=== PATIENT | female | born 1945 | race Caucasian/White ===

== ENCOUNTER 2017-08-20 10:10 | Inpatient (IN) | payer MEDICARE ==
[~2017-08-20] VITALS: Ht 162.6 cm; Wt 79.4 kg
[~2017-08-20 10:10] MED LIST: ADVAIR 500/501 EA INH; ASPIRIN CHEW81 MG PO; ATROVENT HFA12.9 GM INH; CLONAZEPAM1 M1 PO; FOSINOPRIL SODI10 MG PO; GEMFIBROZIL600 MG PO; HYDRALAZINE HCL25 MG PO; INDOMETHACIN1 MG PO; LASIX20 MG PO; METOPROLOL SUCC50 MG PO; NEURONTIN100 MG PO; NOVOLOG MI100 UNITS/ SC; OMEPRAZOLE40 MG PO; PROMETHAZINE HC25 M1 PO; SERTRALINE HCL50 MG PO; TIZANIDINE HCL4 MG PO; TRAZODONE HCL50 MG PO; TYLENOL # 31 EA PO
--- OUTSIDE RECORDS SUMMARY | 2017-08-20 10:13 | XMS REPORT | Clinical Summary ---
Author Author [facility] Address Unknown Phone Unavailable Care Team Providers Care Light Adjuster Name Role Phone Anuja Palacios MD PCP Allergies No Known Allergies Current Medications Prescription Sig. Disp. Refills Start End Date Status Date acetaminophen-codeine Take 1 tablet by mouth 4 Active (TYLENOL WITH CODEINE #3) (four) times a day. 300-30 mg per tablet atorvastatin (LIPITOR) 10 Take 10 mg by mouth every Active MG tablet morning. cyanocobalamin 1,000 Inject 1,000 mcg into the Active mcg/mL injection shoulder, thigh, or buttocks every 30 (thirty) days. donepezil (ARICEPT) 10 MG Take 10 mg by mouth Active tablet nightly. ferrous sulfate 325 (65 Take 325 mg by mouth Active FE) MG tablet daily with breakfast. folic acid (FOLVITE) 1 MG Take 1 mg by mouth every Active tablet morning. gabapentin (NEURONTIN) Take 300 mg by mouth 3 Active 300 mg capsule (three) times a day. levETIRAcetam (KEPPRA) Take 750 mg by mouth Active 750 MG tablet nightly. levothyroxine (SYNTHROID, Take 50 mcg by mouth Active LEVOXYL) 50 mcg tablet every morning. insulin asp prt-insulin Inject 25 Units under the Active ASPART (NovoLOG 70/30) skin every morning. 100 unit/mL (70-30) injection insulin asp prt-insulin Inject 20 Units under the Active ASPART (NovoLOG 70/30) skin nightly. 100 unit/mL (70-30) injection nystatin (MYCOSTATIN) Apply 1 application Active 100,000 unit/gram cream topically 2 (two) times a day. omeprazole (PriLOSEC) 40 Take 40 mg by mouth every Active MG capsule morning. ondansetron (ZOFRAN) 4 MG Take 4 mg by mouth every Active tablet 6 (six) hours as needed for nausea or vomiting. promethazine (PHENERGAN) Take 25 mg by mouth daily Active 25 MG tablet as needed for nausea or vomiting. sertraline (ZOLOFT) 50 MG Take 50 mg by mouth every Active tablet morning. tiZANidine (ZANAFLEX) 4 Take 4 mg by mouth 2 Active MG tablet (two) times a day. traMADol (ULTRAM) 50 mg Take 50 mg by mouth every Active tablet 6 (six) hours as needed for moderate pain. traZODone (DESYREL) 150 Take 150 mg by mouth Active MG tablet nightly. amLODIPine (NORVASC) 10 Take 10 mg by mouth Active mg tablet nightly. aspirin (ECOTRIN) 81 MG Take 81 mg by mouth Active enteric coated tablet daily. fluticasone (FLONASE) 50 1 spray by Each Nare Active mcg/actuation nasal spray route 2 (two) times a day. metoprolol tartrate Take 25 mg by mouth 2 Active (LOPRESSOR) 25 mg tablet (two) times a day. mirtazapine (REMERON) 45 Take 45 mg by mouth Active MG tablet nightly. docusate sodium (COLACE) Take 100 mg by mouth Active 100 MG capsule every morning. insulin ASPART (NovoLOG Inject 0-8 Units under Active Flexpen U-100 Insulin) the skin 3 (three) times 100 unit/mL insulin pen a day with meals. furosemide (LASIX) 20 mg Take 20 mg by mouth Active tablet daily. hydrALAZINE (APRESOLINE) Take 1 tablet (50 mg 90 tablet 2 08/14/19 09/13/19 Active 50 MG tablet total) by mouth 3 (three) 18 18 times a day for 30 days. amoxicillin-pot Take 1 tablet by mouth 2 14 tablet 0 08/14/19 Active clavulanate (AUGMENTIN) (two) times a day for 7 18 18 875-125 mg per tablet days. FLUTICASONE/SALMETEROL Inhale 3 puffs daily. 08/07/19 Discontin (ADVAIR HFA INHL) 18 ued AMLODIPINE BESYLATE, 10 mg daily. 08/07/19 Discontin BULK, MISC 18 ued clonIDINE (CATAPRES) 0.1 Take 0.1 mg by mouth 06/02/19 Discontin MG tablet nightly. 18 ued FLUTICASONE PROPIONATE, 2 sprays daily. 50 mcg/ 08/07/19 Discontin BULK, MISC spray 18 ued mirtazapine (REMERON) 15 Take 45 mg by mouth 08/07/19 Discontin MG tablet nightly. 18 ued insulin ASPART (NovoLOG) Inject under the skin 3 08/07/19 Discontin 100 unit/mL injection (three) times a day 18 ued before meals. Sliding scale nitrofurantoin Take 100 mg by mouth 2 05/26/20 06/02/19 Discontin (MACRODANTIN) 100 MG (two) times a day. 17 18 ued capsule metoprolol tartrate Take 1 tablet (25 mg 60 tablet 0 06/02/19 Discontin (LOPRESSOR) 25 mg tablet total) by mouth 2 (two) 18 18 ued times a day for 30 days. sulfamethoxazole-trimetho Take 1 tablet by mouth 2 14 tablet 0 06/02/19 Discontin prim (BACTRIM DS) 800-160 (two) times a day for 7 18 18 ued mg per tablet days. aspirin (ECOTRIN) 81 MG Take 1 tablet (81 mg 30 tablet 0 06/02/19 Discontin enteric coated tablet total) by mouth daily for 18 18 ued 30 days. sulfamethoxazole-trimetho Take 1 tablet by mouth 2 14 tablet 0 06/09/19 prim (BACTRIM DS) 800-160 (two) times a day for 7 18 18 mg per tablet days. metoprolol tartrate Take 1 tablet (25 mg 60 tablet 0 06/02/19 (LOPRESSOR) 25 mg tablet total) by mouth 2 (two) 18 18 times a day for 30 days. aspirin (ECOTRIN) 81 MG Take 1 tablet (81 mg 30 tablet 0 06/02/19 enteric coated tablet total) by mouth daily for 18 18 30 days. hydrALAZINE (APRESOLINE) Take 1 tablet (25 mg 90 tablet 0 06/02/19 07/02/19 25 MG tablet total) by mouth every 8 18 18 (eight) hours for 30 days. clonIDINE (CATAPRES) 0.1 Take 0.1 mg by mouth 08/14/19 Discontin MG tablet nightly. 18 ued hydrALAZINE (APRESOLINE) Take 25 mg by mouth 3 08/14/19 Discontin 25 MG tablet (three) times a day. 18 ued Active Problems Problem Noted Date Pneumonia due to infectious organism 08/06/2017 Encephalopathies 06/01/2017 Dementia without behavioral disturbance 06/01/2017 Acute cystitis without hematuria 05/31/2017 Stroke 06/01/2007 Hepatitis C 06/01/2006 Overview: Treated Cirrhosis 06/01/2006 Diabetes mellitus 06/01/1994 Hypertension Renal disorder Encounters Date Type Specialty Care Team Description 08/13/2017 Patient Quality Angelica Ibrahim, PEGGY Outreach 08/13/2017 Documentation Trust Mail Clerk Tom Saldivar RN 08/06/2017 [facility] General Internal Medicine Wyatt Barriga MD Pneumonia due to - Encounter Avinash Zaragoza MD infectious organism, 08/13/2017 unspecified laterality, unspecified part of lung (Primary Dx); COPD exacerbation; Shortness of breath; Weakness; Chronic kidney disease, unspecified CKD stage 05/31/2017 [facility] General Internal Medicine Dana Causey MD Acute cystitis without - Encounter Anjum Jones, hematuria (Primary Dx) 06/02/2017 DO Halley Landry MD after 08/19/2016 Immunizations Name Dates Previously Given Next Due Pneumococcal Conjugate 08/08/2017 [facility] Social History Tobacco Use Types Packs/Day Years Used Date Never Smoker Smokeless Tobacco: Never Used Alcohol Use Drinks/Week oz/Week Comments No Sex Assigned at Date Recorded Not on file Last Filed Vital Signs Vital Sign Reading Time Taken Blood Pressure 158/65 08/13/2017 11:45 AM CDT Pulse 68 08/13/2017 11:45 AM CDT Temperature 36.5 C (97.7 F) 08/13/2017 11:45 AM CDT Respiratory Rate 20 08/13/2017 11:45 AM CDT Oxygen Saturation 98% 08/13/2017 11:45 AM CDT Inhaled Oxygen - - Concentration Weight 103 kg (226 lb) 08/06/2017 8:02 PM HEARINGS REPORTER Height 162.6 cm (5' 4") 08/06/2017 8:02 PM HEARINGS REPORTER Body Mass Index 38.79 08/06/2017 8:02 PM HEARINGS REPORTER Plan of Treatment Health Maintenance Due Date Last Done Comments FOOT EXAM 08/29/1955 OPHTHALMOLOGY EXAM 08/29/1955 COLONOSCOPY 08/29/1995 MAMMOGRAM 08/29/1995 ZOSTER VACCINE 2005 PNEUMOCOCCAL 2010 POLYSACCHARIDE VACCINE AGE 65 AND OVER INFLUENZA VACCINE 12/30/2016 PNEUMOCOCCAL-13 Completed 08/08/2017 Procedures Procedure Name Priority Date/Time Associated Diagnosis Comments ECHOCARDIOGRAM 2D Routine 08/07/2017 Results for this COMPLETE W MMODE SPECTRAL 10:52 AM HEARINGS REPORTER procedure are in the COLOR DOPPLER (97357) results section. after 08/19/2016 Results * POC glucose (08/13/2017 11:46 AM) Only the most recent of 33 results within the time period is included. Component Value Ref Range POC glucose 261 (H) 65 - 100 mg/dL Comment: Meter ID: [id number] Railroad Surveyor: Christiane Fischer Specimen Performing Laboratory [facility] DEPARTMENT OF PATHOLOGY AND GENOMIC MEDICINE [address] [place] [address] * Surgical pathology request (08/12/2017 12:03 PM) Component Value Ref Range Surgical pathology report See link below for PDF Lab Report Result status This is Final Report to [id number] Specimen Performing Laboratory [facility] DEPARTMENT OF PATHOLOGY AND GENOMIC MEDICINE [address] [place] [address] * CT Bone Marrow Bx W Asp Same Site (08/12/2017 9:38 AM) Specimen Performing Laboratory [facility] [address] [place] [phone] BONE MARROW BX W ASP SAME SITE Unexplained anemia and renal insufficiency Total DLP 273.5 mGy/cm FINDINGS: CT images of the pelvis were obtained without contrast. The skin overlying the leftiliac crest was prepped and draped in a sterile manner. The skin was anesthetized with 1% lidocaine. UsingCT guidance, a 11-gauge vertebroplasty core biopsy needle system was introduced percutaneously into the iliac crests and a bone marrow biopsy samples were obtained . The samples were submitted to the department of pathology for initial review. Following completion of the procedure, the needles were removed and hemostasis was obtained. The patient tolerated the procedure well. CONSCIOUS SEDATION: The patient was given conscious sedation with fentanyl and Versed intravenously. Constant nurse observation was performed.Throughout the conscious sedation duration, the patient was continuously monitored by a registered nurse.The physician intraservice [id number] time with the patient was 28 minutes. COMPLICATIONS: NONE IMPRESSION: 1. Status post CT-guided bone marrow biopsy 2. Conscious sedation was given as described above. Procedure Note [facility], Radiology Results Incoming - 08/12/2017 3:[address] BONE MARROW BX W ASP SAME SITE Unexplained anemia and renal insufficiency Total DLP 273.5 mGy/cm FINDINGS: CT images of the pelvis were obtained without contrast. The skin overlying the left iliac crest was prepped and draped in a sterile manner. The skin was anesthetized with 1% lidocaine. Using CT guidance, a 11-gauge vertebroplasty core biopsy needle system was introduced percutaneously into the iliac crests and a bone marrow biopsy samples were obtained . The samples were submitted to the department of pathology for initial review. Following completion of the procedure, the needles were removed and hemostasis was obtained. The patient tolerated the procedure well. CONSCIOUS SEDATION: The patient was given conscious sedation with fentanyl and Versed intravenously. Constant nurse observation was performed. Throughout the conscious sedation duration, the patient was continuously monitored by a registered nurse. The physician intraservice [id number]-[id number] time with the patient was 28 minutes. COMPLICATIONS: NONE IMPRESSION: 1. Status post CT-guided bone marrow biopsy 2. Conscious sedation was given as described above. * Flow cytometry evaluation (08/12/2017 9:15 AM) Component Value Ref Range Flow cytometry evaluation See link below for PDF Lab Report Specimen Performing Laboratory [facility] DEPARTMENT OF PATHOLOGY AND GENOMIC MEDICINE [address] [place] [address] * Estimated GFR (08/12/2017 5:48 AM) Only the most recent of 8 results within the time period is included. Component Value Ref Range GFR Non Af Amer 20 (A) mL/min/1.73 m2 GFR Af Amer 24 (A) mL/min/1.73 m2 Comment: Chronic kidney disease: <60 mL/min/1.73m2 Kidney failure: <15 mL/min/1.73m2 The estimated GFR is calculated from the IDMS-traceable Modification of Diet in Renal Disease Equation. The accuracy of the calculation is poor when the creatinine is normal. Calculated values >90 mL/min/1.73m2 are not reported. This equation has not been validated in children (<18 years), women, the elderly (>70 years), or ethnic groups other than Caucasians and Americans. Specimen Performing Laboratory Plasma specimen [facility] DEPARTMENT OF PATHOLOGY AND GENOMIC MEDICINE [address] [place] [address] * Manual differential (08/12/2017 5:48 AM) Only the most recent of 3 results within the time period is included. Component Value Ref Range Manual differential PERFORMED Neutrophils 66.0Comment: Corrected result; previously reported 36.0 - 66.0 % as 62.3 on 08/12/2017 at 06:08 by I/AUT Lymphocytes 30.0Comment: Corrected result; previously reported 24.0 - 44.0 % as 23.8 on 08/12/2017 at 06:08 by I/AUT Monocytes 3.0Comment: Corrected result; previously reported 0.0 - 6.0 % as 7.6 on 08/12/2017 at 06:08 by I/AUT Eosinophils 1.0Comment: Corrected result; previously reported 0.0 - 6.0 % as 3.5 on 08/12/2017 at 06:08 by I/AUT Basophils 0.0Comment: Corrected result; previously reported 0.0 - 1.2 % as 0.6 on 08/12/2017 at 06:08 by I/AUT Metamyelocytes 0 0 - 1 % Promyelocytes 0 0 - 1 % Platelet slide review Tressa adequate Anisocytosis slight Polychromasia slight Basophilic stippling Occasional Tear drop cells rare Schistocytes rare Ovalocytes rare Enlarged platelets rare Specimen Performing Laboratory [facility] DEPARTMENT OF PATHOLOGY AND GENOMIC MEDICINE [address] [place] [address] * Partial thromboplastin time, activated (08/12/2017 5:48 AM) Only the most recent of 2 results within the time period is included. Component Value Ref Range PTT 30.2 23.0 - 36.0 sec Comment: PTT therapeutic range for unfractionated heparin is 61.0-112.0 seconds which corresponds to Anti-Xa 0.3-0.7 U/ml. Note: Change in Panic Value The PTT Panic Value is changing from 110 sec. to 100 sec. due to new instrumentation and reagents. Correlation studies have been performed to validate this result. Specimen Performing Laboratory Blood [facility] DEPARTMENT OF PATHOLOGY AND GENOMIC MEDICINE [address] [place] [address] * Prothrombin time with INR (08/12/2017 5:48 AM) Only the most recent of 2 results within the time period is included. Component Value Ref Range Prothrombin time 12.9 12.0 - 15.0 sec INR 0.96 0.92 - 1.12 Comment: For patients on anticoagulant therapy, reference ranges below: Indication: INR Value Treatment of Venous Thrombosis, 2.0-3.0 pulmonary emboli, or prophylaxis of a venous thrombosis, or systemic emboli. High dose, high risk patients 3.0-4.5 with mechanical valves. NOTE: INR values over 3.0 are sometimes associated with gastrointestinal hemorrhage, especially values over 4.0. Specimen Performing Laboratory Blood [facility] DEPARTMENT OF PATHOLOGY AND GENOMIC MEDICINE [address] [place] [address] * CBC with platelet and differential (08/12/2017 5:48 AM) Only the most recent of 8 results within the time period is included. Component Value Ref Range WBC 6.9 4.2 - 11.0 k/uL RBC 3.24 (L) 4.04 - 5.86 m/uL HGB 9.3 (L) 11.5 - 15.3 g/dL HCT 29.4 (L) 34.0 - 45.0 % MCV 90.7 80.0 - 98.0 fL MCH 28.7 27.0 - 34.0 pg MCHC 31.6 31.5 - 36.5 g/dL RDW - SD 55.3 (H) 37.0 - 51.0 fL MPV 11.7 (H) 7.4 - 10.4 fL Platelet count 137 (L) 150 - 400 k/uL Nucleated RBC 0.00 /100 WBC Neutrophils 66.0Comment: Corrected result; previously reported 36.0 - 66.0 % as 62.3 on 08/12/2017 at 06:08 by I/AUT Lymphocytes 30.0Comment: Corrected result; previously reported 24.0 - 44.0 % as 23.8 on 08/12/2017 at 06:08 by I/AUT Monocytes 3.0Comment: Corrected result; previously reported 0.0 - 6.0 % as 7.6 on 08/12/2017 at 06:08 by I/AUT Eosinophils 1.0Comment: Corrected result; previously reported 0.0 - 6.0 % as 3.5 on 08/12/2017 at 06:08 by I/AUT Basophils 0.0Comment: Corrected result; previously reported 0.0 - 1.2 % as 0.6 on 08/12/2017 at 06:08 by I/AUT Specimen Performing Laboratory Blood [facility] DEPARTMENT OF PATHOLOGY AND GENOMIC MEDICINE [address] [place] [address] * Comprehensive metabolic panel (08/12/2017 5:48 AM) Only the most recent of 3 results within the time period is included. Component Value Ref Range Sodium 139 135 - 150 mEq/L Potassium 4.3 3.5 - 5.0 mEq/L Chloride 105 100 - 109 mEq/L CO2 29 24 - 32 mmol/L Anion gap 5 (L) 7 - 15 mEq/L Comment: Starting from August , anion gap calculation no longer incorporates potassium. Please note the change. BUN 38 (H) 7 - 18 mg/dL Creatinine 2.4 (H) 0.8 - 1.5 mg/dL Glucose 92 65 - 100 mg/dL Calcium 7.7 (L) 8.6 - 10.7 mg/dL Protein 4.9 (L) 6.3 - 8.2 g/dL Albumin 1.6 (L) 3.2 - 5.0 g/dL A/G ratio 0.5 (L) 0.7 - 3.8 Alkaline phosphatase 26 (L) 30 - 120 U/L AST 14 (L) 15 - 37 U/L ALT <6 (L) 30 - 65 U/L Total bilirubin 0.2 0.2 - 1.2 mg/dL Specimen Performing Laboratory Plasma specimen [facility] DEPARTMENT OF PATHOLOGY AND GENOMIC MEDICINE [address] [place] [address] * Haptoglobin (08/10/2017 8:18 PM) Component Value Ref Range Haptoglobin 44 30 - 200 mg/dL Specimen Performing Laboratory Plasma specimen [facility] DEPARTMENT OF PATHOLOGY AND GENOMIC MEDICINE [address] [place] [address] * Folate RBC (group test) (08/10/2017 8:18 PM) Component Value Ref Range RBC folate 1,452 499 - 1,504 ng/mL Specimen Performing Laboratory Blood [facility] DEPARTMENT OF PATHOLOGY AND GENOMIC MEDICINE [address] [place] [address] * Transfuse RBC (08/10/2017 5:00 PM) Only the most recent of 2 results within the time period is included. * Total iron binding capacity (08/10/2017 12:54 PM) Component Value Ref Range Iron level 112 76 - 198 ug/dL Iron binding capacity 196 (L) 271 - 474 ug/dL % Saturation 57.1 (H) 15.0 - 38.0 % Specimen Performing Laboratory Plasma specimen [facility] DEPARTMENT OF PATHOLOGY AND GENOMIC MEDICINE [address] [facility] [place] [address] * Folate level (08/10/2017 12:54 PM) Component Value Ref Range Folate 23.5 (H) 3.4 - 20.0 ng/mL Specimen Performing Laboratory Serum [facility] DEPARTMENT OF PATHOLOGY AND GENOMIC MEDICINE [address] [facility] [place] [address] * Ferritin level (08/10/2017 12:54 PM) Component Value Ref Range Ferritin level 300 (H) 10 - 125 ng/mL Specimen Performing Laboratory Serum [facility] DEPARTMENT OF PATHOLOGY AND GENOMIC MEDICINE [address] [place] [address] [place] [address] * Vitamin B12 level (08/10/2017 12:54 PM) Component Value Ref Range Vitamin B12 1,031 (H) 231 - 931 pg/mL Comment: Significant overlap exists between normal and deficiency states. However, most patients with deficiencies will have Serum B12 <200 pg/mL. Specimen Performing Laboratory Serum [facility] DEPARTMENT OF PATHOLOGY AND [facility] MEDICINE [address] [place] [address] [place] [address] * Direct Erin' (RADHA) (08/10/2017 7:30 AM) Component Value Ref Range [id number]-[id number] Polyspecific NEG IgG Erin NEG Specimen Performing Laboratory [facility] DEPARTMENT OF PATHOLOGY AND [facility] MEDICINE [address] [place] [address] [place] [address] * Prepare RBC, 2 Units (08/10/2017 7:30 AM) Component Value Ref Range Product name Red Blood Cells -1, Leukored Unit number [id number] Product code [id number] Dispense status Transfused Blood expiration date Blood type code 0600 Blood type A NEGATIVE Product name Red Blood Cells -1, Leukored Unit number [id number] Product code [id number] Dispense status Transfused Blood expiration date Blood type code 0600 Blood type A NEGATIVE Specimen Performing Laboratory [facility] DEPARTMENT PATHOLOGY AND [facility] MEDICINE [address] [place] [address] [place] [address] * Type and screen (08/10/2017 7:30 AM) Only the most recent of 2 results within the time period is included. Component Value Ref Range ABO grouping A Rh type NEG Antibody screen (gel) NEG Specimen Performing Laboratory Blood [facility] DEPARTMENT OF PATHOLOGY AND GENOMIC MEDICINE [address] [place] [address] * Reticulocyte count (08/10/2017 6:15 AM) Component Value Ref Range Retic %, auto 3.0 % Retic absolute, auto 0.0631 0.0210 - 0.1155 m/uL Specimen Performing Laboratory Blood [facility] DEPARTMENT OF PATHOLOGY AND GENOMIC MEDICINE [address] [place] [address] * Basic metabolic panel (08/10/2017 6:15 AM) Only the most recent of 5 results within the time period is included. Component Value Ref Range Sodium 140 135 - 150 mEq/L Potassium 4.2 3.5 - 5.0 mEq/L Chloride 104 100 - 109 mEq/L CO2 30 24 - 32 mmol/L Anion gap 6 (L) 7 - 15 mEq/L Comment: Starting from August , anion gap calculation no longer incorporates potassium. Please note the change. BUN 33 (H) 7 - 18 mg/dL Creatinine 2.4 (H) 0.8 - 1.5 mg/dL Glucose 104 (H) 65 - 100 mg/dL Calcium 7.4 (L) 8.6 - 10.7 mg/dL Specimen Performing Laboratory Plasma specimen [facility] DEPARTMENT OF PATHOLOGY AND GENOMIC MEDICINE [facility] [place] [address] * Hemoglobin & hematocrit (08/09/2017 5:35 AM) Only the most recent of 2 results within the time period is included. Component Value Ref Range HGB 7.1 (L)Comment: called to nurse Hien Barnes on 11.5 - 15.3 g/dL 2west at 07:34 on 08/09/2017 rmr HCT 22.0 (L) 34.0 - 45.0 % Specimen Performing Laboratory [facility] DEPARTMENT OF PATHOLOGY AND GENOMIC MEDICINE [facility] [place] [address] * Magnesium level (08/09/2017 5:35 AM) Only the most recent of 2 results within the time period is included. Component Value Ref Range Magnesium 1.30 (L) 1.60 - 2.40 mg/dL Specimen Performing Laboratory Plasma specimen [facility] DEPARTMENT OF PATHOLOGY AND GENOMIC MEDICINE [facility] [place] [address] * Smear review (08/08/2017 5:20 AM) Component Value Ref Range Platelet slide review Tressa adequate Polychromasia few Basophilic stippling Occasional Schistocytes rare Spherocytes few Ovalocytes occasional Enlarged platelets few Giant platelets few Elliptocytes few Specimen Performing Laboratory [facility] DEPARTMENT OF PATHOLOGY AND GENOMIC MEDICINE [address] [place] [address] * T3, free (08/08/2017 5:20 AM) Component Value Ref Range T3, free 1.24 (L) 2.18 - 3.98 pmol/L Specimen Performing Laboratory Plasma specimen [facility] DEPARTMENT OF PATHOLOGY AND GENOMIC MEDICINE [address] [place] [address] * Thyroid stimulating hormone (08/08/2017 5:20 AM) Component Value Ref Range TSH 4.20 0.38 - 4.82 uIU/mL Specimen Performing Laboratory Plasma specimen [facility] DEPARTMENT OF PATHOLOGY AND GENOMIC MEDICINE [address] [place] [address] * T4, free (08/08/2017 5:20 AM) Component Value Ref Range T4, free 0.66 (L) 0.70 - 1.61 ng/dL Specimen Performing Laboratory Plasma specimen [facility] DEPARTMENT OF PATHOLOGY AND GENOMIC MEDICINE [address] [place] [address] * Phosphorus level (08/08/2017 5:20 AM) Component Value Ref Range Phosphorus 4.5 2.5 - 4.5 mg/dL Specimen Performing Laboratory Plasma specimen [facility] DEPARTMENT OF PATHOLOGY AND GENOMIC MEDICINE [address] [place] [address] * US Renal (08/07/2017 10:25 PM) Specimen Performing Laboratory [facility] [address] [place] [address] Narrative EXAMINATION:US RENAL CLINICAL HISTORY:Elevated abnormal renal function tests COMPARISON:01/27/2015. FINDINGS: Right kidney: There is no evidence of mass, calculi, or hydronephrosis. The right kidney measures 13.6 x 5.6 x 5.4 cm in size. Left kidney: Obscured by overlying bowel gas. The urinary bladder is unremarkable. IMPRESSION: 1. Normal appearance of the right kidney. 2. Left kidney is obscured by overlying bowel gas and cannot be evaluated. [facility]-[id number] Procedure Note [facility], Radiology Results Incoming - 08/07/2017 10:37 PM HEARINGS REPORTER EXAMINATION: US RENAL CLINICAL HISTORY: Elevated abnormal renal function tests COMPARISON: 01/27/2015. FINDINGS: Right kidney: There is no evidence of mass, calculi, or hydronephrosis. The right kidney measures 13.6 x 5.6 x 5.4 cm in size. Left kidney: Obscured by overlying bowel gas. The urinary bladder is unremarkable. IMPRESSION: 1. Normal appearance of the right kidney. 2. Left kidney is obscured by overlying bowel gas and cannot be evaluated. [facility]-[id number] * Urinalysis screen and microscopy, with reflex to culture (08/07/2017 8:45 PM) Only the most recent of 2 results within the time period is included. Component Value Ref Range Specimen site Clean catch Color, UA Yellow Appearance, UA Cloudy Specific gravity, UA 1.013 1.001 - 1.035 pH, UA 5.0 5.0 - 8.5 Protein, UA 3+ (A) Negative Glucose, UA 3+ (A) Negative Ketones, UA Negative Negative Bilirubin, UA Negative Negative Blood, UA Negative Negative Nitrite, UA Negative Negative Urobilinogen, UA Negative <2.0 Leukocyte esterase, UA Small (A) Negative WBC, UA 168 (H) 0 - 5 /HPF RBC, UA 8 (H) 0 - 5 /HPF Bacteria, UA Few None seen Yeast, UA None seen Yeast with pseudohyphae, None seen UA Specimen Performing Laboratory Urine [facility] DEPARTMENT OF PATHOLOGY AND GENOMIC MEDICINE [address] [place] [address] * Sodium level, urine, random (08/07/2017 8:45 PM) Component Value Ref Range Sodium, urine, random 52 (A) mEQ/L Specimen Performing Laboratory Urine - Urine, clean [facility] DEPARTMENT OF PATHOLOGY AND GENOMIC MEDICINE catch [address] [place] [address] * Creatinine level, urine, random (08/07/2017 8:45 PM) Component Value Ref Range Creatinine, urine, random 53 mg/dL Specimen Performing Laboratory Urine - Urine, clean [facility] DEPARTMENT OF PATHOLOGY AND GENOMIC MEDICINE catch [address] [place] [address] * Gram stain (08/07/2017 7:45 PM) Only the most recent of 2 results within the time period is included. Component Value Ref Range Gram stain result Rare WBC's Rare Gram positive cocci in pairs Comment: Specimen Information Specimen Source: Urine Specimen Site: Clean catch Specimen Performing Laboratory Urine [facility] DEPARTMENT OF PATHOLOGY AND GENOMIC MEDICINE [address] [place] [id number] * Urine culture (08/07/2017 7:45 PM) Only the most recent of 2 results within the time period is included. Component Value Ref Range Urine culture isolate Enterococcus faecalis colony count undetermined, probably due to inhibiting substance. The performance characteristics of this assay on this isolate were validated by the Microbiology Laboratory at [facility]. This source has not been approved by the U.S. Food and Drug Administration. The results are not intended to be used as the sole means for clinical diagnosis or patient management. The Microbiology Laboratory is authorized under the clinical Laboratory Improvement Amendments of 1988 (CLIA-88) to perform high complexity testing. The performance characteristics of this assay on this isolate were validated by the Microbiology Laboratory at [facility]. This source has not been approved by the U.S. Food and Drug Administration. The results are not intended to be used as the sole means for clinical diagnosis or patient management. The Microbiology Laboratory is authorized under the clinical Laboratory Improvement Amendments of 1988 (CLIA-88) to perform high complexity testing. This organism is Vancomycin Sensitive. (A) Comment: Specimen Information Specimen Source: Urine Specimen Site: Clean catch Specimen Performing Laboratory Urine [facility] DEPARTMENT OF PATHOLOGY AND GENOMIC MEDICINE [address] [place] [address] Organism Antibiotic Method Susceptibility Enterococcus faecalis Ampicillin CINDY 2 mcg/mL: Susceptible Enterococcus faecalis Nitrofurantoin CINDY <=16 mcg/mL: Susceptible Enterococcus faecalis Levofloxacin CINDY <=1 mcg/mL: Susceptible Enterococcus faecalis Linezolid CINDY <=1 mcg/mL: Susceptible Enterococcus faecalis Minocycline CINDY >8 mcg/mL: Resistant Enterococcus faecalis Tetracycline CINDY >8 mcg/mL: Resistant Enterococcus faecalis Vancomycin CINDY 1 mcg/mL: Susceptible * Echocardiogram complete w contrast and 3D if needed (08/07/2017 10:52 AM) Component Value Ref Range BSA 2.15 m2 Velocity Ratio (V1/V2) 0.74 m/s IVS,d 1.14 0.6 - 1.2 cm EF 57.14 % LVPWD,d 1.21 cm AoV Mean PG 3.83 mmHg AV LVOT peak gradient 3.95 mmHg MV mean gradient 2.40 mmHg MV valve area p 1/2 3.16 cm2 method E/A ratio 1.15 E wave decelartion time 239.92 msec LVOT Diam,S 2.13 cm LVOT area 3.56 cm2 LVOT Vmax 0.99 m/s LVOT VTI 0.25 m AoV Peak PG 7.10 mmHg MV Peak E Heath 1.22 m/s MV stenosis pressure 1/2 69.58 ms time MV Peak A Heath 1.06 m/s Ao Root Diameter 3.02 cm AoV Area, Vmax 2.64 cm2 AoV Area, VTI 2.82 cm2 AoV Vmax 1.33 m/s IVS/LVPW,2D 0.94 Left Atrium Dimension 4.21 cm Anterior LV,d 4.74 cm LV,s 3.32 cm MV E A ratio 1.15 mmHg MR peak grad 5.68 mmHg Ao Root Diameter 3.02 cm LV SYS VOL 44.66 ml LV HOFFMAN VOL 104.20 ml LV SV Teich 2D 59.53 ml LV Vol s Teich PSAX 44.66 ml LVOT CO 5.51 l/min LVOT HR for LVOT CO 62.01 bpm MV Vmax 1.19 m MV VTI Tips 0.37 m AoV Vmn 0.93 IVS s 2D 1.37 LV FS Cube 2D 29.97 LV FS Teich 2D 29.97 AoV VTI 0.32 m LV EF,2D 65.66 % MV AE ratio 0.87 LVOT Vmn 0.70 Aov area Vmn 2.69 cm2 LVOT mean grad 2.14 mmHg MAX Pred HR 148.06 85 of MPHR 125.85 Calc MPHR 148.06 bpm IVS pct thck PLAX 20.22 % LV SV Cube 2D 69.75 ml LV vol d cube 2D 106.22 ml LV vol s cube 2D 36.47 ml LVPW pct thck PLAX 50.32 % LVPW s PLAX 1.82 cm MV Decel slope 5.09 m/s2 Pred Exer Dur R1 6.61 Pred METS R1 5.35 Specimen Performing Laboratory [facility] [address] [place] [address] Narrative Left atrium size is mildly dilated. [id number] mitral valve regurgitation The left ventricle chamber size is upper limits of normal. There is mild left ventricular concentric hypertrophy. Left Ventricular ejection fraction is 50 - 55%. Right ventricular size is normal. No pericardial effusion The mitral valve appears thickened and calcified . Spectral Doppler shows pseudonormal pattern of left ventricular diastolic filling. * Hemoglobin A1c (08/07/2017 6:00 AM) Component Value Ref Range Hemoglobin A1C 4.8 4.0 - 6.0 % Comment: Less than 6% - Goal of therapy for Type II Diabetes Less than 7%- Goal of therapy for Type I Diabetes Less than 8%- Acceptable control for Type I or Type II Diabetes Greater than 8%- Unacceptable control; action indicated. (A DA94) Specimen Performing Laboratory Blood [facility] DEPARTMENT OF PATHOLOGY AND GENOMIC MEDICINE [address] [place] [address] [place] [address] * Lactic acid level, SEPSIS - Now and repeat 2x every 3 hours (08/06/2017 4:57 PM) Component Value Ref Range Lactic acid 1.9 0.5 - 2.2 mmol/L Specimen Performing Laboratory Blood [facility] DEPARTMENT OF PATHOLOGY AND GENOMIC MEDICINE [address] [place] [address] [place] [address] * Troponin (08/06/2017 4:57 PM) Only the most recent of 4 results within the time period is included. Component Value Ref Range Troponin <0.01 0.00 - 0.60 ng/mL Comment: 0.11 - 1.49 ng/ml May indicate increased risk of acute coronary syndrome. >=1.5 ng/ml Consistent with acute myocardial infarction. The diagnostic value of a single normal or non-diagnostic result is questionable. Serial samples at 2-6 hour intervals are required to rule out acute myocardial injury. Specimen Performing Laboratory Plasma specimen [facility] DEPARTMENT OF PATHOLOGY AND GENOMIC MEDICINE [address] [facility] [place] [address] * IR Non-Tunneled Central Line Placement (08/06/2017 3:51 PM) Specimen Performing Laboratory [facility] [address] [place] [address] Narrative Examination:IR NON-TUNNELED CENTRAL LINE PLACEMENT Clinical history:"multiple iv drugs" Comparison:There are no prior studies for comparison. Anesthesia:Lidocaine solution was injected into the involved tissues. Conscious sedation:Conscious sedation medications were not administered. Reference air kerma:1 mGy. Technique:The patient was prepared using sterile technique after signed, informed consent was obtained. Maximal sterile barrier technique was implemented.The right internal jugularvein was imaged sonographically and found to be patent and appropriate for percutaneous access.Under real-time sonographic guidance, the vessel was accessed using a 21-gauge needle with real-time visualization of needle entry into the vessel.A sonographic image of the accessed vessel was obtained as permanent documentation.Seldinger technique was used to advance a standard guidewire into the inferior vena cava.After the percutaneous tissues were dilated, the catheter was introduced over a wire and positioned using real-time fluoroscopic guidance with the catheter tip within the right atrium.The catheter was tested and found to function appropriately.The external portion of the catheter was sutured to the adjacent skin. Catheter size: 7 Turkish. Length: 16 cm. Estimated blood loss:Less than 2 cc. Complications:None. Specimens removed:None. Assistants:None. IMPRESSION:A 7 Turkish, 16 cm in length, triple lumen, nontunneled central venous catheter was placed via the right internal jugular vein using image guidance and without incident as described above.The catheter is ready for routine use. Thank you for allowing us to participate in the care of your patient. [id number] Procedure Note Hm Interface, Radiology Results Incoming - 08/06/2017 4:12 PM HEARINGS REPORTER Examination: IR NON-TUNNELED CENTRAL LINE PLACEMENT Clinical history: "multiple iv drugs" Comparison: There are no prior studies for comparison. Anesthesia: Lidocaine solution was injected into the involved tissues. Conscious sedation: Conscious sedation medications were not administered. Reference air kerma: 1 mGy. Technique: The patient was prepared using sterile technique after signed, informed consent was obtained. Maximal sterile barrier technique was implemented. The right internal jugular vein was imaged sonographically and found to be patent and appropriate for percutaneous access. Under real-time sonographic guidance, the vessel was accessed using a 21-gauge needle with real-time visualization of needle entry into the vessel. A sonographic image of the accessed vessel was obtained as permanent documentation. Seldinger technique was used to advance a standard guidewire into the inferior vena cava. After the percutaneous tissues were dilated, the catheter was introduced over a wire and positioned using real-time fluoroscopic guidance with the catheter tip within the right atrium. The catheter was tested and found to function appropriately. The external portion of the catheter was sutured to the adjacent skin. Catheter size: 7 Turkish. Length: 16 cm. Estimated blood loss: Less than 2 cc. Complications: None. Specimens removed: None. Assistants: None. IMPRESSION: A 7 Turkish, 16 cm in length, triple lumen, nontunneled central venous catheter was placed via the right internal jugular vein using image guidance and without incident as described above. The catheter is ready for routine use. Thank you for allowing us to participate in the care of your patient. [facility]-[id number] * US Guided Vascular Access (08/06/2017 3:51 PM) Specimen Performing Laboratory [facility] [address] [place] [address] Narrative Examination:IR NON-TUNNELED CENTRAL LINE PLACEMENT Clinical history:"multiple iv drugs" Comparison:There are no prior studies for comparison. Anesthesia:Lidocaine solution was injected into the involved tissues. Conscious sedation:Conscious sedation medications were not administered. Reference air kerma:1 mGy. Technique:The patient was prepared using sterile technique after signed, informed consent was obtained. Maximal sterile barrier technique was implemented.The right internal jugularvein was imaged sonographically and found to be patent and appropriate for percutaneous access.Under real-time sonographic guidance, the vessel was accessed using a 21-gauge needle with real-time visualization of needle entry into the vessel.A sonographic image of the accessed vessel was obtained as permanent documentation.Seldinger technique was used to advance a standard guidewire into the inferior vena cava.After the percutaneous tissues were dilated, the catheter was introduced over a wire and positioned using real-time fluoroscopic guidance with the catheter tip within the right atrium.The catheter was tested and found to function appropriately.The external portion of the catheter was sutured to the adjacent skin. Catheter size: 7 Turkish. Length: 16 cm. Estimated blood loss:Less than 2 cc. Complications:None. Specimens removed:None. Assistants:None. IMPRESSION:A 7 Turkish, 16 cm in length, triple lumen, nontunneled central venous catheter was placed via the right internal jugular vein using image guidance and without incident as described above.The catheter is ready for routine use. Thank you for allowing us to participate in the care of your patient. [facility][id number] Procedure Note Hm Interface, Radiology Results Incoming - 08/06/2017 4:12 PM HEARINGS REPORTER Examination: IR NON-TUNNELED CENTRAL LINE PLACEMENT Clinical history: "multiple iv drugs" Comparison: There are no prior studies for comparison. Anesthesia: Lidocaine solution was injected into the involved tissues. Conscious sedation: Conscious sedation medications were not administered. Reference air kerma: 1 mGy. Technique: The patient was prepared using sterile technique after signed, informed consent was obtained. Maximal sterile barrier technique was implemented. The right internal jugular vein was imaged sonographically and found to be patent and appropriate for percutaneous access. Under real-time sonographic guidance, the vessel was accessed using a 21-gauge needle with real-time visualization of needle entry into the vessel. A sonographic image of the accessed vessel was obtained as permanent documentation. Seldinger technique was used to advance a standard guidewire into the inferior vena cava. After the percutaneous tissues were dilated, the catheter was introduced over a wire and positioned using real-time fluoroscopic guidance with the catheter tip within the right atrium. The catheter was tested and found to function appropriately. The external portion of the catheter was sutured to the adjacent skin. Catheter size: 7 Turkish. Length: 16 cm. Estimated blood loss: Less than 2 cc. Complications: None. Specimens removed: None. Assistants: None. IMPRESSION: A 7 Turkish, 16 cm in length, triple lumen, nontunneled central venous catheter was placed via the right internal jugular vein using image guidance and without incident as described above. The catheter is ready for routine use. Thank you for allowing us to participate in the care of your patient. [id number] * Blood culture, aerobic & anaerobic (08/06/2017 1:17 PM) Only the most recent of 2 results within the time period is included. Component Value Ref Range Blood culture isolate No growth after 5 days of incubation. Comment: Specimen Information Specimen Source: Blood Specimen Site: LEFT AC Specimen Performing Laboratory Blood [facility] DEPARTMENT OF PATHOLOGY AND GENOMIC MEDICINE [address] [place] [address] * Respiratory pathogen panel (08/06/2017 1:12 PM) Component Value Ref Range Respiratory pathogen Negative for all pathogens tested: panel Negative for Adenovirus Negative for Coronavirus HKU1 Negative for Coronavirus NL63 Negative for Coronavirus 229E Negative for Coronavirus OC43 Negative for Human Metapneumovirus Negative for Rhinovirus/Enterovirus Negative for Influenza A Negative for Influenza A/H1 Negative for Influenza A/H3 Negative for Influenza A/H1-2009 Negative for Influenza B Negative for Parainfluenza Virus 1 Negative for Parainfluenza Virus 2 Negative for Parainfluenza Virus 3 Negative for Parainfluenza Virus 4 Negative for Respiratory Syncytial Virus Negative for Bordetella pertussis Negative for Chlamydophila pneumoniae Negative for Mycoplasma pneumoniae This real-time PCR assay detects the presence of nucleic acids (RNA or DNA) for the respiratory pathogens listed. A result of "Not-detected" does not exclude the possibility of the presence of one or more pathogens at concentrations less than the detectable limits of the assay. Comment: Specimen Information Specimen Source: Nasopharyngeal Specimen Site: swab Specimen Performing Laboratory Nasopharyngeal [facility] DE[place]MENT [place] [address] * Influenza antigen (08/06/2017 1:12 PM) Component Value Ref Range Influenza antigen Negative for Influenza A/B antigen. Comment: Specimen Information Specimen Source: Nares Specimen Site: Right Specimen Performing Laboratory Nares - Right [facility] DEPARTMENT OF PATHOLOGY AND GENOMIC MEDICINE [address] [place] [address] * XR Chest 1 Vw Portable (08/06/2017 12:35 PM) Specimen Performing Laboratory [facility] [address] [place] [address] Narrative EXAMINATION:XR CHEST 1 VW PORTABLE CLINICAL HISTORY:RALES COMPARISON:02/21/2016 IMPRESSION: 1.Small bilateral pleural effusions and hazy basilar opacities, likely subsegmental atelectasis versus possible infiltrate. 2.Normal heart size. 3.No acute osseous abnormality. [facility]-[id number] Procedure Note Interface, Radiology Results Incoming - 08/06/2017 1:03 PM HEARINGS REPORTER EXAMINATION: XR CHEST 1 VW PORTABLE CLINICAL HISTORY: RALES COMPARISON: 02/21/2016 IMPRESSION: 1. Small bilateral pleural effusions and hazy basilar opacities, likely subsegmental atelectasis versus possible infiltrate. 2. Normal heart size. 3. No acute osseous abnormality. [facility]-[id number] * B natriuretic peptide (08/06/2017 12:13 PM) Component Value Ref Range BNP 226 (H) 0 - 100 pg/mL Specimen Performing Laboratory Blood [facility] DEPARTMENT OF PATHOLOGY AND GENOMIC MEDICINE [address] [place] [address] * Creatine kinase, total (CPK) (08/06/2017 12:13 PM) Component Value Ref Range Creatine kinase 39 (L) 61 - 224 U/L Specimen Performing Laboratory Plasma specimen [facility] DEPARTMENT OF PATHOLOGY AND GENOMIC MEDICINE [address] [place] [address] * Hepatic function panel (08/06/2017 12:13 PM) Component Value Ref Range Albumin 2.0 (L) 3.2 - 5.0 g/dL Total bilirubin 0.3 0.2 - 1.2 mg/dL Bilirubin direct 0.1 0.0 - 0.4 mg/dL Alkaline phosphatase 53 30 - 120 U/L Protein 6.4 6.3 - 8.2 g/dL ALT 10 (L) 30 - 65 U/L AST 15 15 - 37 U/L Specimen Performing Laboratory Plasma specimen [facility] DEPARTMENT OF PATHOLOGY AND GENOMIC MEDICINE [address] [place] [address] * ECG 12 lead (08/06/2017 11:51 AM) Only the most recent of 3 results within the time period is included. Component Value Ref Range Ventricular rate 48 Atrial rate 48 AR interval 128 QRSD interval 78 QT interval 476 QTC interval 425 P axis 1 49 QRS axis 1 36 T wave axis 15 EKG impression Marked sinus bradycardia-Low voltage QRS-Abnormal ECG-In automated comparison with ECG of 01-JUN-2017 16:23,-Vent. rate has decreased BY 25 BPM-Nonspecific T wave abnormality no longer evident in Lateral leads- Specimen Performing Laboratory [facility] [address] [place] [address] * ECG ED Preliminary Interpretation - NOT AN ORDER (08/06/2017 11:35 AM) Quan Barriga MD 08/06/20174:05 PM ECG ED Preliminary Interpretation - Not an Order Performed by: WYATT BARRIGA Authorized by: WYATT BARRIGA ECG reviewed by ED Physician in the absence of a equal opportunity assistant: yes Interpretation: Interpretation: abnormal Rate: ECG rate:48 ECG rate assessment: bradycardic Rhythm: Rhythm: sinus tachycardia Ectopy: Ectopy: none QRS: QRS axis:Normal Conduction: Conduction: normal ST segments: ST segments:Normal T waves: T waves: flattening and inverted Flattening:III Inverted:I * Keppra (Levetiracetam) level (06/01/2017 6:18 AM) Only the most recent of 2 results within the time period is included. Component Value Ref Range Levetiracetam 36 12 - 46 ug/mL Comment: INTERPRETIVE INFORMATION: Keppra (Levetiracetam) Therapeutic Range: 12-46 ug/mL Toxic: Not well Established Pharmacokinetics of levetiracetam are affected by renal function. Adverse effects may include somnolence, weakness, headache and vomiting. Performed by [facility], [address] [place], [place] [id number] [email or web address], Chetan Joe MD - Lab. Director Specimen Performing Laboratory Serum [facility] [address] [place] [address] * Bedside glucose (05/31/2017 6:15 PM) Component Value Ref Range POC glucose 122 Specimen Performing Laboratory Blood * CT Head Wo Contrast (05/31/2017 12:09 PM) Specimen Performing Laboratory [facility] [address] [place] [address] Narrative EXAMINATION:CT HEAD WO CONTRAST CLINICAL HISTORY:altered mental status COMPARISON:CT head 01/21/2015 TECHNIQUE: Noncontrast head CT performed using radiation dose reduction techniques.Technical factors are evaluated and adjusted to ensure appropriate moderation of exposure.Automated dose management technology is applied to adjust radiation exposure while achieving a diagnostic quality image. FINDINGS: No evidence of acute intracranial hemorrhage, mass, mass effect, midline shift, or acute infarct.Mild diffuse cerebral volume loss with proportionate prominence of the ventricles. Mild to moderate chronic microvascular ischemic change.Aasal cisterns are clear. Calvarium is intact. Status post right lens extraction. Large mastoid effusions. IMPRESSION: 1. No CT evidence of acute intracranial abnormality. [facility]-[id number] Procedure Note [facility], Radiology Results Incoming - 05/31/2017 12:16 PM HEARINGS REPORTER EXAMINATION: CT HEAD WO CONTRAST CLINICAL HISTORY: altered mental status COMPARISON: CT head 01/21/2015 TECHNIQUE: Noncontrast head CT performed using radiation dose reduction techniques. Technical factors are evaluated and adjusted to ensure appropriate moderation of exposure. Automated dose management technology is applied to adjust radiation exposure while achieving a diagnostic quality image. FINDINGS: No evidence of acute intracranial hemorrhage, mass, mass effect, midline shift, or acute infarct. Mild diffuse cerebral volume loss with proportionate prominence of the ventricles. Mild to moderate chronic microvascular ischemic change. Aasal cisterns are clear. Calvarium is intact. Status post right lens extraction. Large mastoid effusions. IMPRESSION: 1. No CT evidence of acute intracranial abnormality. [facility]-[id number] after 08/19/2016 Insurance Payer Benefit Subscriber ID Type Phone Address Plan / Group AETNA MEDICARE AETNA xxxxxxxx HMO MEDICARE HMO/PPO [facility]
--- OUTSIDE RECORDS SUMMARY | 2017-08-20 10:14 | XMS REPORT ---
Author Author [facility] Address Unknown Phone Unavailable Care Team Providers Care Environmental Sampler Name Role Phone ZIA FAM Unavailable Unavailable ERVIN JHON Unavailable Unavailable Problems This patient has no known problems. Allergies, Adverse Reactions, Alerts This patient has no known allergies or adverse reactions. Medications This patient has no known medications. Results Test Description Test Time Test Comments Text Results Atomic Results Result Comments TISSUE EXAM 2017-01-13 14:40:00 Surgical Pathology Report Case: [id number] Authorizing Provider: Bryon Phillip MD Collected: 01/12/2017 1429 Ordering Location: [address] Received: 2016 1552 Service Pathologist: Chloe Grider MD Specimens: A) - Rectum, rectal bx B) - Polyp, Colon - Left/Descending, descending colon poylp C) - Polyp, Colon - Right/ Ascending, ascending colon polyp A. RECTUM, BIOPSY: - TUBULAR ADENOMA - NEGATIVE FOR HIGH-GRADE DYSPLASIA AND MALIGNANCYB. COLON, LEFT DESCENDING POLYP, BIOPSY: - TUBULAR ADENOMA - NEGATIVE FOR HIGH-GRADE DYSPLASIA AND MALIGNANCY - C. COLON, RIGHT ASCENDING POLYP, BIOPSY: - TUBULAR ADENOMA - NEGATIVE FOR HIGH-GRADE DYSPLASIA AND MALIGNANCY Signing Pathologist Direct Phone Line: [phone] signed by Chloe Grider MD on 01/13/2017 at 2:40 [id number] [id number] of colon polypA. Rectal biopsy; B. Descending colon polyp; C. Ascending colon polypSpecimen A: Received in formalin labeled "rectum" is a single fragment measuring 0.5 cm in greatest dimension. Entirely submitted A1. Specimen B. Received in formalin labeled "polyp, colon, left/descending", description "ascending colon polyp" is a single fragment measuring 0.4 cm in greatest dimension. Entirely submitted B1. Specimen C: Received in formalin labeled "polyp, colon, right/ascending", description "ascending colon polyp" is a single fragment measuring 0.3 cm in greatest dimension. Entirely submitted C1. DB/hSiraz-C: Performed. POCT-GLUCOSE METER 2017-01-12 11:59:00 POC-GLUCOSE METER (BEAKER) (test ftnz=8326) 206 mg/dL 70-[address] [facility] [address] [facility] [address] POCT-GLUCOSE [id number] 06:17:00* Test Item Value Reference Range Comments POC-GLUCOSE METER (BEAKER) (test mqxl=2568) 173 mg/dL 70-[address] [facility] [address] [facility] [address] BASIC METABOLIC [id number] 06:17:00* Test Item Value Reference Range Comments SODIUM (BEAKER) (test dkqs=930) 138 meq/L 136-145 POTASSIUM (BEAKER) (test jqgk=286) 4.0 meq/L 3.5-5.1 CHLORIDE (BEAKER) (test qxxn=408) 104 meq/L 98-107 CO2 (BEAKER) (test ajfn=972) 24 meq/L 22-29 BLOOD UREA NITROGEN (BEAKER) (test onqt=671) 30 mg/dL 7-21 CREATININE (BEAKER) (test byzd=012) 1.81 mg/dL 0.57-1.25 GLUCOSE RANDOM (BEAKER) (test duxj=706) 131 mg/dL 70-105 CALCIUM (BEAKER) (test cydz=074) 8.6 mg/dL 8.4-10.2 EGFR (BEAKER) (test htqr=0403) 28 mL/min/1.73 sq m ESTIMATED GFR IS NOT ACCURATE CREATININE CLEARANCE IN PREDICTING GLOMERULAR FILTRATION RATE. ESTIMATED GFR IS NOT APPLICABLE FOR DIALYSIS PATIENTS. HEPATIC FUNCTION [id number] 06:17:00* Test Item Value Reference Range Comments TOTAL PROTEIN (BEAKER) (test fgnj=614) 6.1 gm/dL 6.0-8.3 ALBUMIN (BEAKER) (test zzxr=2201) 3.1 g/dL 3.5-5.0 BILIRUBIN TOTAL (BEAKER) (test gczw=869) < mg/dL 0.2-1.2 BILIRUBIN DIRECT (BEAKER) (test sixz=044) 0.1 mg/dL 0.1-0.5 ALKALINE PHOSPHATASE (BEAKER) (test ujcp=808) 44 U/L 40-150 AST (SGOT) (BEAKER) (test prgq=377) 10 U/L 5-34 ALT (SGPT) (BEAKER) (test dsaq=625) < U/L 6-55 PROTHROMBIN [id number] 05:30:00* Test Item Value Reference Range Comments PROTIME (BEAKER) (test mnqv=973) 12.8 seconds 11.7-14.7 INR (BEAKER) (test npyr=035) 1.0 <=5.9 RECOMMENDED COUMADIN/WARFARIN INR THERAPY RANGESSTANDARD DOSE: 2.0 - 3.0 Includes: PROPHYLAXIS for venous thrombosis, systemic embolization; TREATMENT for venous thrombosis and/or pulmonary embolus.HIGH RISK: Target INR is 2.5-3.5 for patients with mechanical heart valves.CBC W/PLT COUNT & AUTO [id number] 05:24:00* Test Item Value Reference Range Comments WHITE BLOOD CELL COUNT (BEAKER) (test tuwr=231) 5.2 K/ L 3.5-10.5 RED BLOOD CELL COUNT (BEAKER) (test ylvt=990) 2.63 M/ L 3.93-5.22 HEMOGLOBIN (BEAKER) (test xwce=368) 8.2 GM/DL 11.2-15.7 HEMATOCRIT (BEAKER) (test nhxf=630) 25.5 % 34.1-44.9 MEAN CORPUSCULAR VOLUME (BEAKER) (test rzyq=675) 97.0 fL 79.4-94.8 MEAN CORPUSCULAR HEMOGLOBIN (BEAKER) (test zukw=456) 31.2 pg 25.6-32.2 MEAN CORPUSCULAR HEMOGLOBIN CONC (BEAKER) (test bvut=842) 32.2 GM/DL 32.2- 35.5 RED CELL DISTRIBUTION WIDTH (BEAKER) (test phab=253) 14.1 % 11.7-14.4 PLATELET COUNT (BEAKER) (test rdlo=490) 179 K/CU MM 150-450 MEAN PLATELET VOLUME (BEAKER) (test teni=975) 11.3 fL 9.4-12.3 NUCLEATED RED BLOOD CELLS (BEAKER) (test vcla=009) 0 /100 WBC 0-0 NEUTROPHILS RELATIVE PERCENT (BEAKER) (test xybn=030) 58 % LYMPHOCYTES RELATIVE PERCENT (BEAKER) (test fgiq=364) 28 % MONOCYTES RELATIVE PERCENT (BEAKER) (test mptp=791) 7 % EOSINOPHILS RELATIVE PERCENT (BEAKER) (test bbym=000) 4 % BASOPHILS RELATIVE PERCENT (BEAKER) (test raaa=629) 1 % NEUTROPHILS ABSOLUTE COUNT (BEAKER) (test vuwb=727) 3.02 K/ L 1.56-6.13 LYMPHOCYTES ABSOLUTE COUNT (BEAKER) (test llvm=297) 1.45 K/ L 1.18-3.74 MONOCYTES ABSOLUTE COUNT (BEAKER) (test qral=372) 0.35 K/ L 0.24-0.36 EOSINOPHILS ABSOLUTE COUNT (BEAKER) (test fdff=474) 0.23 K/ L 0.04-0.36 BASOPHILS ABSOLUTE COUNT (BEAKER) (test sazl=485) 0.04 K/ L 0.01-0.08 IMMATURE GRANULOCYTES-RELATIVE PERCENT (BEAKER) (test urpc=3488) 3 % 0-1 POCT-GLUCOSE [id number] 23:01:00* Test Item Value Reference Range Comments POC-GLUCOSE METER (BEAKER) (test xbjw=6574) 301 mg/dL 70-110 [address]ED AT [address] [address] POCT-GLUCOSE [id number] 20:21:00* Test Item Value Reference Range Comments POC-GLUCOSE METER (BEAKER) (test ekqw=2324) 407 mg/dL 70-110 Patient on insulin Drip/TESTED AT [address] [address] MAMMOGRAPHY DIGITAL SCR [facility] [address] [place] [address] Patient Name: LYLE GLASER MR #: [id number] : 1945 Age/Sex: 71/F Req #: [id number] Adm Physician: Ordered by: ZIA FAM MD Report #: [id number] Location: [facility] Room/Bed: Procedure: [id number] MG/MAMMOGRAPHY DIGITAL SCR BILAT Exam Date: 02/23/17 Exam Time: 0900 REPORT STATUS: Signed # [id number] - [id number] #BILATERAL DIGITAL SCREENING MAMMOGRAM WITH CAD: 02/23 CLINICAL: Routine screening. Comparison is made to exam dated: mammogram - [facility]. Current study contains 4 films. There are scattered fibroglandular elements in both breasts. Current study was also evaluated with a Computer Aided Detection ( CAD) system. There are benign vascular calcifications and scattered benign calcifications in both breasts. No significant masses, calcifications, or other findings are seen in either breast. There has been no significant interval change. IMPRESSION: BENIGN There is no mammographic evidence of malignancy. A 1 year screening mammogram is recommended. The patient will be notified by letter of the results. Gloria Serrato Jr., D.O. cw/:03/08/2017 13:53:11 Merchandise Presentation Associate: Alma MORENO(Ramya)(Jen) , [facility] letter sent: Compared to Prior B9 Mammogram BI-RADS: 2 Benign Dictated By: GLORIA SERRATO DO 1372 Transcribed By: MUSHTAQ on 3636 COPY TO: ZIA FAM MD
[2017-08-20] MEDS ORDERED: ASPIRIN 81 MG CHEW TAB PO ONE (10:45)
--- NOTE | 2017-08-20 11:44 | Diagnostic Imaging Report ---
PROCEDURE: A single AP view of the chest. COMPARISON: Chest 2 views 11/30/2014. INDICATIONS: SWELLING IN ARM AND LEGS FINDINGS: Lines/tubes: None. Lungs: Bilateral perihilar opacifications. No parenchymal mass. Pleura: Small left pleural effusion. No pneumothorax. Heart and mediastinum: The heart and the mediastinum are unremarkable. Bones: No acute bony abnormality. Degenerative changes of the thoracic spine. IMPRESSION: Bilateral perihilar opacifications may represent pulmonary edema. Small left pleural effusion. Dictated by: Jules Salinas M.D. on 08/20/2017 at 11:44 Electronically approved by: Jules Salinas M.D. on 08/20/2017 at 11:44
[2017-08-20 12:16] LABS: BASOPHILS # (AUTO) 0.1 (0.0-0.1); BASOPHILS % 0.8 % (0.0-1.0); EOSINOPHILS # (AUTO) 0.2 (0.0-0.4); EOSINOPHILS % 1.7 % (0.0-6.0); LYMPHOCYTES # (AUTO) 1.3 (1.0-3.2); LYMPHOCYTES % 14.4 % (18.0-39.1); MEAN CORPUSCULAR HEMOGLOBIN 29.4 pg (28-32); MEAN CORPUSCULAR HGB CONC 32.3 g/dL (31-35); MEAN CORPUSCULAR VOLUME 91.2 fL (81-99); MONOCYTES # (AUTO) 0.5 (0.2-0.8); MONOCYTES % 5.2 % (4.4-11.3); NEUTROPHILS # (AUTO) 6.6 (2.1-6.9); NEUTROPHILS % 76.5 % (38.7-80.0); PLATELET COUNT 161 x10e3/uL (140-360); RED CELL DISTRIBUTION WIDTH 15.4 % (11.7-14.4)
[2017-08-20 12:26] LABS: INR 1.05; PARTIAL THROMBOPLASTIN TIME 26.2 seconds (23.8-35.5); PROTHROMBIN TIME 12.9 seconds (11.9-14.5)
[2017-08-20 12:47] LABS: ALBUMIN 2.2 g/dL (3.5-5.0); ALBUMIN/GLOBULIN RATIO 0.7 (0.8-2.0); ALKALINE PHOSPHATASE 36 IU/L (40-150); ANION GAP 11.5 mmol/L (8-16); BLOOD UREA NITROGEN 35 mg/dL (7-26); BUN/CREATININE RATIO 17 (6-25); CALCIUM 8.1 mg/dL (8.4-10.2); CARBON DIOXIDE 26 mmol/L (22-29); CHLORIDE 106 mmol/L (98-107); CREATINE KINASE 23 IU/L (29-168); CREATININE, SERUM 2.06 mg/dL (0.57-1.11); EST GLOMERULAR FILTRATION RATE 24 ML/MIN (60-); GLUCOSE 203 mg/dL (74-118); MAGNESIUM 1.3 MG/DL (1.3-2.1); POTASSIUM 4.5 mmol/L (3.5-5.1); SODIUM 139 mmol/L (136-145)
[2017-08-20 12:51] LABS: ALANINE AMINOTRANSFERASE < 6 IU/L (0-55)
[2017-08-20 14:15] LABS: BILIRUBIN,URINE NEGATIVE (NEGATIVE); CLARITY,URINE CLOUDY (CLEAR); COLOR,URINE YELLOW (YELLOW); KETONES,URINE NEGATIVE (NEGATIVE); LEUKOCYTE ESTERASE ,URINE NEGATIVE (NEGATIVE); NITRITE,URINE NEGATIVE (NEGATIVE); PROTEIN,URINE DIPSTICK 3+ (NEGATIVE); URINE UROBILINOGEN 0.2 mg/dL (0.2 - 1)
[2017-08-20 14:30] LABS: AMORPHOUS SEDIMENT,URINE MODERATE (FEW); EPITHELIAL CELLS,URINE RARE /LPF; WBC,URINE (MAN) 0-5 /HPF (0-5)
--- OUTSIDE RECORDS SUMMARY | 2017-08-20 15:36 | XMS REPORT | Clinical Summary ---
Author Author [facility] [facility] Address Unknown Phone Unavailable Care Team Providers Care Loom Repairer Name Role Phone Anuja Palacios MD PCP [...] Quality Angelica Ibrahim, PEGGY Outreach 08/13/2017 Documentation Diagnostics Tech Tom Saldivar RN 08/06/2017 [facility] General Internal Medicine Wyatt Barriga MD Pneumonia due to - Encounter Avinash Zaragoza MD infectious organism, 08/13/2017 unspecified laterality, unspecified part of lung (Primary Dx); COPD exacerbation; Shortness of breath; Weakness; Chronic kidney disease, unspecified CKD stage 05/31/2017 [facility] General Internal Medicine Dana Causey [...] 103 kg (226 lb) 08/06/2017 8:02 PM PORTRAIT ARTIST Height 162.6 cm (5' 4") 08/06/2017 8:02 PM PORTRAIT ARTIST Body Mass Index 38.79 08/06/2017 8:02 PM PORTRAIT ARTIST Plan of Treatment Health Maintenance Due Date Last Done Comments FOOT EXAM 08/29/1955 OPHTHALMOLOGY EXAM 08/29/1955 COLONOSCOPY 08/29/1995 MAMMOGRAM 08/29/1995 ZOSTER VACCINE 2005 PNEUMOCOCCAL 2010 POLYSACCHARIDE VACCINE AGE 65 AND OVER INFLUENZA VACCINE 12/30/2016 PNEUMOCOCCAL-13 Completed 08/08/2017 Procedures Procedure Name Priority Date/Time Associated Diagnosis Comments ECHOCARDIOGRAM 2D Routine 08/07/2017 Results for this COMPLETE W MMODE SPECTRAL 10:52 AM PORTRAIT ARTIST procedure are in the COLOR DOPPLER (41422) results section. after 08/19/2016 Results * POC glucose (08/13/2017 11:46 AM) Only the most recent of 33 results within the time period is included. Component Value Ref Range POC glucose 261 (H) 65 - 100 mg/dL Comment: Meter ID: [id number] Psychiatric Aides Teacher: Christiane Fischer Specimen Performing Laboratory [facility] DEPARTMENT OF PATHOLOGY AND GENOMIC MEDICINE [address] [place] [address] * Surgical pathology request (08/12/2017 12:03 PM) Component Value Ref Range Surgical pathology report See link below for PDF Lab Report Result status This is Final Report to [id number] Specimen Performing Laboratory [facility] DEPARTMENT OF PATHOLOGY AND GENOMIC MEDICINE [address] [place] [address] * CT Bone Marrow Bx W Asp Same Site (08/12/2017 9:38 AM) Specimen Performing Laboratory [facility] [address] [place] [address] BONE MARROW BX W ASP [...] monitored by a registered nurse.The physician intraservice [id number] time with the patient was 28 minutes. COMPLICATIONS: NONE IMPRESSION: 1. Status post CT-guided bone marrow biopsy 2. Conscious sedation was given as described above. Procedure Note [facility], Radiology Results Incoming - 08/12/2017 3:40 PM [...] by a registered nurse. The physician intraservice ohom-uh-ioof time with the patient was 28 minutes. COMPLICATIONS: NONE IMPRESSION: 1. Status post CT-guided bone marrow biopsy 2. Conscious sedation was given as described above. * Flow cytometry evaluation (08/12/2017 9:15 AM) Component Value Ref Range Flow cytometry evaluation See link below for PDF Lab Report Specimen Performing Laboratory [facility] DEPARTMENT OF PATHOLOGY AND GENOMIC MEDICINE [address] [place] [address] * Estimated GFR (08/12/2017 5:48 AM) Only [...] and Americans. Specimen Performing Laboratory Plasma specimen [facility] DEPARTMENT OF PATHOLOGY AND GENOMIC MEDICINE [address] [place] [address] * Manual differential (08/12/2017 5:48 AM) Only [...] rare Enlarged platelets rare Specimen Performing Laboratory [facility] DEPARTMENT OF PATHOLOGY AND GENOMIC MEDICINE [address] [place] [address] * Partial thromboplastin time, activated (08/12/2017 5:48 [...] validate this result. Specimen Performing Laboratory Blood [facility] DEPARTMENT OF PATHOLOGY AND GENOMIC MEDICINE [address] [place] [address] * Prothrombin time with INR (08/12/2017 5:48 [...] values over 4.0. Specimen Performing Laboratory Blood [facility] DEPARTMENT OF PATHOLOGY AND GENOMIC MEDICINE [address] [place] [address] * CBC with platelet and differential (08/12/2017 [...] 06:08 by I/AUT Specimen Performing Laboratory Blood [facility] DEPARTMENT OF PATHOLOGY AND GENOMIC MEDICINE [address] [place] [address] * Comprehensive metabolic panel (08/12/2017 5:48 AM) [...] 1.2 mg/dL Specimen Performing Laboratory Plasma specimen [facility] DEPARTMENT OF PATHOLOGY AND GENOMIC MEDICINE [address] [place] [address] * Haptoglobin (08/10/2017 8:18 PM) Component Value Ref Range Haptoglobin 44 30 - 200 mg/dL Specimen Performing Laboratory Plasma specimen [facility] DEPARTMENT OF PATHOLOGY AND GENOMIC MEDICINE [address] [place] [address] * Folate RBC (group test) (08/10/2017 8:18 PM) Component Value Ref Range RBC folate 1,452 499 - 1,504 ng/mL Specimen Performing Laboratory Blood [facility] DEPARTMENT OF PATHOLOGY AND GENOMIC MEDICINE [address] [place] [address] * Transfuse RBC (08/10/2017 5:00 PM) Only the most recent of 2 results within the time period is included. * Total iron binding capacity (08/10/2017 12:54 PM) Component Value Ref Range Iron level 112 76 - 198 ug/dL Iron binding capacity 196 (L) 271 - 474 ug/dL % Saturation 57.1 (H) 15.0 - 38.0 % Specimen Performing Laboratory Plasma specimen [facility] DEPARTMENT OF PATHOLOGY AND GENOMIC MEDICINE [address] [facility] [place] [address] * Folate level (08/10/2017 12:54 PM) Component Value Ref Range Folate 23.5 (H) 3.4 - 20.0 ng/mL Specimen Performing Laboratory Serum [facility] DEPARTMENT OF PATHOLOGY AND GENOMIC MEDICINE [address] [facility] [place] [address] * Ferritin level (08/10/2017 12:54 PM) Component Value Ref Range Ferritin level 300 (H) 10 - 125 ng/mL Specimen Performing Laboratory Serum [facility] DEPARTMENT OF PATHOLOGY AND GENOMIC MEDICINE [address] [place] [address] [place] [address] * Vitamin B12 level (08/10/2017 12:54 PM) Component Value Ref Range Vitamin B12 1,031 (H) 231 - 931 pg/mL Comment: Significant overlap exists between normal and deficiency states. However, most patients with deficiencies will have Serum B12 <200 pg/mL. Specimen Performing Laboratory Serum [facility] DEPARTMENT OF PATHOLOGY AND [facility] MEDICINE [address] [place] [address] [place] [address] * Direct Erin' (RADHA) (08/10/2017 7:30 AM) Component Value Ref Range Itst-OoM-C3s Polyspecific NEG IgG Erin NEG Specimen Performing Laboratory [facility] DEPARTMENT OF PATHOLOGY AND [facility] MEDICINE [address] [place] [address] [place] [address] * Prepare RBC, 2 Units (08/10/2017 7:30 AM) Component Value Ref Range Product name Red Blood Cells -1, Leukored Unit number [id number] Product code [id number] Dispense status Transfused Blood expiration date Blood type code 0600 Blood type A NEGATIVE Product name Red Blood Cells -1, Leukored Unit number [id number] Product code [id number] Dispense status Transfused Blood expiration date Blood type code 0600 Blood type A NEGATIVE Specimen Performing Laboratory [facility] DEPARTMENT PATHOLOGY AND [facility] MEDICINE [address] [place] [address] [place] [address] * Type and screen (08/10/2017 7:30 AM) Only the most recent of 2 results within the time period is included. Component Value Ref Range ABO grouping A Rh type NEG Antibody screen (gel) NEG Specimen Performing Laboratory Blood [facility] DEPARTMENT OF PATHOLOGY AND GENOMIC MEDICINE [address] [place] [address] * Reticulocyte count (08/10/2017 6:15 AM) Component Value Ref Range Retic %, auto 3.0 % Retic absolute, auto 0.0631 0.0210 - 0.1155 m/uL Specimen Performing Laboratory Blood [facility] DEPARTMENT OF PATHOLOGY AND GENOMIC MEDICINE [address] [place] [address] * Basic metabolic panel (08/10/2017 6:15 AM) [...] 10.7 mg/dL Specimen Performing Laboratory Plasma specimen [facility] DEPARTMENT OF PATHOLOGY AND GENOMIC MEDICINE [facility] [place] [address] * Hemoglobin & hematocrit (08/09/2017 5:35 AM) Only the most recent of 2 results within the time period is included. Component Value Ref Range HGB 7.1 (L)Comment: called to nurse Hien Barnes on 11.5 - 15.3 g/dL 2west at 07:34 on 08/09/2017 rmr HCT 22.0 (L) 34.0 - 45.0 % Specimen Performing Laboratory [facility] DEPARTMENT OF PATHOLOGY AND GENOMIC MEDICINE [facility] [place] [address] * Magnesium level (08/09/2017 5:35 AM) Only the most recent of 2 results within the time period is included. Component Value Ref Range Magnesium 1.30 (L) 1.60 - 2.40 mg/dL Specimen Performing Laboratory Plasma specimen [facility] DEPARTMENT OF PATHOLOGY AND GENOMIC MEDICINE [facility] [place] [address] * Smear review (08/08/2017 5:20 AM) Component Value Ref Range Platelet slide review Tressa adequate Polychromasia few Basophilic stippling Occasional Schistocytes rare Spherocytes few Ovalocytes occasional Enlarged platelets few Giant platelets few Elliptocytes few Specimen Performing Laboratory [facility] DEPARTMENT OF PATHOLOGY AND GENOMIC MEDICINE [address] [place] [address] * T3, free (08/08/2017 5:20 AM) Component Value Ref Range T3, free 1.24 (L) 2.18 - 3.98 pmol/L Specimen Performing Laboratory Plasma specimen [facility] DEPARTMENT OF PATHOLOGY AND GENOMIC MEDICINE [address] [place] [address] * Thyroid stimulating hormone (08/08/2017 5:20 AM) Component Value Ref Range TSH 4.20 0.38 - 4.82 uIU/mL Specimen Performing Laboratory Plasma specimen [facility] DEPARTMENT OF PATHOLOGY AND GENOMIC MEDICINE [address] [place] [address] * T4, free (08/08/2017 5:20 AM) Component Value Ref Range T4, free 0.66 (L) 0.70 - 1.61 ng/dL Specimen Performing Laboratory Plasma specimen [facility] DEPARTMENT OF PATHOLOGY AND GENOMIC MEDICINE [address] [place] [address] * Phosphorus level (08/08/2017 5:20 AM) Component Value Ref Range Phosphorus 4.5 2.5 - 4.5 mg/dL Specimen Performing Laboratory Plasma specimen [facility] DEPARTMENT OF PATHOLOGY AND GENOMIC MEDICINE [address] [place] [address] * US Renal (08/07/2017 10:25 PM) Specimen Performing Laboratory [facility] [address] [place] [address] Narrative EXAMINATION:US RENAL CLINICAL HISTORY:Elevated abnormal renal [...] overlying bowel gas and cannot be evaluated. [facility]-[id number] Procedure Note [facility], Radiology Results Incoming - 08/07/2017 10:37 PM PORTRAIT ARTIST EXAMINATION: US RENAL CLINICAL HISTORY: Elevated abnormal [...] overlying bowel gas and cannot be evaluated. [facility]-[id number] * Urinalysis screen and microscopy, with reflex [...] None seen UA Specimen Performing Laboratory Urine [facility] DEPARTMENT OF PATHOLOGY AND GENOMIC MEDICINE [address] [place] [address] * Sodium level, urine, random (08/07/2017 8:45 PM) Component Value Ref Range Sodium, urine, random 52 (A) mEQ/L Specimen Performing Laboratory Urine - Urine, clean [facility] DEPARTMENT OF PATHOLOGY AND GENOMIC MEDICINE catch [address] [place] [address] * Creatinine level, urine, random (08/07/2017 8:45 PM) Component Value Ref Range Creatinine, urine, random 53 mg/dL Specimen Performing Laboratory Urine - Urine, clean [facility] DEPARTMENT OF PATHOLOGY AND GENOMIC MEDICINE catch [address] [place] [address] * Gram stain (08/07/2017 7:45 PM) Only the most recent of 2 results within the time period is included. Component Value Ref Range Gram stain result Rare WBC's Rare Gram positive cocci in pairs Comment: Specimen Information Specimen Source: Urine Specimen Site: Clean catch Specimen Performing Laboratory Urine [facility] DEPARTMENT OF PATHOLOGY AND GENOMIC MEDICINE [address] [place] [address] * Urine culture (08/07/2017 7:45 PM) Only the most recent of 2 results within the time period is included. Component Value Ref Range Urine culture isolate Enterococcus faecalis colony count undetermined, probably due to inhibiting substance. The performance characteristics of this assay on this isolate were validated by the Microbiology Laboratory at [facility]. This source has not been approved by [...] were validated by the Microbiology Laboratory at [facility]. This source has not been approved by [...] Site: Clean catch Specimen Performing Laboratory Urine [facility] DEPARTMENT OF PATHOLOGY AND GENOMIC MEDICINE [address] [place] [address] Organism Antibiotic Method Susceptibility Enterococcus faecalis Ampicillin CINDY 2 mcg/mL: Susceptible Enterococcus faecalis Nitrofurantoin CINDY <=16 mcg/mL: Susceptible Enterococcus faecalis Levofloxacin CIDNY <=1 mcg/mL: Susceptible Enterococcus faecalis Linezolid CINDY [...] METS R1 5.35 Specimen Performing Laboratory [facility] [address] [place] [address] Narrative Left atrium size is mildly dilated. [id number] mitral valve regurgitation The left ventricle chamber [...] indicated. (A DA94) Specimen Performing Laboratory Blood [facility] DEPARTMENT OF PATHOLOGY AND GENOMIC MEDICINE [address] [place] [address] [place] [address] * Lactic acid level, SEPSIS - Now and repeat 2x every 3 hours (08/06/2017 4:57 PM) Component Value Ref Range Lactic acid 1.9 0.5 - 2.2 mmol/L Specimen Performing Laboratory Blood [facility] DEPARTMENT OF PATHOLOGY AND GENOMIC MEDICINE [address] [place] [address] [place] [address] * Troponin (08/06/2017 4:57 PM) Only the [...] myocardial injury. Specimen Performing Laboratory Plasma specimen [facility] DEPARTMENT OF PATHOLOGY AND GENOMIC MEDICINE [address] [facility] [place] [address] * IR Non-Tunneled Central Line Placement (08/06/2017 3:51 PM) Specimen Performing Laboratory [facility] [address] [place] [address] Narrative Examination:IR NON-TUNNELED CENTRAL LINE PLACEMENT Clinical [...] to the adjacent skin. Catheter size: 7 Malaysian. Length: 16 cm. Estimated blood loss:Less than 2 cc. Complications:None. Specimens removed:None. Assistants:None. IMPRESSION:A 7 Malaysian, 16 cm in length, triple lumen, nontunneled central venous catheter was placed via the right internal jugular vein using image guidance and without incident as described above.The catheter is ready for routine use. Thank you for allowing us to participate in the care of your patient. [facility]-[id number] Procedure Note Hm Interface, Radiology Results Incoming - 08/06/2017 4:12 PM PORTRAIT ARTIST Examination: IR NON-TUNNELED CENTRAL LINE PLACEMENT Clinical [...] to the adjacent skin. Catheter size: 7 Malaysian. Length: 16 cm. Estimated blood loss: Less than 2 cc. Complications: None. Specimens removed: None. Assistants: None. IMPRESSION: A 7 Malaysian, 16 cm in length, triple lumen, nontunneled central venous catheter was placed via the right internal jugular vein using image guidance and without incident as described above. The catheter is ready for routine use. Thank you for allowing us to participate in the care of your patient. [facility]-[id number] * US Guided Vascular Access (08/06/2017 3:51 PM) Specimen Performing Laboratory [facility] [address] [place] [address] Narrative Examination:IR NON-TUNNELED CENTRAL LINE PLACEMENT Clinical [...] to the adjacent skin. Catheter size: 7 Malaysian. Length: 16 cm. Estimated blood loss:Less than 2 cc. Complications:None. Specimens removed:None. Assistants:None. IMPRESSION:A 7 Malaysian, 16 cm in length, triple lumen, nontunneled central venous catheter was placed via the right internal jugular vein using image guidance and without incident as described above.The catheter is ready for routine use. Thank you for allowing us to participate in the care of your patient. [facility]-[id number] Procedure Note Hm Interface, Radiology Results Incoming - 08/06/2017 4:12 PM PORTRAIT ARTIST Examination: IR NON-TUNNELED CENTRAL LINE PLACEMENT Clinical [...] to the adjacent skin. Catheter size: 7 Malaysian. Length: 16 cm. Estimated blood loss: Less than 2 cc. Complications: None. Specimens removed: None. Assistants: None. IMPRESSION: A 7 Malaysian, 16 cm in length, triple lumen, nontunneled central venous catheter was placed via the right internal jugular vein using image guidance and without incident as described above. The catheter is ready for routine use. Thank you for allowing us to participate in the care of your patient. [facility]-[id number] * Blood culture, aerobic & anaerobic (08/06/2017 1:17 PM) Only the most recent of 2 results within the time period is included. Component Value Ref Range Blood culture isolate No growth after 5 days of incubation. Comment: Specimen Information Specimen Source: Blood Specimen Site: LEFT AC Specimen Performing Laboratory Blood [facility] DEPARTMENT OF PATHOLOGY AND GENOMIC MEDICINE [address] [place] [address] * Respiratory pathogen panel (08/06/2017 1:12 PM) [...] Specimen Site: swab Specimen Performing Laboratory Nasopharyngeal [facility] [place] [address] * Influenza antigen (08/06/2017 1:12 PM) Component Value Ref Range Influenza antigen Negative for Influenza A/B antigen. Comment: Specimen Information Specimen Source: Nares Specimen Site: Right Specimen Performing Laboratory Nares - Right [facility] DEPARTMENT OF PATHOLOGY AND GENOMIC MEDICINE [address] [place] [address] * XR Chest 1 Vw Portable (08/06/2017 12:35 PM) Specimen Performing Laboratory [facility] [address] [place] [address] Narrative EXAMINATION:XR CHEST 1 VW PORTABLE CLINICAL HISTORY:RALES COMPARISON:02/21/2016 IMPRESSION: 1.Small bilateral pleural effusions and hazy basilar opacities, likely subsegmental atelectasis versus possible infiltrate. 2.Normal heart size. 3.No acute osseous abnormality. [facility]-[id number] Procedure Note Interface, Radiology Results Incoming - 08/06/2017 1:03 PM PORTRAIT ARTIST EXAMINATION: XR CHEST 1 VW PORTABLE CLINICAL HISTORY: RALES COMPARISON: 02/21/2016 IMPRESSION: 1. Small bilateral pleural effusions and hazy basilar opacities, likely subsegmental atelectasis versus possible infiltrate. 2. Normal heart size. 3. No acute osseous abnormality. [facility]-[id number] * B natriuretic peptide (08/06/2017 12:13 PM) Component Value Ref Range BNP 226 (H) 0 - 100 pg/mL Specimen Performing Laboratory Blood [facility] DEPARTMENT OF PATHOLOGY AND GENOMIC MEDICINE [address] [place] [address] * Creatine kinase, total (CPK) (08/06/2017 12:13 PM) Component Value Ref Range Creatine kinase 39 (L) 61 - 224 U/L Specimen Performing Laboratory Plasma specimen [facility] DEPARTMENT OF PATHOLOGY AND GENOMIC MEDICINE [address] [place] [address] * Hepatic function panel (08/06/2017 12:13 PM) Component Value Ref Range Albumin 2.0 (L) 3.2 - 5.0 g/dL Total bilirubin 0.3 0.2 - 1.2 mg/dL Bilirubin direct 0.1 0.0 - 0.4 mg/dL Alkaline phosphatase 53 30 - 120 U/L Protein 6.4 6.3 - 8.2 g/dL ALT 10 (L) 30 - 65 U/L AST 15 15 - 37 U/L Specimen Performing Laboratory Plasma specimen [facility] DEPARTMENT OF PATHOLOGY AND GENOMIC MEDICINE [address] [place] [address] * ECG 12 lead (08/06/2017 11:51 AM) Only the most recent of 3 results within the time period is included. Component Value Ref Range Ventricular rate 48 Atrial rate 48 ND interval 128 QRSD interval 78 QT interval 476 QTC interval 425 P axis 1 49 QRS axis 1 36 T wave axis 15 EKG impression Marked sinus bradycardia-Low voltage QRS-Abnormal ECG-In automated comparison with ECG of 01-JUN-2017 16:23,-Vent. rate has decreased BY 25 BPM-Nonspecific T wave abnormality no longer evident in Lateral leads- Specimen Performing Laboratory [facility] [address] [place] [address] * ECG ED Preliminary Interpretation - NOT AN ORDER (08/06/2017 11:35 AM) Quan Barriga MD 08/06/20174:05 PM ECG ED Preliminary Interpretation - Not an Order Performed by: WYATT BARRIGA Authorized by: WYATT BARRIGA ECG reviewed by ED Physician in the absence of a assurance senior manager insurance: yes Interpretation: Interpretation: abnormal Rate: ECG rate:48 [...] somnolence, weakness, headache and vomiting. Performed by [facility], [address] [place], [place] [id number] [email or web address], Chetan Joe MD - Lab. Director Specimen Performing Laboratory Serum [facility] [address] [place] [address] * Bedside glucose (05/31/2017 6:15 PM) Component Value Ref Range POC glucose 122 Specimen Performing Laboratory Blood * CT Head Wo Contrast (05/31/2017 12:09 PM) Specimen Performing Laboratory [facility] [address] [place] [address] Narrative EXAMINATION:CT HEAD WO CONTRAST CLINICAL HISTORY:altered [...] No CT evidence of acute intracranial abnormality. [facility]-[id number] Procedure Note [facility], Radiology Results Incoming - 05/31/2017 12:16 PM PORTRAIT ARTIST EXAMINATION: CT HEAD WO CONTRAST CLINICAL HISTORY: [...] No CT evidence of acute intracranial abnormality. [facility]-[id number] after 08/19/2016 Insurance Payer Benefit Subscriber ID Type Phone Address Plan / Group AET[employer] MEDICARE AETNA xxxxxxxx HMO MEDICARE HMO/PPO [facility]
[2017-08-20] MEDS ORDERED: ONDANSETRON HCL 4 MG ORAL DISINTEGRATING TAB PO ONE (18:45)
[2017-08-20] MEDS: SODIUM CHLORIDE FLUSH 10 ML SYR INJ PRN (18:55)
[2017-08-20] MEDS: FUROSEMIDE INJ 10 MG/ML 4 ML VIAL IV SCH (18:55)
[2017-08-20 21:18] LABS: CREATINE KINASE MB 2.2 ng/mL (0-5.0)
[2017-08-20 21:34] VITALS: BP 130/83
[2017-08-20 22:30] VITALS: BP 169/85
[2017-08-21] VITALS (8 sets, daily range): BP systolic 134–183; BP diastolic 67–89
[2017-08-21] MEDS ORDERED: AMLODIPINE BESY10 MG PO (05:35)
[2017-08-21] MEDS ORDERED: ASPIRIN325 MG PO (05:36)
[2017-08-21] MEDS ORDERED: ARICEPT5 MG PO (05:46)
[2017-08-21] MEDS ORDERED: SERTRALINE HCL50 MG PO (05:52)
[2017-08-21] MEDS ORDERED: FEROSUL325 MG PO (05:55)
[2017-08-21] MEDS ORDERED: VITAMIN B-121000 MCG PO (05:58)
--- NOTE | 2017-08-21 06:25 | Diagnostic Imaging Report ---
EXAM: CHEST SINGLE (PORTABLE), AP 1 view INDICATION: CHF COMPARISON: AP view of the chest August 20, 2017 FINDINGS: LINES/TUBES: None LUNGS: Central vascular congestion and bibasilar atelectasis. PLEURA: Possible trace layering pleural effusions. HEART AND MEDIASTINUM: Normal size and contour. BONES AND SOFT TISSUES: No acute findings. IMPRESSION: Central vascular congestion and bibasilar atelectasis. Signed by: Dr. Rhiannon Will M.D. on 08/21/2017 6:21 AM
[2017-08-21] MEDS: FUROSEMIDE INJ 10 MG/ML 4 ML VIAL IV SCH ×2 (08:59→18:05)
[2017-08-21] MEDS ORDERED: SERTRALINE HCL 50 MG TAB PO PRN (09:30)
--- NOTE | 2017-08-21 09:57 | Consultation ---
DATE OF CONSULTATION: August 20, 2017 REASON FOR CONSULTATION: CHF. HPI: This is a 71-year-old female that presented with shortness of breath. According to the daughter at the bedside, she was having shortness of breath times 1 week after discharge from [facility] where she was treated for CHF. When she got home, she was having worsening of shortness of breath that felt worse at night and difficulty laying flat. She was brought over here for evaluation. She denies any chest pain, any palpitations, any dizziness, or diaphoresis. Her troponin was negative. EKG showed normal sinus rhythm with no S/T abnormalities. BNP was 267. Chest x-ray showed central vascular congestion. PAST MEDICAL HISTORY: CHF, diastolic, arthritis, asthma, chronic back pain, cirrhosis of the liver, diabetes, diverticulitis, hypertension, hep C, hemorrhoids, CVA, CKD, and TB in the past. PAST SURGICAL HISTORY: Bladder surgery, hysterectomy and neck surgery. SOCIAL HISTORY: She lives at home with the family. No smoking. No drinking. MEDICATIONS: See med list. ALLERGIES: SHE IS NOT ALLERGIC TO ANY MEDICATIONS. REVIEW OF SYSTEMS: Negative except as mentioned above. She is positive for shortness of breath. PHYSICAL EXAMINATION VITAL SIGNS: Temperature 97, heart rate 72, blood pressure 157/67, respirations 20, oxygen saturation 97% on room air. GENERAL: She is awake, alert and oriented times 3. HEENT: Mucous membranes moist. NECK: Supple. LUNGS: Bilateral decreased breath sounds. CARDIOVASCULAR: S1 and S2 present. ABDOMEN: Soft. NEUROLOGICAL; Intact. EXTREMITIES: With no edema. LABS: Sodium 139, potassium 4.5, chloride 106, CO2 26, BUN 35, creatinine 2.06, glucose 203. White blood cells 8.67, hemoglobin 10, hematocrit 31, and platelets 161,000. PT 12.9, PTT 26.2, and INR 1.05. IMPRESSION 1. Acute exacerbation of congestive heart failure. 2. Renal insufficiency. 3. Hypotension. 4. Diabetes. ASSESSMENT AND PLAN: Obtain an echocardiogram to reassess the left ventricular and the valve function. Due to the shortness of breath, will go ahead and get a V/Q scan to rule out any pulmonary embolism. Will continue diuretics and beta re. Put her on a low salt diet and fluid restriction. Further cardiac workup pending clinical course. Thank you for this consultation. DICTATED BY LEI ESPINOZA NP Job#: [id number] REBEKA
--- NOTE | 2017-08-21 10:12 | History and Physical ---
She is a 71-year-old female patient of mine presented to the emergency room with the complaint of shortness of breath. The patient was recently discharged from [facility] with possible pneumonia, CHF. On discharge, the patient was given 20 mg of Lasix. The patient's daughter stated that the patient was having severe oozing from all over the body. She was having shortness of breath. The patient was not drinking any fluids. The patient was seen in the clinic earlier yesterday. The patient was advised to increase the diuretics. The patient's daughter stated that she cannot wait, and she just brought the patient to the emergency room. In the emergency room, the ER doctor admitted the patient. The patient has a history of CHF, COPD, chronic renal disease, diabetes mellitus, hypertension, morbid obesity, previous stroke. ALLERGIES: NO KNOWN DRUG ALLERGIES. PAST MEDICAL HISTORY: Diabetes mellitus, hypertension, hepatitis C, hemorrhoids, melanoma, CVA, stage 4 renal disease, arthritis, asthma, cirrhosis of liver, cervical cancer. PAST SURGICAL HISTORY: Back surgery, bladder surgery, hysterectomy, neck surgery, chronic pain from that. REVIEW OF SYSTEMS: Shortness of breath, oozing and skin excoriation. PHYSICAL EXAMINATION VITALS: Temperature 98, pulse , blood pressure 160/73. HEENT: Normocephalic and atraumatic. No JVD. LUNGS: Bilateral fair air entry. No rales. No rhonchi. HEART: S1 and S2 regular. Systolic murmur present. ABDOMEN: Soft. Bowel sounds present. EXTREMITIES: No clubbing, cyanosis or edema. SKIN: Excoriations. ADMITTING IMPRESSION/DIAGNOSES 1. Decompensated mild diastolic and systolic congestive heart failure. 2. Chronic renal failure. 3. Chronic kidney disease, 4. 4. Diabetes mellitus with renal failure and peripheral vascular disease. 5. Coronary artery disease. 6. Previous history of cerebrovascular accident. 7. Small pleural effusion. 8. Generalized anasarca. 9. History of cervical cancer. PLAN: The patient will be admitted with the above diagnoses. The patient is getting a V/Q scan to rule out possibility of PE. The patient is getting IV diuretic, Lasix. The patient will be admitted in the observation unit. Further course as per the diuretics. Job#: [id number] [place]
[2017-08-21] MEDS ORDERED: NYSTATIN 15 GM POWDER UD BTL TOP PRN (10:45)
[2017-08-21] MEDS: SERTRALINE HCL 50 MG TAB PO SCH (11:11)
[2017-08-21] MEDS: PANTOPRAZOLE SOD 40 MG TABEC PO SCH (11:11)
[2017-08-21] MEDS: FERROUS SULFATE 325 MG TAB PO SCH (11:11)
[2017-08-21] MEDS: ASPIRIN 81 MG ENTERIC COATED PO SCH (11:11)
[2017-08-21] MEDS ORDERED: METOPROLOL SUCCINATE 25 MG TAB XL PO NR (11:30)
[2017-08-21] MEDS ORDERED: HYDRALAZINE HCL 25 MG TAB PO NR (11:30)
[2017-08-21] MEDS: ACETAMINOPHEN/CODEINE 300MG - 30MG TAB PO SCH ×3 (13:00→21:00)
[2017-08-21] MEDS ORDERED: GABAPENTIN 100 MG CAP PO SCH (15:00)
[2017-08-21] MEDS: METOPROLOL SUCCINATE 25 MG TAB XL PO SCH (16:21)
[2017-08-21] MEDS: HYDRALAZINE HCL 25 MG TAB PO SCH (16:21)
[2017-08-21] MEDS: GABAPENTIN 300 MG CAP PO SCH ×2 (16:21→21:26)
[2017-08-21] MEDS: TIZANIDINE HCL 4 MG TAB PO SCH (16:22)
[2017-08-21] MEDS ORDERED: FUROSEMIDE 20 MG TAB PO ONE (17:00)
[2017-08-21] MEDS ORDERED: METOPROLOL SUCCINATE 50 MG TAB XL PO SCH (17:00)
[2017-08-21] MEDS: SALMETEROL/FLUTICASONE 500/50 INH SCH (19:00)
--- NOTE | 2017-08-21 21:10 | Diagnostic Imaging Report ---
EXAM: VENTILATION PERFUSION LUNG SCAN INDICATION: 71 F with CHF exacerbation COMPARISON: Chest radiograph 07/24/2017 DISCUSSION: Xenon-133 gas 15 mCi was administered via inhalation. Dynamic images of the lungs in the posterior projection were obtained through single breath and washout phases. Distribution of tracer activity is very irregular throughout the lungs. A photopenic band is seen across the mid aspect of the right lung horizontally. Washout is diffusely delayed air trapping in the left upper lobe and throughout the right lung. Perfusion images of the lungs in multiple projections were obtained following intravenous administration of 6 mCi of Tc-99m MAA. Distribution of tracer is very irregular throughout the lungs. A nonsegmental horizontal band of decreased tracer activity is seen across the mid aspect of the right lung and matches the finding on ventilation imaging. Distribution of tracer appears relatively decreased in the left lung compared to the right lung, more pronounced on the image in the posterior projection. There are multiple nonsegmental perfusion defects. There are no segmental perfusion defects. The perfusion images are well matched to the ventilation images. The cardiac silhouette is unremarkable. IMPRESSION: 1. Scan findings represent a LOW probability for acute pulmonary embolic disease based on the PIOPED II criteria. 2. Scan findings are compatible with diffuse parenchymal lung disease, severe obstructive lung disease and likely left pleural effusion. Signed by: Dr. Alma Barnhart M.D. on 08/21/2017 9:07 PM
[2017-08-21] MEDS: AMLODIPINE BESYLATE 10 MG TAB PO SCH (21:26)
[2017-08-21] MEDS: DONEPEZIL HCL 5 MG TAB PO SCH (21:26)
[2017-08-21] MEDS: TRAZODONE HCL 50 MG TAB PO SCH (21:26)
[2017-08-21] MEDS: INSULIN ASPART 70/30 100 UNITS/ML VIAL SC SCH (21:40)
[2017-08-22] VITALS (7 sets, daily range): BP systolic 116–154; BP diastolic 54–68
[2017-08-22] MEDS: ACETAMINOPHEN/CODEINE 300MG - 30MG TAB PO SCH ×4 (06:26→21:00)
[2017-08-22] MEDS: INSULIN ASPART 70/30 100 UNITS/ML VIAL SC SCH ×4 (07:30→22:13)
[2017-08-22] MEDS: PANTOPRAZOLE SOD 40 MG TABEC PO SCH (07:30)
[2017-08-22] MEDS: SALMETEROL/FLUTICASONE 500/50 INH SCH ×2 (08:48→19:00)
[2017-08-22] MEDS ORDERED: ASPIRIN 325 MG TAB PO SCH (09:00)
[2017-08-22] MEDS: HYDRALAZINE HCL 25 MG TAB PO SCH ×2 (09:00→17:00)
[2017-08-22] MEDS: ASPIRIN 81 MG ENTERIC COATED PO SCH (09:00)
[2017-08-22] MEDS: GABAPENTIN 300 MG CAP PO SCH ×3 (09:00→21:06)
[2017-08-22] MEDS: FUROSEMIDE INJ 10 MG/ML 4 ML VIAL IV SCH ×2 (09:00→17:00)
[2017-08-22] MEDS: SERTRALINE HCL 50 MG TAB PO SCH (09:00)
[2017-08-22] MEDS: TIZANIDINE HCL 4 MG TAB PO SCH ×2 (09:00→17:00)
[2017-08-22] MEDS: FERROUS SULFATE 325 MG TAB PO SCH (09:00)
[2017-08-22 11:13] LABS: BASOPHILS % 0.4 % (0.0-1.0); EOSINOPHILS % 0.1 % (0.0-6.0); HEMATOCRIT 31.2 % (34.2-44.1); HEMOGLOBIN 9.8 g/dL (12.0-16.0); LYMPHOCYTES # (AUTO) 1.1 (1.0-3.2); LYMPHOCYTES % 16.1 % (18.0-39.1); MEAN CORPUSCULAR HGB CONC 31.4 g/dL (31-35); MEAN CORPUSCULAR VOLUME 92.3 fL (81-99); MONOCYTES # (AUTO) 0.3 (0.2-0.8); MONOCYTES % 3.6 % (4.4-11.3); NEUTROPHILS # (AUTO) 5.5 (2.1-6.9); NEUTROPHILS % 78.7 % (38.7-80.0); PLATELET COUNT 132 x10e3/uL (140-360); RED BLOOD COUNT 3.38 x10e6/uL (3.6-5.1); RED CELL DISTRIBUTION WIDTH 15.3 % (11.7-14.4)
[2017-08-22 11:36] LABS: ALBUMIN 2.1 g/dL (3.5-5.0); ALBUMIN/GLOBULIN RATIO 0.7 (0.8-2.0); ALKALINE PHOSPHATASE 40 IU/L (40-150); ANION GAP 11.5 mmol/L (8-16); BLOOD UREA NITROGEN 32 mg/dL (7-26); BUN/CREATININE RATIO 16 (6-25); CALCIUM 8.3 mg/dL (8.4-10.2); CARBON DIOXIDE 24 mmol/L (22-29); CHLORIDE 104 mmol/L (98-107); CREATININE, SERUM 1.99 mg/dL (0.57-1.11); EST GLOMERULAR FILTRATION RATE 25 ML/MIN (60-); GLUCOSE 158 mg/dL (74-118); POTASSIUM 4.5 mmol/L (3.5-5.1); SODIUM 135 mmol/L (136-145)
[2017-08-22 11:39] LABS: ALANINE AMINOTRANSFERASE < 6 IU/L (0-55)
[2017-08-22] MEDS: METOPROLOL SUCCINATE 25 MG TAB XL PO SCH ×2 (11:57→17:00)
[2017-08-22] MEDS: CYANOCOBALAMIN 1,000 MCG TAB PO SCH (12:05)
[2017-08-22] MEDS: AMLODIPINE BESYLATE 10 MG TAB PO SCH (21:00)
[2017-08-22] MEDS: DONEPEZIL HCL 5 MG TAB PO SCH (21:06)
[2017-08-22] MEDS: TRAZODONE HCL 50 MG TAB PO SCH (21:06)
[2017-08-23] VITALS (7 sets, daily range): BP systolic 94–161; BP diastolic 54–70
[2017-08-23] MEDS: SALMETEROL/FLUTICASONE 500/50 INH SCH ×2 (07:00→19:35)
[2017-08-23] MEDS: PANTOPRAZOLE SOD 40 MG TABEC PO SCH (07:30)
[2017-08-23 07:54] LABS: ANION GAP 12.5 mmol/L (8-16); CALCIUM 8.4 mg/dL (8.4-10.2); CREATININE, SERUM 2.33 mg/dL (0.57-1.11); POTASSIUM 4.5 mmol/L (3.5-5.1)
[2017-08-23] MEDS: SERTRALINE HCL 50 MG TAB PO SCH (09:00)
[2017-08-23] MEDS: FERROUS SULFATE 325 MG TAB PO SCH (09:00)
[2017-08-23] MEDS: TIZANIDINE HCL 4 MG TAB PO SCH ×2 (09:00→17:00)
[2017-08-23] MEDS: GABAPENTIN 300 MG CAP PO SCH ×3 (09:00→21:00)
[2017-08-23] MEDS: ASPIRIN 81 MG ENTERIC COATED PO SCH (09:00)
[2017-08-23] MEDS: METOPROLOL SUCCINATE 25 MG TAB XL PO SCH ×2 (09:00→17:00)
[2017-08-23] MEDS: CYANOCOBALAMIN 1,000 MCG TAB PO SCH (09:00)
[2017-08-23] MEDS: ACETAMINOPHEN/CODEINE 300MG - 30MG TAB PO SCH ×4 (09:00→21:01)
[2017-08-23] MEDS: FUROSEMIDE INJ 10 MG/ML 4 ML VIAL IV SCH ×2 (09:00→17:00)
[2017-08-23] MEDS: HYDRALAZINE HCL 25 MG TAB PO SCH ×2 (09:00→17:00)
--- NOTE | 2017-08-23 19:53 | Consultation ---
DATE OF CONSULTATION: August 23, 2017 NEPHROLOGY CONSULTATION REASON FOR CONSULTATION: Chronic kidney disease. HISTORY OF PRESENT ILLNESS: This is a pleasant 71-year-old female who is known to have multiple medical problems including hypertension, diabetes, history of stroke with left-sided weakness and she is known to have CKD stage 4 with her GFR lately around 17 mL per minute. She is also known to have COPD along with previous gallbladder cancer, status post cholecystectomy and cervical cancer, status post TAHBSO and history of melanoma. The patient has been having frequent admission, last one was a week ago at [facility] for fluid overload and pulmonary edema with shortness of breath. She was discharged a week ago on Lasix 20 mg daily, which the daughter thought that was not enough as the patient was making urine, however, the swelling was coming back and was getting worse with shortness of breath. She has oxygen at home, but that was not relieving the patient. There is also chest pressure sensation. No cough, no nausea, no vomiting, no diarrhea, no focal motor or sensory deficit new for the patient. So, she brought her into the ER after she went to Dr. Palacios's office and she is being admitted for CHF exacerbation. We are consulted given that patient has a history of CKD. PHYSICAL EXAMINATION: VITAL SIGNS: Today, last blood pressure reading was 127/57, heart rate 60, and temperature 97.7. GENERAL APPEARANCE: No acute distress times 3, on nasal cannula oxygen. HEAD, EARS, EYES, NECK: No lymphadenopathy. HEART: Regular rate and rhythm. LUNGS: Decreased breath sounds at the bases with rales. ABDOMEN: Soft, nontender, obese. EXTREMITIES: +2 edema. PAST MEDICAL HISTORY: As mentioned above. PAST SURGICAL HISTORY: Status post appendectomy, status post cholecystectomy, status post TAHBSO, status post back and neck surgeries, and she is status post bladder suspension and she has history previously of urine retention in 2015, seen by Dr. Thayer. FAMILY HISTORY: Positive for hypertension and diabetes. SOCIAL HISTORY: No smoking, alcohol, or illicit drug abuse. She is also known to have hepatitis C cirrhosis that was treated few years ago and history of TB exposure. LABS: Hemoglobin is 9.8, white count is 7. Sodium 136, potassium 4.5, CO2 is 26, BUN 35, and creatinine went from 2 to 2.3. BNP is elevated at 337, now 267. Albumin is 2.1. Chest x-ray with pulmonary congestion. ASSESSMENT AND PLAN 1. Chronic kidney disease stage 4 with her last GFR fluctuating between 17 and 25 mL per minute. The creatinine today is 2.3, which is close to her baseline around 2. We are not going to do further workup. I am going to check only renal ultrasound and monitor her urine output and no NSAIDs or nephrotoxins. The creatinine might go up with further aggressive diuresis, which is accepted as long as the patient is making more urine and her edema is improving, so we are going to monitor her labs closely in the meantime. I think the patient is still at her baseline and we are going to continue diuresis. 2. Electrolytes. Potassium is within range and she is on low salt diet. 3. Edema and congestive heart failure exacerbation. Patient is being admitted and evaluated by cardiology. VQ scan was negative. She is going for a stress test. In the meantime, echo was done. We are going to keep aggressive IV diuresis. She is now currently at 40 mg IV twice a day and monitor urine output and titrate according to diuresis response. I explained to the daughter that creatinine might go further up with further diuresis, however, if that is helping with the edema, we should continue on diuresis. 4. Diabetes. Monitor insulin. 5. Status post cerebrovascular accident with left-sided weakness. 6. Congestive heart failure diastolic exacerbation. Dr. Will is following. She is going for a stress test and echo was done. Follow up on the results. 7. History of urinary retention status post bladder suspension. At this time, she has a Jenkins and we are going to monitor urine output. Check urine cultures. 8. History of hepatitis C cirrhosis that was treated. 9. History of cervical cancer, status post total abdominal hysterectomy and bilateral salpingo-oophorectomy. 10. History of gallbladder cancer, status post cholecystectomy. 11. Blood pressure, systolic has been between 140s to 150s. She is on beta-re and she is on hydralazine and amlodipine. So far, it is acceptable. So from renal standpoint, we are going to continue IV diuresis given pulmonary congestion with CHF exacerbation. I am going to check renal ultrasound and monitor her urine output in the next few days and titrate the Lasix according to her diuresis response. Thank you for the consult. We will update the primary team for further recommendations. Job#: [id number] VAS
[2017-08-23] MEDS: TRAZODONE HCL 50 MG TAB PO SCH (21:00)
[2017-08-23] MEDS: AMLODIPINE BESYLATE 10 MG TAB PO SCH (21:00)
[2017-08-23] MEDS: DONEPEZIL HCL 5 MG TAB PO SCH ×2 (21:00→21:10)
[2017-08-23] MEDS ORDERED: INSULIN ASPART 70/30 100 UNITS/ML VIAL SC SCH (21:00)
[2017-08-24] VITALS: BP 113/54
[2017-08-24 04:00] VITALS: BP 104/51
[2017-08-24] MEDS: SALMETEROL/FLUTICASONE 500/50 INH SCH ×2 (07:00→19:25)
[2017-08-24] MEDS: PANTOPRAZOLE SOD 40 MG TABEC PO SCH (07:30)
[2017-08-24] MEDS ORDERED: INSULIN ASPART 70/30 100 UNITS/ML VIAL SC SCH (07:30)
[2017-08-24 07:53] LABS: BASOPHILS % 0.5 % (0.0-1.0); EOSINOPHILS # (AUTO) 0.1 (0.0-0.4); EOSINOPHILS % 1.8 % (0.0-6.0); HEMATOCRIT 26.2 % (34.2-44.1); HEMOGLOBIN 8.4 g/dL (12.0-16.0); LYMPHOCYTES # (AUTO) 2.3 (1.0-3.2); LYMPHOCYTES % 34.7 % (18.0-39.1); MEAN CORPUSCULAR HEMOGLOBIN 29.7 pg (28-32); MEAN CORPUSCULAR HGB CONC 32.1 g/dL (31-35); MEAN CORPUSCULAR VOLUME 92.6 fL (81-99); MONOCYTES # (AUTO) 0.5 (0.2-0.8); MONOCYTES % 6.8 % (4.4-11.3); NEUTROPHILS # (AUTO) 3.7 (2.1-6.9); NEUTROPHILS % 55.3 % (38.7-80.0); PLATELET COUNT 133 x10e3/uL (140-360); RED BLOOD COUNT 2.83 x10e6/uL (3.6-5.1); RED CELL DISTRIBUTION WIDTH 15.6 % (11.7-14.4)
[2017-08-24 08:00] VITALS: BP 121/53
[2017-08-24 08:09] LABS: MAGNESIUM 1.6 MG/DL (1.3-2.1); PHOSPHORUS 6.5 MG/DL (2.3-4.7)
[2017-08-24 08:12] LABS: ALBUMIN 1.9 g/dL (3.5-5.0); ALBUMIN/GLOBULIN RATIO 0.7 (0.8-2.0); ALKALINE PHOSPHATASE 31 IU/L (40-150); BLOOD UREA NITROGEN 40 mg/dL (7-26); BUN/CREATININE RATIO 16 (6-25); CALCIUM 7.9 mg/dL (8.4-10.2); CARBON DIOXIDE 25 mmol/L (22-29); CHLORIDE 102 mmol/L (98-107); CREATININE, SERUM 2.54 mg/dL (0.57-1.11); EST GLOMERULAR FILTRATION RATE 19 ML/MIN (60-); GLUCOSE 62 mg/dL (74-118); SODIUM 134 mmol/L (136-145)
[2017-08-24 08:15] LABS: ALANINE AMINOTRANSFERASE < 6 IU/L (0-55)
[2017-08-24] MEDS ORDERED: REGADENOSON 0.4 MG/5 ML SYR IV ONE (08:30)
[2017-08-24] MEDS: TIZANIDINE HCL 4 MG TAB PO SCH ×2 (09:00→17:20)
[2017-08-24] MEDS: HYDRALAZINE HCL 25 MG TAB PO SCH ×2 (09:00→17:19)
[2017-08-24] MEDS: ACETAMINOPHEN/CODEINE 300MG - 30MG TAB PO SCH ×3 (09:00→17:20)
[2017-08-24] MEDS: GABAPENTIN 300 MG CAP PO SCH ×3 (09:00→21:10)
[2017-08-24] MEDS: METOPROLOL SUCCINATE 25 MG TAB XL PO SCH ×2 (09:00→17:20)
[2017-08-24] MEDS: FUROSEMIDE INJ 10 MG/ML 4 ML VIAL IV SCH ×2 (09:00→17:19)
[2017-08-24 10:08] VITALS: BP 121/53
--- NOTE | 2017-08-24 11:56 | Consultation ---
DATE OF CONSULTATION: August 24, 2017 Ms. Myrna Bingham is an exiting patient of [facility], follows with Dr. Hartmann for her chronic kidney disorder. She has had prior history of GI bleed, history of congestive heart failure, history of prior pleural effusion, increased BMI, type-2 diabetes with end-organ damage, history of previous pneumonia, diabetic retinopathy, diabetic neuropathy. Came in with congestive heart failure exacerbation. Currently awake and alert. Scheduled for a stress test. In no apparent distress. ALLERGIES: NO APPARENT DRUG ALLERGIES. CURRENT MEDICATIONS: The patient is on: 1. Tylenol p.r.n. 2. Amlodipine 10 mg p.o. each bedtime. 3. Aspirin, enteric coated. 4. Vitamin B12. 5. Aricept. 6. Ferrous sulfate. 7. Furosemide 40 IV q.12. 8. Gabapentin 300 mg p.o. t.i.d. 9. Hydralazine 50 mg p.o. b.i.d. 10. Insulin. 11. Metoprolol 25 mg p.o. b.i.d. 12. Pantoprazole. 13. Sertraline, Zoloft, 50 mg daily. 14. Trazodone 150 mg at bedtime. 15. Zanaflex, tizanidine, 4 mg p.o. b.i.d. SOCIAL HISTORY: Does not smoke or drink. FAMILY HISTORY: Significant for hypertension and diabetes. CURRENT LABS: White count 6.6. Hemoglobin 8.4. Potassium 5. BUN and creatinine 40 and 2.4 respectively. PHYSICAL EXAMINATION GENERAL: Awake, alert, lying supine. No apparent distress. VITALS: Blood pressure 104/51. Pulse rate 70. Afebrile. HEAD AND NECK: Corneas clear. Oral mucosa dry. LUNGS: Occasional rales, right lower zone more than left. HEART: S1 and S2 audible. Soft 2/6 to 3/6 ejection systolic murmur heard over left sternal border. ABDOMEN: Otherwise soft and nontender. LOWER EXTREMITY EXAMINATION: 1+ edema. IMPRESSION 1. Evidence of mild congestive heart failure. 2. [id number] kidney failure. 3. Diabetic and hypertensive nephrosclerosis. Will obtain clinic records. Continue with diuresis. Place on a potassium-restricted diet. Discussed with RN. Stress test pending. Please see orders. Job#: [id number]
[2017-08-24] MEDS: CYANOCOBALAMIN 1,000 MCG TAB PO SCH (14:00)
[2017-08-24] MEDS: FERROUS SULFATE 325 MG TAB PO SCH (14:00)
[2017-08-24] MEDS: SERTRALINE HCL 50 MG TAB PO SCH (14:00)
[2017-08-24] MEDS: ASPIRIN 81 MG ENTERIC COATED PO SCH (14:00)
--- NOTE | 2017-08-24 15:37 | Cardiology Report ---
DATE OF STUDY: LEXISCAN NUCLEAR STRESS TEST INDICATION: Shortness of breath. TECHNIQUE: The patient was given 11 millicuries of Myoview. Resting images were obtained in the horizontal long axis, vertical long axis and short axis. Patient was then moved to the stress table, and hooked up to the EKG. Lexiscan was infused over 15 seconds. Immediately after Lexiscan infusion, the patient was given 30 millicuries of Myoview. Stress images were obtained in the horizontal long axis, vertical long axis and short axis. RESULTS 1. Resting EKG demonstrated normal sinus rhythm with some nonspecific S/T and T-wave changes. 2. There were no EKG changes and no symptoms during Lexiscan infusion. 3. There was normal perfusion to all segments of the myocardium on both stress and rest. 4. There was normal left ventricular size and function with an ejection fraction of 66%. CONCLUSION: The patient has normal perfusion to all segments of the myocardium in stress and rest. There is normal left ventricular size and function with an ejection fraction of 66%. There is no evidence of ischemia. Job#: [id number] RI cc:ZIA FAM MD
[2017-08-24 16:30] VITALS: BP 166/73
--- NOTE | 2017-08-24 17:15 | Diagnostic Imaging Report ---
PROCEDURE:US RETROPERITONEAL ( KIDNEY ). COMPARISON:CT abdomen pelvis 11/20/69. INDICATIONS:[place] TECHNIQUE: Figueroa-scale and color sonographic images of the bilateral kidneys and bladder where obtained in transverse and longitudinal planes. FINDINGS: RIGHT KIDNEY: 12.8 x 4.7 x 4.2 cm, cortex 1.1 cm. Prominent column of Frank. Cysts: None Solid masses: None Stones: None Hydronephrosis: None Echogenicity: Normal LEFT KIDNEY: 8.4 x 5.6 x 3.9 cm, cortex 1.1 cm Cysts: None Solid masses: None Stones: None Hydronephrosis: None Echogenicity: Normal Bladder: Decompressed with a Jenkins catheter. CONCLUSION: 1. Thin renal cortices consistent with medical renal disease. 2. Duplicated right renal collecting system. Dictated by: Jerardo Cronin M.D. on 08/24/2017 at 17:14 Electronically approved by: Jerardo Cronin M.D. on 08/24/2017 at 17:14
[2017-08-24 20:00] VITALS: BP 122/56
[2017-08-24] MEDS: AMLODIPINE BESYLATE 10 MG TAB PO SCH (21:00)
[2017-08-24] MEDS: TRAZODONE HCL 50 MG TAB PO SCH (21:10)
[2017-08-24] MEDS: INSULIN ASPART 70/30 100 UNITS/ML VIAL SC SCH (21:10)
[2017-08-25] VITALS (8 sets, daily range): BP systolic 105–150; BP diastolic 45–63
[2017-08-25] MEDS: ACETAMINOPHEN/CODEINE 300MG - 30MG TAB PO SCH ×5 (00:29→20:20)
[2017-08-25] MEDS: SALMETEROL/FLUTICASONE 500/50 INH SCH ×2 (07:00→19:50)
[2017-08-25 07:21] LABS: BASOPHILS % 0.5 % (0.0-1.0); EOSINOPHILS # (AUTO) 0.1 (0.0-0.4); EOSINOPHILS % 2.2 % (0.0-6.0); HEMATOCRIT 27.2 % (34.2-44.1); HEMOGLOBIN 8.7 g/dL (12.0-16.0); LYMPHOCYTES # (AUTO) 1.5 (1.0-3.2); LYMPHOCYTES % 23.4 % (18.0-39.1); MEAN CORPUSCULAR HEMOGLOBIN 29.4 pg (28-32); MEAN CORPUSCULAR VOLUME 91.9 fL (81-99); MONOCYTES # (AUTO) 0.5 (0.2-0.8); MONOCYTES % 7.8 % (4.4-11.3); NEUTROPHILS # (AUTO) 4.3 (2.1-6.9); NEUTROPHILS % 65.3 % (38.7-80.0); PLATELET COUNT 145 x10e3/uL (140-360); RED BLOOD COUNT 2.96 x10e6/uL (3.6-5.1); RED CELL DISTRIBUTION WIDTH 15.4 % (11.7-14.4); RETICULOCYTE % 2.1 % (0.8-2.2)
[2017-08-25 07:52] LABS: ALBUMIN 2.1 g/dL (3.5-5.0); ALBUMIN/GLOBULIN RATIO 0.7 (0.8-2.0); ALKALINE PHOSPHATASE 36 IU/L (40-150); ANION GAP 13.8 mmol/L (8-16); BLOOD UREA NITROGEN 46 mg/dL (7-26); BUN/CREATININE RATIO 16 (6-25); CALCIUM 8.2 mg/dL (8.4-10.2); CARBON DIOXIDE 24 mmol/L (22-29); CHLORIDE 100 mmol/L (98-107); CREATININE, SERUM 2.82 mg/dL (0.57-1.11); EST GLOMERULAR FILTRATION RATE 17 ML/MIN (60-); GLUCOSE 101 mg/dL (74-118); POTASSIUM 5.8 mmol/L (3.5-5.1); SODIUM 132 mmol/L (136-145)
[2017-08-25 07:57] LABS: B-TYPE NATRIURETIC PEPTIDE2 208.6 pg/mL (0-100)
[2017-08-25 08:11] LABS: ALANINE AMINOTRANSFERASE < 6 IU/L (0-55)
[2017-08-25] MEDS: TIZANIDINE HCL 4 MG TAB PO SCH ×2 (08:50→17:32)
[2017-08-25] MEDS: FERROUS SULFATE 325 MG TAB PO SCH (08:50)
[2017-08-25] MEDS: SERTRALINE HCL 50 MG TAB PO SCH (08:50)
[2017-08-25] MEDS: FUROSEMIDE INJ 10 MG/ML 4 ML VIAL IV SCH ×2 (08:50→17:31)
[2017-08-25] MEDS: METOPROLOL SUCCINATE 25 MG TAB XL PO SCH ×2 (08:50→17:32)
[2017-08-25] MEDS: GABAPENTIN 300 MG CAP PO SCH (08:50)
[2017-08-25] MEDS: HYDRALAZINE HCL 25 MG TAB PO SCH ×2 (08:50→17:32)
[2017-08-25] MEDS: CYANOCOBALAMIN 1,000 MCG TAB PO SCH (08:50)
[2017-08-25] MEDS: ASPIRIN 81 MG ENTERIC COATED PO SCH (08:50)
[2017-08-25] MEDS: INSULIN ASPART 70/30 100 UNITS/ML VIAL SC SCH ×2 (08:50→21:10)
[2017-08-25] MEDS: SODIUM CHLORIDE 0.9% 1000ML 1,000 ML IV SCH ×2 (11:00→20:20)
[2017-08-25] MEDS ORDERED: SOD POLYSTYRENE SULFONATE SUSP 15 GM/60 ML BTL PR ONE (11:15)
[2017-08-25] MEDS: PANTOPRAZOLE SOD 40 MG TABEC PO SCH (11:24)
[2017-08-25] MEDS ORDERED: DIATRIZOATE MEGL/DIATRIZOA SOD 30 ML BTL PO ONE (14:51)
[2017-08-25 16:27] LABS: CREATININE,URINE RANDOM 29.19 mg/dL (47-110); SODIUM,URINE 39 mmol/L; TOTAL PROTEIN, URINE 191.7 mg/dL (1-14)
[2017-08-25 16:47] LABS: EOSINOPHIL SMEAR,URINE PRESENT (NONE SEEN)
--- NOTE | 2017-08-25 17:10 | Diagnostic Imaging Report ---
PROCEDURE: CT ABDOMEN AND PELVIS WITHOUT CONTRAST TECHNIQUE: The abdomen and pelvis were scanned utilizing a multidetector helical scanner from the diaphragm to the lesser trochanter after the oral administration of dilute Gastrografin. No IV contrast was administered due to decreased GFR.. Coronal and sagittal multiplanar reformations were obtained. COMPARISON: Patients [facility], CT, CT ABDOMEN/PELVIS , 11/20/2016, 15:00. INDICATIONS: ABD PAIN FINDINGS: Exam limited due to beam attenuation, as the patient was unable to lift arms above the head ABSENCE OF INTRAVENOUS CONTRAST DECREASES SENSITIVITY FOR DETECTION OF FOCAL LESIONS AND VASCULAR PATHOLOGY. LOWER THORAX: Bilateral moderate pleural effusions with moderate compressive atelectasis of bilateral lower lobes. Atherosclerotic calcification of the coronary arteries and thoracic aorta. HEPATOBILIARY: No focal hepatic lesions. No biliary ductal dilatation. Gallbladder is not visualized. SPLEEN: No splenomegaly. PANCREAS: No focal masses or ductal dilatation. Moderate to marked pancreatic atrophy, predominantly in the neck, body and tail ADRENALS: No adrenal nodules. KIDNEYS/URETERS: No renal or ureteral calculi. No hydronephrosis, hydroureter, or evidence of obstruction. Duplicated right renal collecting system and at least partial duplication of the proximal right ureter. No contour abnormalities. Unchanged mild bilateral perinephric stranding. PELVIC ORGANS/BLADDER: Mostly decompressed bladder with Jenkins catheter in place. Uterus is absent. No adnexal masses. PERITONEUM / RETROPERITONEUM: No free air or fluid. Stable 1.6 cm nodular density in the mid right gonadal vein (series 2 image 56 and coronal image 59), likely representing variceal dilation or thrombus. LYMPH NODES: No lymphadenopathy. VESSELS: Atherosclerotic calcification of the abdominal aorta, aortic branches, and iliac vessels. GI TRACT: Mild to moderate distention of the stomach. No bowel dilation or evidence of obstruction. No pericolonic inflammatory changes. Moderate amount of retained stool in the colon. BONES AND SOFT TISSUES: No aggressive lytic lesion. Generalized osteopenia. Multilevel degenerative disc changes in the lower thoracic and lumbosacral spine, with degenerative changes in bilateral hip joints, right greater than left. Facet hypertrophy L3-S1. Generalized soft tissue edema/anasarca, predominantly lower abdomen and pelvis. Multiple calcifications are again seen in the soft tissues of the anterior and anterolateral abdominopelvic wall, likely from prior injection sites. IMPRESSION: 1. No acute abdominopelvic abnormalities. Specifically, no bowel dilation or evidence of obstruction. Moderate amount of retained stool in the colon, suggesting constipation. 2. Generalized soft tissue edema/anasarca, predominantly in the lower abdomen and pelvis. 3. Moderate bilateral pleural effusions with moderate compressive atelectasis of bilateral lower lobes. Alvarado Lal M.D. Dictated by: Alvarado Lal M.D. on 08/25/2017 at 17:11 Electronically approved by: Alvarado Lal M.D. on 08/25/2017 at 17:11
[2017-08-25] MEDS: ONDANSETRON HCL INJ 2 MG/ML VIAL IV PRN (17:30)
[2017-08-25] MEDS: TRAZODONE HCL 50 MG TAB PO SCH (20:20)
[2017-08-25] MEDS: DONEPEZIL HCL 5 MG TAB PO SCH (20:20)
[2017-08-25] MEDS: AMLODIPINE BESYLATE 10 MG TAB PO SCH (21:00)
[2017-08-26] VITALS (8 sets, daily range): BP systolic 104–151; BP diastolic 47–68
[2017-08-26] MEDS: SODIUM CHLORIDE 0.9% 1000ML 1,000 ML IV SCH ×2 (05:42→10:34)
[2017-08-26 06:57] LABS: BASOPHILS % 0.6 % (0.0-1.0); EOSINOPHILS # (AUTO) 0.1 (0.0-0.4); EOSINOPHILS % 1.8 % (0.0-6.0); HEMATOCRIT 27.2 % (34.2-44.1); HEMOGLOBIN 8.7 g/dL (12.0-16.0); LYMPHOCYTES # (AUTO) 1.3 (1.0-3.2); LYMPHOCYTES % 21.1 % (18.0-39.1); MEAN CORPUSCULAR VOLUME 93.8 fL (81-99); MONOCYTES # (AUTO) 0.6 (0.2-0.8); MONOCYTES % 8.8 % (4.4-11.3); NEUTROPHILS # (AUTO) 4.1 (2.1-6.9); NEUTROPHILS % 66.4 % (38.7-80.0); PLATELET COUNT 147 x10e3/uL (140-360); RED CELL DISTRIBUTION WIDTH 15.6 % (11.7-14.4)
[2017-08-26] MEDS: SALMETEROL/FLUTICASONE 500/50 INH SCH ×2 (07:00→19:10)
[2017-08-26 07:18] LABS: MAGNESIUM 1.5 MG/DL (1.3-2.1)
[2017-08-26 07:21] LABS: ALANINE AMINOTRANSFERASE 6 IU/L (0-55); ALBUMIN/GLOBULIN RATIO 0.7 (0.8-2.0); ALKALINE PHOSPHATASE 38 IU/L (40-150); ANION GAP 12.3 mmol/L (8-16); BLOOD UREA NITROGEN 41 mg/dL (7-26); BUN/CREATININE RATIO 16 (6-25); CALCIUM 8.1 mg/dL (8.4-10.2); CARBON DIOXIDE 26 mmol/L (22-29); CHLORIDE 100 mmol/L (98-107); CREATININE, SERUM 2.63 mg/dL (0.57-1.11); EST GLOMERULAR FILTRATION RATE 18 ML/MIN (60-); GLUCOSE 86 mg/dL (74-118); POTASSIUM 5.3 mmol/L (3.5-5.1); SODIUM 133 mmol/L (136-145)
[2017-08-26] MEDS: INSULIN ASPART 70/30 100 UNITS/ML VIAL SC SCH ×2 (07:30→21:35)
[2017-08-26 07:51] LABS: FERRITIN 356.59 ng/mL (4.63-204.00)
[2017-08-26] MEDS: PANTOPRAZOLE 40 MG 10ML VIAL IV SCH (08:56)
[2017-08-26] MEDS: FUROSEMIDE INJ 10 MG/ML 4 ML VIAL IV SCH ×3 (08:56→19:24)
[2017-08-26] MEDS: TIZANIDINE HCL 4 MG TAB PO SCH ×2 (09:00→17:17)
[2017-08-26] MEDS: METOPROLOL SUCCINATE 25 MG TAB XL PO SCH ×2 (09:00→17:16)
[2017-08-26] MEDS: HYDRALAZINE HCL 25 MG TAB PO SCH ×2 (09:00→17:16)
[2017-08-26] MEDS: ACETAMINOPHEN/CODEINE 300MG - 30MG TAB PO SCH ×4 (09:00→21:35)
[2017-08-26] MEDS ORDERED: SOD POLYSTYRENE SULFONATE SUSP 15 GM/60 ML BTL PR STA (13:54)
[2017-08-26] MEDS ORDERED: SOD POLYSTYRENE SULFONATE SUSP 15 GM/60 ML BTL PR SCH (14:00)
--- NOTE | 2017-08-26 14:17 | Operative Report ---
DATE OF PROCEDURE: August 26, 2017 REFERRING PHYSICIAN: Dr. Chip Fam PROCEDURE PERFORMED: Esophagogastroduodenoscopy with biopsies. INDICATIONS FOR ESOPHAGOGASTRODUODENOSCOPY: History of coffee-ground emesis. MEDICATION: Patient was done under MAC. Please see anesthesiologist's note. PROCEDURE: With the patient in the left lateral decubitus position, the flexible fiberoptic Olympus gastroscope was introduced into the esophagus under direct visualization without any difficulty. There was some patchy erythema noted in the distal esophagus. The scope was then advanced with ease into the stomach, and a moderate amount of retained undigested food was noted in the midbody of the stomach as well as in the antrum. Some of the retained food in the antrum was basically removed per the water jet, and the mucosa overlying the distal antrum revealed some patchy intense erythema and low-grade edema, and biopsies were obtained and sent to stain for H. pylori. The pylorus was of normal contour and shape, was intubated with ease, and the scope was advanced all the way to the 2nd portion of the duodenum. The scope was then withdrawn slowly. Mucosa overlying the proximal 2nd portion appeared to be within normal limits. There was some patchy erythema noted in the duodenal bulb. The scope was then withdrawn back into the stomach and retroflexed, and also some moderate amount of retained undigested food was noted in the fundus, precluding optimal visualization of the fundus. The cardia appeared to be within normal limits. The scope was then straightened out. The stomach was decompressed. The scope was subsequently withdrawn. Patient tolerated the procedure well. IMPRESSION: 1. Distal esophagitis. 2. Gastritis, antrum, biopsied. Biopsies sent to stain for H. pylori. 3. Gastroparesis with moderate amount of retained undigested food in stomach. PLAN: Follow up histology. Initiate Protonix 40 mg 1 p.o. q.a.m. a.c. The above findings do not necessarily explain patient's anemia. Might benefit from a colonoscopy. Job#: [id number] EV cc:ZIA FAM MD
[2017-08-26] MEDS: SERTRALINE HCL 50 MG TAB PO SCH (14:48)
[2017-08-26] MEDS: ASPIRIN 81 MG ENTERIC COATED PO SCH (14:48)
[2017-08-26] MEDS: ONDANSETRON HCL INJ 2 MG/ML VIAL IV PRN (14:48)
[2017-08-26] MEDS: FERROUS SULFATE 325 MG TAB PO SCH (14:48)
[2017-08-26] MEDS: CYANOCOBALAMIN 1,000 MCG TAB PO SCH (14:48)
[2017-08-26] MEDS ORDERED: PROPOFOL IV EMULSION 10 MG/ML 20 ML VIAL ONE (17:43)
[2017-08-26] MEDS: DONEPEZIL HCL 5 MG TAB PO SCH (21:33)
[2017-08-26] MEDS: TRAZODONE HCL 50 MG TAB PO SCH (21:34)
[2017-08-26] MEDS: AMLODIPINE BESYLATE 10 MG TAB PO SCH (21:34)
[2017-08-27] VITALS (8 sets, daily range): BP systolic 111–152; BP diastolic 51–63
[2017-08-27] MEDS: SALMETEROL/FLUTICASONE 500/50 INH SCH ×2 (07:00→20:40)
[2017-08-27 07:11] LABS: BASOPHILS % 0.5 % (0.0-1.0); EOSINOPHILS # (AUTO) 0.1 (0.0-0.4); EOSINOPHILS % 1.1 % (0.0-6.0); HEMATOCRIT 28.1 % (34.2-44.1); LYMPHOCYTES # (AUTO) 0.9 (1.0-3.2); LYMPHOCYTES % 10.3 % (18.0-39.1); MEAN CORPUSCULAR HEMOGLOBIN 30.3 pg (28-32); MEAN CORPUSCULAR VOLUME 94.6 fL (81-99); MONOCYTES # (AUTO) 0.7 (0.2-0.8); MONOCYTES % 8.1 % (4.4-11.3); NEUTROPHILS # (AUTO) 6.5 (2.1-6.9); NEUTROPHILS % 79.2 % (38.7-80.0); PLATELET COUNT 138 x10e3/uL (140-360); RED BLOOD COUNT 2.97 x10e6/uL (3.6-5.1); RED CELL DISTRIBUTION WIDTH 15.9 % (11.7-14.4)
[2017-08-27] MEDS: INSULIN ASPART 70/30 100 UNITS/ML VIAL SC SCH ×2 (07:30→22:28)
[2017-08-27 07:35] LABS: ALANINE AMINOTRANSFERASE 8 IU/L (0-55); ALBUMIN 2.1 g/dL (3.5-5.0); ALBUMIN/GLOBULIN RATIO 0.7 (0.8-2.0); ALKALINE PHOSPHATASE 41 IU/L (40-150); ANION GAP 13.4 mmol/L (8-16); BLOOD UREA NITROGEN 39 mg/dL (7-26); BUN/CREATININE RATIO 15 (6-25); CALCIUM 8.1 mg/dL (8.4-10.2); CARBON DIOXIDE 25 mmol/L (22-29); CHLORIDE 103 mmol/L (98-107); CREATININE, SERUM 2.64 mg/dL (0.57-1.11); EST GLOMERULAR FILTRATION RATE 18 ML/MIN (60-); POTASSIUM 4.4 mmol/L (3.5-5.1); SODIUM 137 mmol/L (136-145)
[2017-08-27 07:38] LABS: GLUCOSE 59 mg/dL (74-118)
[2017-08-27] MEDS ORDERED: NYSTATIN 15 GM POWDER UD BTL TOP SCH (09:00)
[2017-08-27] MEDS: CYANOCOBALAMIN 1,000 MCG TAB PO SCH (09:27)
[2017-08-27] MEDS: SERTRALINE HCL 50 MG TAB PO SCH (09:27)
[2017-08-27] MEDS: ASPIRIN 81 MG ENTERIC COATED PO SCH (09:27)
[2017-08-27] MEDS: PANTOPRAZOLE 40 MG 10ML VIAL IV SCH (09:27)
[2017-08-27] MEDS: FERROUS SULFATE 325 MG TAB PO SCH (09:27)
[2017-08-27] MEDS: TIZANIDINE HCL 4 MG TAB PO SCH ×2 (09:27→17:05)
[2017-08-27] MEDS: FUROSEMIDE INJ 10 MG/ML 4 ML VIAL IV SCH ×3 (09:27→22:27)
[2017-08-27] MEDS: ACETAMINOPHEN/CODEINE 300MG - 30MG TAB PO SCH ×4 (09:27→22:27)
[2017-08-27] MEDS: METOPROLOL SUCCINATE 25 MG TAB XL PO SCH ×2 (09:28→17:05)
[2017-08-27] MEDS: HYDRALAZINE HCL 25 MG TAB PO SCH ×2 (09:28→17:05)
[2017-08-27] MEDS: METOLAZONE 5 MG TAB PO SCH (10:54)
[2017-08-27] MEDS: SODIUM CHLORIDE 0.9% 1000ML 1,000 ML IV SCH ×2 (12:45→22:45)
[2017-08-27] MEDS: ACETAMINOPHEN 325 MG TAB PO PRN (14:21)
--- NOTE | 2017-08-27 15:30 | Diagnostic Imaging Report ---
Examination: CT BRAIN WITHOUT CONTRAST History:Confusion; altered mental status. Comparison studies:Head CT performed November 26, 2014. Technique: Axial images were obtained from the skull base to the vertex. Coronal and sagittal images reconstructed from the axial data. Intravenous contrast: None Findings: Scalp: No abnormalities. Bones: No fractures, blastic or lytic lesions. Brain sulci: Mild volume loss for age. Ventricles: No hydrocephalus. Extra-axial space: No abnormalities. Parenchyma: There are new mild confluent areas of hypoattenuation in the periventricular and subcortical white matter, nonspecific. No masses, hemorrhage, or acute or chronic cortical based vascular insults. Sellar/suprasellar region: No abnormalities. Craniocervical junction: Patent foramen magnum. No Chiari one malformation. Incidental findings: Retention cyst in the left maxillary sinus, new from prior exam. Atherosclerotic calcification of the cavernous and supraclinoid internal carotid and V4 segments of the bilateral vertebral arteries. Impression: 1. No new acute intraparenchymal or extra-axial hemorrhage or acute cortical based infarct. 2. New mild chronic microvascular ischemic change when compared to prior head CT performed November 26, 2014. 3. Unchanged mild volume loss. Signed by: Dr. Susan Blevins M.D. on 08/27/2017 3:26 PM
[2017-08-27] MEDS ORDERED: LEVETIRACETAM 500 MG TAB PO SCH (21:00)
[2017-08-27] MEDS: AMLODIPINE BESYLATE 10 MG TAB PO SCH (22:27)
[2017-08-27] MEDS: TRAZODONE HCL 50 MG TAB PO SCH (22:27)
[2017-08-27] MEDS: DONEPEZIL HCL 5 MG TAB PO SCH (22:27)
[2017-08-28] VITALS (10 sets, daily range): BP systolic 124–163; BP diastolic 57–70
[2017-08-28] MEDS: FUROSEMIDE INJ 10 MG/ML 4 ML VIAL IV SCH ×2 (03:26→08:30)
[2017-08-28] MEDS: SALMETEROL/FLUTICASONE 500/50 INH SCH ×2 (07:00→19:00)
[2017-08-28 07:35] LABS: ALBUMIN 1.8 g/dL (3.5-5.0); ALBUMIN/GLOBULIN RATIO 0.6 (0.8-2.0); ANION GAP 12.8 mmol/L (8-16); CALCIUM 7.9 mg/dL (8.4-10.2); CREATININE, SERUM 2.74 mg/dL (0.57-1.11); POTASSIUM 3.8 mmol/L (3.5-5.1)
[2017-08-28] MEDS: FERROUS SULFATE 325 MG TAB PO SCH (08:30)
[2017-08-28] MEDS: CYANOCOBALAMIN 1,000 MCG TAB PO SCH (08:30)
[2017-08-28] MEDS: HYDRALAZINE HCL 25 MG TAB PO SCH ×2 (08:30→17:00)
[2017-08-28] MEDS: TIZANIDINE HCL 4 MG TAB PO SCH ×2 (08:30→17:00)
[2017-08-28] MEDS: SERTRALINE HCL 50 MG TAB PO SCH (08:30)
[2017-08-28] MEDS: PANTOPRAZOLE 40 MG 10ML VIAL IV SCH (08:30)
[2017-08-28] MEDS: ASPIRIN 81 MG ENTERIC COATED PO SCH (08:30)
[2017-08-28] MEDS: METOLAZONE 5 MG TAB PO SCH (08:30)
[2017-08-28] MEDS ORDERED: KEPPRA500 MG PO (08:59)
[2017-08-28] MEDS ORDERED: LEVETIRACETAM500 MG PO (08:59)
[2017-08-28] MEDS ORDERED: MIRTAZAPINE15 MG PO (08:59)
[2017-08-28] MEDS ORDERED: FOLIC ACID1 MG PO (08:59)
[2017-08-28] MEDS ORDERED: ZOFRAN ODT4 MG PO (08:59)
[2017-08-28] MEDS ORDERED: STOOL SOFTENER100 MG PO (08:59)
[2017-08-28] MEDS ORDERED: ULTRAM50 MG PO (08:59)
[2017-08-28] MEDS ORDERED: LEVOTHYROXINE50 MCG PO (08:59)
[2017-08-28] MEDS ORDERED: LEVETIRACETAM 500 MG TAB PO SCH (09:00)
[2017-08-28] MEDS ORDERED: TRAMADOL HCL 50 MG TAB PO PRN (09:15)
[2017-08-28] MEDS ORDERED: ACETAMINOPHEN/CODEINE 300MG - 30MG TAB PO PRN (09:30)
--- NOTE | 2017-08-28 14:06 | Consultation ---
DATE OF CONSULTATION: August 27, 2017 NEUROLOGICAL CONSULTATION Patient of Dr. Juan Palacios. Neurological consultation has been requested because of altered mental changes in the last 2-3 days. This patient was hospitalized here because of shortness of breath and possible pneumonia. I evaluated this patient for the first time and the only time in May 2017 for history of seizure. She has been on Keppra 500 mg twice a day. According to the daughter, she had 2 strokes, one in 2007 and 2014, as having this seizure, which characterized by solely staring to space, looking around, not answering questions, unresponsive for a couple of minutes, but she is being on Keppra, apparently still being well under control. At this time, the patient is being hospitalized for a week, being evaluated by Dr. Palacios and specialists including Dr. Peng Almodovar, Dr. Rodrigo Will, Dr. Galeas. The patient has past history of diabetes mellitus, hypertension, hepatitis C. She has history of 2 CVAs, asthma, cirrhosis of the liver, cervical cancer. She also has past history of back surgery, bladder surgery, hysterectomy, chronic pain syndrome. When we saw her in May, we ordered Keppra level, which was low, so we increased the dose to 750 mg at night and 500 mg in the morning. I have not seen this patient again until this time for this altered mental status. List of medications have been reviewed. She has been here for a week. She has not been taking the levetiracetam and the daughter says she gave a list of the medication including levetiracetam to the staff. So she has not been getting the 750 mg of Keppra at night that she has been taking. ALLERGIES: NONE. SOCIAL HISTORY: Noncontributory. REVIEW OF SYSTEMS: Patient unable to answer question because of the mental status. PHYSICAL EXAMINATION VITAL SIGNS: Blood pressure today is 152/59, pulse 78, temperature 98.4. GENERAL: Patient is morbidly obese, weighs 187 lbs. LUNGS: Clear to auscultation. ABDOMEN: Nontender. LOWER EXTREMITIES: No edema, no cyanosis. NEURO: She is very obtunded. On stimulation, she opens her eyes and look around. She is able to fix my eyes and poor stimulation. She is able to respond hi, able to follow commands, move the arms, move the legs. I asked to recognize her daughter's name, she does not recognize, also to what year. She is unsure about the year. She knows that she is in the hospital in [facility]. She denies any headaches. She denies any chest pain. She falls asleep very easily. On stimulation, she moves both arms and legs, symmetrically. No evidence of focal weakness. Plantar stimulation down bilaterally. Deep tendon reflexes: Triceps, biceps, 1+. Knee jerks absent bilaterally and ankle jerks. Plantar stimulation down bilaterally. HEAD: Normocephalic. NECK: Supple. Carotid pulsation were present bilaterally. There were no bruits. LABORATORY WORKUP: CBC shows a white count 8200 with hemoglobin 9, hematocrit 28.1, and platelets 138,000. Chemistry: Sodium 137, potassium 4.4, BUN 39, creatinine 2.64. Estimated GFR 18. Glucose today was 59, then went up to 138, 150, and 250. Liver enzymes are normal. Urinalysis, bacteria WBCs 0-5, lymphocytes negative. IMAGING: CT scan of the brain shows no new intraparenchymal or extra hemorrhagic or acute infarction, new microvascular ischemic changes, unchanged mild volume loss. IMPRESSIONS 1. Encephalopathic syndrome, multifactorial. 2. History of 2 strokes. 3. Seizure disorder, generalized partial complex type. 4. Hypertension. 5. Diabetes mellitus, type 2. 6. Renal failure. I have discussed with the daughter about the situation that we are going to talk to the nurse to the Keppra to take 750 mg at night and 500 mg in the morning. We are going to get MRI of the brain without contrast and will follow closely. Job#: [id number] CQ
[2017-08-28] MEDS: GABAPENTIN 300 MG CAP PO SCH ×2 (15:00→21:45)
--- NOTE | 2017-08-28 15:23 | Diagnostic Imaging Report ---
EXAMINATION: MRI of the brain without contrast. HISTORY: Altered mental status COMPARISON: Head CT on 08/27/2017 TECHNIQUE: Sagittal T2; axial DWI, T2, FLAIR, T1-IR, T2 gradient echo; coronal FLAIR. IMAGE QUALITY: Motion artifact on limited evaluation of most of the sequences.. FINDINGS: Parenchyma: 1. Mildly confluent periventricular white matter T2 hyperintense foci, most likely nonspecific chronic microvascular ischemic changes. 2. No mass, hemorrhage, acute or chronic infarcts. Skull: Unremarkable. Vessels: Expected flow voids present in the major arteries and dural sinuses. Extra-axial spaces: No abnormal signal intensity or mass effect. Brain volume: Mild generalized volume loss, within normal limits for age Ventricles: No hydrocephalus or displacement. Foramen magnum: Unremarkable. Sella: Unremarkable. Paranasal / mastoid sinuses: Opacification of the bilateral mastoid air cells. Mucosal inflammatory thickening and partial opacification of the right maxillary and right sphenoid sinuses, perhaps secretions or inflammatory process. IMPRESSION: 1. No acute infarct. 2. Mild chronic microvascular ischemic changes. 3. Mild generalized brain volume loss. 4. Partial opacification of the bilateral mastoid air cells and right sphenoid sinus again noted. Signed by: Dr. Chica Tran M.D. on 08/28/2017 3:20 PM
[2017-08-28] MEDS: METOPROLOL SUCCINATE 25 MG TAB XL PO SCH (17:00)
[2017-08-28] MEDS: FUROSEMIDE 40 MG TAB PO SCH (18:00)
[2017-08-28] MEDS: TRAZODONE HCL 50 MG TAB PO SCH (21:00)
[2017-08-28] MEDS: INSULIN ASPART 70/30 100 UNITS/ML VIAL SC SCH (21:30)
[2017-08-28] MEDS: AMLODIPINE BESYLATE 10 MG TAB PO SCH (21:45)
[2017-08-28] MEDS: MIRTAZAPINE 15 MG TAB PO SCH (21:45)
[2017-08-28] MEDS: DONEPEZIL HCL 5 MG TAB PO SCH (21:45)
[2017-08-28] MEDS: LEVETIRACETAM 500 MG TAB PO SCH (21:45)
[2017-08-28] MEDS: ATORVASTATIN 10 MG TAB PO SCH (21:45)
[2017-08-29] VITALS (8 sets, daily range): BP systolic 94–177; BP diastolic 47–77
[2017-08-29] MEDS: FUROSEMIDE 40 MG TAB PO SCH ×2 (06:00→18:00)
[2017-08-29] MEDS: INSULIN ASPART 70/30 100 UNITS/ML VIAL SC SCH ×3 (07:30→21:36)
[2017-08-29] MEDS: SALMETEROL/FLUTICASONE 500/50 INH SCH ×2 (07:30→19:35)
[2017-08-29] MEDS: LEVETIRACETAM 500 MG TAB PO SCH ×2 (09:00→21:35)
[2017-08-29] MEDS: ASPIRIN 81 MG ENTERIC COATED PO SCH (09:00)
[2017-08-29] MEDS: DOCUSATE SODIUM 100 MG CAP PO SCH (09:00)
[2017-08-29] MEDS: FERROUS SULFATE 325 MG TAB PO SCH (09:00)
[2017-08-29] MEDS: SERTRALINE HCL 50 MG TAB PO SCH (09:00)
[2017-08-29] MEDS: HYDRALAZINE HCL 25 MG TAB PO SCH ×2 (09:00→17:00)
[2017-08-29] MEDS: METOLAZONE 5 MG TAB PO SCH ×2 (09:00→11:00)
[2017-08-29] MEDS: FOLIC ACID 1 MG TAB PO SCH (09:00)
[2017-08-29] MEDS: METOPROLOL SUCCINATE 25 MG TAB XL PO SCH ×2 (09:00→17:00)
[2017-08-29] MEDS: GABAPENTIN 300 MG CAP PO SCH ×3 (09:00→21:34)
[2017-08-29] MEDS: LEVOTHYROXINE SODIUM 50 MCG TAB PO SCH (09:00)
[2017-08-29] MEDS: TIZANIDINE HCL 4 MG TAB PO SCH ×2 (09:00→17:00)
[2017-08-29] MEDS: PANTOPRAZOLE 40 MG 10ML VIAL IV SCH (09:00)
[2017-08-29] MEDS: CYANOCOBALAMIN 1,000 MCG TAB PO SCH (09:00)
[2017-08-29 11:08] LABS: ALBUMIN 1.6 g/dL (3.5-5.0); ALBUMIN/GLOBULIN RATIO 0.6 (0.8-2.0); ANION GAP 15.2 mmol/L (8-16); CALCIUM 7.6 mg/dL (8.4-10.2); CREATININE, SERUM 2.85 mg/dL (0.57-1.11)
[2017-08-29 11:10] LABS: POTASSIUM 5.2 mmol/L (3.5-5.1)
[2017-08-29] MEDS: MIRTAZAPINE 15 MG TAB PO SCH (21:34)
[2017-08-29] MEDS: ATORVASTATIN 10 MG TAB PO SCH (21:35)
[2017-08-29] MEDS: TRAZODONE HCL 50 MG TAB PO SCH (21:35)
[2017-08-29] MEDS: DONEPEZIL HCL 5 MG TAB PO SCH (21:35)
[2017-08-30] VITALS (9 sets, daily range): BP systolic 107–162; BP diastolic 46–88
[2017-08-30] MEDS: AMLODIPINE BESYLATE 10 MG TAB PO SCH ×2 (00:30→02:05)
[2017-08-30] MEDS ORDERED: MAGNESIUM HYDROXIDE 30 ML UDC PO ONE (04:30)
[2017-08-30] MEDS: FUROSEMIDE 40 MG TAB PO SCH ×2 (06:06→17:52)
[2017-08-30] MEDS: SALMETEROL/FLUTICASONE 500/50 INH SCH ×2 (08:20→19:53)
[2017-08-30] MEDS: SERTRALINE HCL 50 MG TAB PO SCH (08:45)
[2017-08-30] MEDS: LEVETIRACETAM 500 MG TAB PO SCH ×2 (08:45→21:27)
[2017-08-30] MEDS: PANTOPRAZOLE 40 MG 10ML VIAL IV SCH (08:45)
[2017-08-30] MEDS: TIZANIDINE HCL 4 MG TAB PO SCH ×2 (08:45→17:00)
[2017-08-30] MEDS: BALSAM PERU/CASTOR OIL 60 GM OINT...G. TP SCH ×2 (08:45→17:00)
[2017-08-30] MEDS: GABAPENTIN 300 MG CAP PO SCH ×3 (08:45→21:27)
[2017-08-30] MEDS: ASPIRIN 81 MG ENTERIC COATED PO SCH (08:45)
[2017-08-30] MEDS: FERROUS SULFATE 325 MG TAB PO SCH (08:45)
[2017-08-30] MEDS: METOPROLOL SUCCINATE 25 MG TAB XL PO SCH ×2 (08:45→17:00)
[2017-08-30] MEDS: DOCUSATE SODIUM 100 MG CAP PO SCH (08:45)
[2017-08-30] MEDS: METOLAZONE 5 MG TAB PO SCH (08:45)
[2017-08-30] MEDS: LEVOTHYROXINE SODIUM 50 MCG TAB PO SCH (08:45)
[2017-08-30] MEDS: FOLIC ACID 1 MG TAB PO SCH (08:45)
[2017-08-30] MEDS: CYANOCOBALAMIN 1,000 MCG TAB PO SCH (08:45)
[2017-08-30] MEDS: HYDRALAZINE HCL 25 MG TAB PO SCH ×2 (09:00→17:00)
[2017-08-30 12:58] LABS: BASOPHILS % 0.5 % (0.0-1.0); EOSINOPHILS # (AUTO) 0.3 (0.0-0.4); EOSINOPHILS % 4.2 % (0.0-6.0); HEMATOCRIT 26.1 % (34.2-44.1); HEMOGLOBIN 8.3 g/dL (12.0-16.0); LYMPHOCYTES # (AUTO) 1.4 (1.0-3.2); LYMPHOCYTES % 18.8 % (18.0-39.1); MEAN CORPUSCULAR HEMOGLOBIN 29.4 pg (28-32); MEAN CORPUSCULAR HGB CONC 31.8 g/dL (31-35); MEAN CORPUSCULAR VOLUME 92.6 fL (81-99); MONOCYTES # (AUTO) 0.5 (0.2-0.8); MONOCYTES % 6.6 % (4.4-11.3); NEUTROPHILS # (AUTO) 5.1 (2.1-6.9); NEUTROPHILS % 68.4 % (38.7-80.0); PLATELET COUNT 169 x10e3/uL (140-360); RED BLOOD COUNT 2.82 x10e6/uL (3.6-5.1); RED CELL DISTRIBUTION WIDTH 15.9 % (11.7-14.4)
[2017-08-30 13:19] LABS: ANION GAP 13.6 mmol/L (8-16); CALCIUM 7.5 mg/dL (8.4-10.2); CREATININE, SERUM 2.87 mg/dL (0.57-1.11); POTASSIUM 4.6 mmol/L (3.5-5.1)
[2017-08-30] MEDS: MIRTAZAPINE 15 MG TAB PO SCH (21:27)
[2017-08-30] MEDS: ATORVASTATIN 10 MG TAB PO SCH (21:27)
[2017-08-30] MEDS: TRAZODONE HCL 50 MG TAB PO SCH (21:27)
[2017-08-30] MEDS: DONEPEZIL HCL 5 MG TAB PO SCH (21:27)
[2017-08-30] MEDS: INSULIN ASPART 70/30 100 UNITS/ML VIAL SC SCH (22:22)
[2017-08-31] VITALS (7 sets, daily range): BP systolic 119–145; BP diastolic 56–63
[2017-08-31] MEDS: FUROSEMIDE 40 MG TAB PO SCH ×2 (06:23→17:22)
[2017-08-31 07:20] LABS: BASOPHILS # (AUTO) 0.1 (0.0-0.1); BASOPHILS % 0.7 % (0.0-1.0); EOSINOPHILS # (AUTO) 0.4 (0.0-0.4); EOSINOPHILS % 3.9 % (0.0-6.0); HEMATOCRIT 26.5 % (34.2-44.1); HEMOGLOBIN 8.5 g/dL (12.0-16.0); LYMPHOCYTES # (AUTO) 1.2 (1.0-3.2); LYMPHOCYTES % 13.4 % (18.0-39.1); MEAN CORPUSCULAR HGB CONC 32.1 g/dL (31-35); MEAN CORPUSCULAR VOLUME 93.6 fL (81-99); MONOCYTES # (AUTO) 0.8 (0.2-0.8); MONOCYTES % 8.6 % (4.4-11.3); NEUTROPHILS # (AUTO) 6.4 (2.1-6.9); NEUTROPHILS % 70.2 % (38.7-80.0); PLATELET COUNT 207 x10e3/uL (140-360); RED BLOOD COUNT 2.83 x10e6/uL (3.6-5.1); RED CELL DISTRIBUTION WIDTH 16.1 % (11.7-14.4)
[2017-08-31] MEDS: MAGNESIUM HYDROXIDE 30 ML UDC PO PRN (07:27)
[2017-08-31] MEDS: INSULIN ASPART 70/30 100 UNITS/ML VIAL SC SCH ×2 (07:30→22:13)
[2017-08-31 07:49] LABS: ALBUMIN 1.8 g/dL (3.5-5.0); ALBUMIN/GLOBULIN RATIO 0.5 (0.8-2.0); ANION GAP 14.6 mmol/L (8-16); CALCIUM 8.3 mg/dL (8.4-10.2); CREATININE, SERUM 2.92 mg/dL (0.57-1.11); POTASSIUM 4.6 mmol/L (3.5-5.1)
[2017-08-31] MEDS ORDERED: BISACODYL 10 MG SUPP PR ONE (08:30)
[2017-08-31] MEDS: ASPIRIN 81 MG ENTERIC COATED PO SCH (09:56)
[2017-08-31] MEDS: FLUCONAZOLE 100 MG TAB PO SCH (09:56)
[2017-08-31] MEDS: PANTOPRAZOLE 40 MG 10ML VIAL IV SCH (09:56)
[2017-08-31] MEDS: DOCUSATE SODIUM 100 MG CAP PO SCH (09:56)
[2017-08-31] MEDS: FERROUS SULFATE 325 MG TAB PO SCH (09:56)
[2017-08-31] MEDS: HYDRALAZINE HCL 25 MG TAB PO SCH ×2 (09:56→17:18)
[2017-08-31] MEDS: LEVETIRACETAM 500 MG TAB PO SCH ×2 (09:57→21:01)
[2017-08-31] MEDS: TIZANIDINE HCL 4 MG TAB PO SCH ×2 (09:57→17:22)
[2017-08-31] MEDS: GABAPENTIN 300 MG CAP PO SCH ×3 (09:57→21:01)
[2017-08-31] MEDS: BALSAM PERU/CASTOR OIL 60 GM OINT...G. TP SCH ×2 (09:57→17:22)
[2017-08-31] MEDS: METOLAZONE 5 MG TAB PO SCH (09:57)
[2017-08-31] MEDS: FOLIC ACID 1 MG TAB PO SCH (09:57)
[2017-08-31] MEDS: METOPROLOL SUCCINATE 25 MG TAB XL PO SCH ×2 (09:57→17:20)
[2017-08-31] MEDS: CYANOCOBALAMIN 1,000 MCG TAB PO SCH (09:57)
[2017-08-31] MEDS: SERTRALINE HCL 50 MG TAB PO SCH (09:57)
[2017-08-31] MEDS: LEVOTHYROXINE SODIUM 50 MCG TAB PO SCH (12:53)
[2017-08-31] MEDS: DONEPEZIL HCL 5 MG TAB PO SCH (21:00)
[2017-08-31] MEDS: AMLODIPINE BESYLATE 10 MG TAB PO SCH (21:00)
[2017-08-31] MEDS: ATORVASTATIN 10 MG TAB PO SCH (21:01)
[2017-08-31] MEDS: TRAZODONE HCL 50 MG TAB PO SCH (21:01)
[2017-08-31] MEDS: MIRTAZAPINE 15 MG TAB PO SCH (21:02)
[2017-08-31] MEDS: SALMETEROL/FLUTICASONE 500/50 INH SCH (21:45)
[2017-08-31] MEDS: ALBUTEROL/IPRATROPIUM 3 ML NEB NEB PRN (21:45)
[2017-09-01] VITALS (18 sets, daily range): BP systolic 71–166; BP diastolic 35–67
[2017-09-01] MEDS: FUROSEMIDE 40 MG TAB PO SCH (05:13)
[2017-09-01] MEDS: SALMETEROL/FLUTICASONE 500/50 INH SCH ×2 (07:00→19:41)
[2017-09-01] MEDS: INSULIN ASPART 70/30 100 UNITS/ML VIAL SC SCH ×2 (07:30→22:06)
[2017-09-01] MEDS: FOLIC ACID 1 MG TAB PO SCH (08:39)
[2017-09-01] MEDS: PANTOPRAZOLE 40 MG 10ML VIAL IV SCH (08:39)
[2017-09-01] MEDS: FERROUS SULFATE 325 MG TAB PO SCH (08:39)
[2017-09-01] MEDS: ASPIRIN 81 MG ENTERIC COATED PO SCH (08:39)
[2017-09-01] MEDS: LEVETIRACETAM 500 MG TAB PO SCH ×2 (08:39→22:05)
[2017-09-01] MEDS: HYDRALAZINE HCL 25 MG TAB PO SCH ×2 (08:39→16:27)
[2017-09-01] MEDS: FLUCONAZOLE 100 MG TAB PO SCH (08:39)
[2017-09-01] MEDS: DOCUSATE SODIUM 100 MG CAP PO SCH (08:39)
[2017-09-01] MEDS: GABAPENTIN 300 MG CAP PO SCH (08:39)
[2017-09-01] MEDS: METOPROLOL SUCCINATE 25 MG TAB XL PO SCH ×2 (08:40→16:27)
[2017-09-01] MEDS: CYANOCOBALAMIN 1,000 MCG TAB PO SCH (08:40)
[2017-09-01] MEDS: METOLAZONE 5 MG TAB PO SCH (08:40)
[2017-09-01] MEDS: TIZANIDINE HCL 4 MG TAB PO SCH (08:40)
[2017-09-01] MEDS: BALSAM PERU/CASTOR OIL 60 GM OINT...G. TP SCH ×2 (08:40→16:05)
[2017-09-01] MEDS: SERTRALINE HCL 50 MG TAB PO SCH (08:40)
[2017-09-01] MEDS ORDERED: FUROSEMIDE INJ 10 MG/ML 4 ML VIAL IV STA (10:06)
[2017-09-01] MEDS ORDERED: AMPICILLIN SOD/SULBACTAM 1.5GM 1.5 G in AMPICILLIN SOD/SULBACTAM 1.5GM 50 ML IV SCH (10:30)
[2017-09-01] MEDS: ALBUTEROL/IPRATROPIUM 3 ML NEB NEB PRN (10:34)
[2017-09-01 10:37] LABS: ABG HCO3 28 mmol/L (23-28); ABG PCO2 72 mmHg (41-51); ABG PO2 81 mmHg (80-105)
--- NOTE | 2017-09-01 10:52 | Diagnostic Imaging Report ---
PROCEDURE:CHEST SINGLE (PORTABLE) COMPARISON:Chest x-ray 08/20/17 INDICATIONS:CHF, EXACERBATION FINDINGS: LUNGS:Diffuse groundglass airspace opacities have developed with prominence of the pulmonary vasculature and bibasilar consolidation. CARDIAC:Normal size cardiac silhouette. MEDIASTINUM:Normal. PLEURA:Costophrenic angles are blunted. No pneumothorax. BONES:Normal for age. CONCLUSION: Pulmonary edema and bilateral pleural effusions. Bibasilar airspace opacities could be due to atelectasis or infiltrate. Dictated by: Angela Monzon M.D. on 09/01/2017 at 10:53 Electronically approved by: Angela Monzon M.D. on 09/01/2017 at 10:53
[2017-09-01] MEDS: LORATADINE 10 MG TAB PO SCH (11:02)
--- NOTE | 2017-09-01 11:13 | Consultation ---
DATE OF CONSULTATION: September 01, 2017 PULMONARY CONSULTATION I was called by Dr. Galeas to evaluate the patient for shortness of breath. HPI: Ms. Bingham is a 72-year-old female who was admitted initially by Dr. Juan Palacios with shortness of breath. Patient was at [facility] for pneumonia, and she was given Lasix. The patient was in fluid overload on admission, and nephrology and cardiology were consulted. Patient was diuresed. Patient started feeling better. Today, she was somnolent, lethargic and confused. When I saw the patient, she was unable to give me any history. Daughter was at the bedside. She was on Zanaflex, gabapentin, IV fluids at 100 cc an hour, Keppra, Remeron, and trazodone. Patient has sinus problems as well per the daughter, and a brain MRI was done, which actually showed evidence of partial opacification of bilateral mastoid air cells and right sphenoid sinus as well, and she has increasing drainage. She denies any chest pain, nausea, vomiting, or diarrhea. REVIEW OF SYSTEMS: Unable to elicit a detailed review of systems because of the patient's mental status. PAST MEDICAL HISTORY: Congestive heart failure, CKD, asthma, cirrhosis of liver, cervical cancer, hepatitis C. PAST SURGICAL HISTORY: Back surgery, bladder surgery, hysterectomy. FAMILY AND SOCIAL HISTORY: She does not smoke, does not drink. PHYSICAL EXAMINATION VITAL SIGNS: Temperature 96.7. Pulse of 65. Blood pressure was 166/67. O2 sat was 89% to 90% on nonrebreather, and she got a breathing treatment. HEENT: Head atraumatic, normocephalic. Pupils are reactive. She is confused. Oral mucosa is dry. LUNGS: Poor respiratory effort. Decreased air entry bilaterally. HEART: S1, S2 audible. ABDOMEN: Soft, nontender nondistended. EXTREMITIES: Trace pedal edema. NEUROLOGIC: Confused. No focal neurological deficit. LABS: White count of 9000, hemoglobin 8.5, platelets 207. Chemistry: Sodium 134, potassium 4.6, chloride 98, BUN 52, creatinine 2.92. Creatinine was 2.06 when she came in on the . She was on Lasix and metolazone. No new chest x-ray. The last chest x-ray is from 08/21/2017, which is showing just some increased congestion. The lower cuts of CT abdomen are showing evidence of atelectasis and pleural effusion. Stat ABG was done, which showed pH of 7.20, pCO2 of 72, pO2 of 81, O2 sat 92%. Chest x-ray is still pending. ASSESSMENT: Ms. Bingham is a 72-year-old female who presented with fluid overload and chronic kidney disease. Has history of asthma. Currently she is in carbon dioxide narcosis with acute hypercapnic respiratory failure. PLAN: 1. Will follow the chest x-ray results and review the chest x-ray films. 2. Discussed with Dr. Galeas. I will stop the patient's gabapentin, trazodone, and Zanaflex as these medications may be causing increasing somnolence and hypoventilation resulting in hypercapnia. 3. Nebulizer treatment will be started. 4. Patient has sinus drainage, and MRI showed evidence of sinusitis. I will start the patient on Claritin and IV Unasyn at this point. Also, will start on Flonase nasal spray. Transfer the patient to [facility]. 5. Discussed with Dr. Galeas. Will change the Lasix to IV and continue the metolazone. Critical care time spent 45 minutes. Thank you for this consult. Job#: [id number]
[2017-09-01] MEDS: AMPICILLIN SOD/SULBACTAM 1.5GM 1.5 G in AMPICILLIN SOD/SULBACTAM 1.5GM 50 ML IV SCH ×2 (12:54→23:57)
[2017-09-01] MEDS: LEVOTHYROXINE SODIUM 50 MCG TAB PO SCH (12:54)
[2017-09-01] MEDS: FLUTICASONE PROPIONATE NASAL SPRAY NS SCH ×2 (13:27→16:27)
[2017-09-01] MEDS: FUROSEMIDE INJ 10 MG/ML 4 ML VIAL IV SCH (21:00)
[2017-09-01] MEDS: ATORVASTATIN 10 MG TAB PO SCH (22:05)
[2017-09-01] MEDS ORDERED: SODIUM CHLORIDE 0.9% 250ML 250 ML ONE (23:47)
[2017-09-02] VITALS (9 sets, daily range): BP systolic 84–152; BP diastolic 31–65
[2017-09-02 06:08] LABS: BASOPHILS # (AUTO) 0.1 (0.0-0.1); BASOPHILS % 0.7 % (0.0-1.0); EOSINOPHILS # (AUTO) 0.2 (0.0-0.4); EOSINOPHILS % 2.6 % (0.0-6.0); HEMATOCRIT 26.7 % (34.2-44.1); HEMOGLOBIN 8.5 g/dL (12.0-16.0); LYMPHOCYTES % 10.9 % (18.0-39.1); MEAN CORPUSCULAR HEMOGLOBIN 30.1 pg (28-32); MEAN CORPUSCULAR HGB CONC 31.8 g/dL (31-35); MEAN CORPUSCULAR VOLUME 94.7 fL (81-99); MONOCYTES # (AUTO) 0.6 (0.2-0.8); MONOCYTES % 6.4 % (4.4-11.3); NEUTROPHILS # (AUTO) 6.6 (2.1-6.9); NEUTROPHILS % 73.4 % (38.7-80.0); PLATELET COUNT 245 x10e3/uL (140-360); RED BLOOD COUNT 2.82 x10e6/uL (3.6-5.1)
[2017-09-02 06:32] LABS: ALBUMIN 1.9 g/dL (3.5-5.0); ALBUMIN/GLOBULIN RATIO 0.6 (0.8-2.0); ANION GAP 12.1 mmol/L (8-16); CALCIUM 8.5 mg/dL (8.4-10.2); CREATININE, SERUM 3.17 mg/dL (0.57-1.11); POTASSIUM 5.1 mmol/L (3.5-5.1)
--- NOTE | 2017-09-02 06:57 | Diagnostic Imaging Report ---
EXAMINATION: CHEST SINGLE (PORTABLE) INDICATION: Congestive heart failure COMPARISON: 09/01/2017 FINDINGS: TUBES and LINES: None. LUNGS: Lungs are not well inflated. There are bibasilar atelectasis. There is perihilar interstitial opacities, consistent with interstitial edema. PLEURA: Small bilateral pleural effusions HEART AND MEDIASTINUM: Cardiac size is mildly enlarged. BONES AND SOFT TISSUES: No acute osseous lesion. Soft tissues are unremarkable. UPPER ABDOMEN: No free air under the diaphragm. IMPRESSION: Persistent cardiogenic pulmonary edema and small bilateral pleural effusions Signed by: Dr. Blaine Meyers M.D. on 09/02/2017 6:54 AM
[2017-09-02] MEDS: SALMETEROL/FLUTICASONE 500/50 INH SCH ×2 (07:00→19:00)
[2017-09-02] MEDS: INSULIN ASPART 70/30 100 UNITS/ML VIAL SC SCH ×2 (07:30→21:00)
[2017-09-02 08:42] LABS: EOSINOPHILS % (MANUAL) 4 % (0-7); LYMPHOCYTES % (MANUAL) 12 % (19-48); METAMYELOCYTES % (MANUAL) 2 % (0-0); MONOCYTES % (MANUAL) 5 % (3.4-9.0); NEUTROPHILS % (MANUAL) 77 % (40-74)
[2017-09-02 08:43] LABS: ANISOCYTOSIS SLIGHT; HYPOCHROMASIA MODERATE; PLATELET ESTIMATE ADEQUATE; PLATELET MORPHOLOGY COMMENT FEW LARGE; RBC MORPHOLOGY COMMENT NORMAL
[2017-09-02] MEDS: LEVOTHYROXINE SODIUM 50 MCG TAB PO SCH ×2 (09:00→14:49)
[2017-09-02] MEDS: FUROSEMIDE INJ 10 MG/ML 4 ML VIAL IV SCH ×2 (09:18→22:02)
[2017-09-02] MEDS: PANTOPRAZOLE 40 MG 10ML VIAL IV SCH (09:18)
[2017-09-02] MEDS: SERTRALINE HCL 50 MG TAB PO SCH (09:18)
[2017-09-02] MEDS: HYDRALAZINE HCL 25 MG TAB PO SCH ×2 (09:18→17:11)
[2017-09-02] MEDS: CYANOCOBALAMIN 1,000 MCG TAB PO SCH (09:18)
[2017-09-02] MEDS: FLUTICASONE PROPIONATE NASAL SPRAY NS SCH ×2 (09:18→17:11)
[2017-09-02] MEDS: FLUCONAZOLE 100 MG TAB PO SCH (09:18)
[2017-09-02] MEDS: ASPIRIN 81 MG ENTERIC COATED PO SCH (09:18)
[2017-09-02] MEDS: METOLAZONE 5 MG TAB PO SCH (09:18)
[2017-09-02] MEDS: FOLIC ACID 1 MG TAB PO SCH (09:18)
[2017-09-02] MEDS: METOPROLOL SUCCINATE 25 MG TAB XL PO SCH ×2 (09:18→17:11)
[2017-09-02] MEDS: LORATADINE 10 MG TAB PO SCH (09:18)
[2017-09-02] MEDS: DOCUSATE SODIUM 100 MG CAP PO SCH (09:18)
[2017-09-02] MEDS: LEVETIRACETAM 500 MG TAB PO SCH ×2 (09:18→22:02)
[2017-09-02] MEDS: BALSAM PERU/CASTOR OIL 60 GM OINT...G. TP SCH ×2 (09:19→17:11)
[2017-09-02] MEDS: AMPICILLIN SOD/SULBACTAM 1.5GM 1.5 G in AMPICILLIN SOD/SULBACTAM 1.5GM 50 ML IV SCH (12:05)
[2017-09-02] MEDS ORDERED: SOD POLYSTYRENE SULFONATE SUSP 15 GM/60 ML BTL PO NR (14:30)
[2017-09-02] MEDS: PIPER-TAZ 3.375 GM 50 ML IV SCH (16:04)
[2017-09-02 17:10] LABS: ABG PH 7.28 (7.31-7.41)
[2017-09-02 17:11] LABS: ABG HCO3 31 mmol/L (23-28); ABG PCO2 65 mmHg (41-51); ABG PO2 110 mmHg (80-105)
[2017-09-02] MEDS: ALBUTEROL/IPRATROPIUM 3 ML NEB NEB PRN (17:48)
[2017-09-02] MEDS: ATORVASTATIN 10 MG TAB PO SCH (22:02)
[2017-09-02] MEDS ORDERED: LORAZEPAM 0.5 MG TAB PO PRN (22:30)
[2017-09-02] MEDS ORDERED: RISPERIDONE 0.5 MG TAB PO PRN (22:30)
[2017-09-03] VITALS (7 sets, daily range): BP systolic 105–150; BP diastolic 39–63
--- NOTE | 2017-09-03 00:54 | Consultation ---
DATE OF CONSULTATION: September 02, 2017 PSYCHIATRIC INITIAL EVALUATION HISTORY OF PRESENTING ILLNESS: Patient is a 72-year-old female, who was admitted to the medical floor. Psychiatric consult is called to evaluate patient's mood, anxiety, and confusion. Upon evaluation today, patient is found to be lying on her bed. She has psychomotor retardation, but she is cooperative. She states that she is feeling increasingly depressed and anxious because of her ongoing medical health issues and current hospitalization. She sometimes feels hopeless and helpless. She also reports intermittent confusion. She denies any hallucinations and/or any suicidal ideation at this time. Full information is obtained from her daughter, who was present in the room during this assessment. She reports that patient has history of dementia. She has been intermittently confused. She is also feeling depressed because of her ongoing medical health issues and her inability to take care of herself. Patient has not been hallucinating and patient is not agitated. PAST PSYCHIATRIC HISTORY: Patient has history of dementia and mood disorder. She has never attempted any suicide. She does not drink alcohol. FAMILY HISTORY: Patient does not have any family history of psychiatric illness. SOCIAL HISTORY: Patient currently lives with her daughter. CURRENT LABS: WBC 8.96, hemoglobin 8.5, hematocrit 26.7, platelets 245,000. Sodium 134, potassium 5.1, chloride 97, carbon dioxide 30, BUN 56, creatinine 3.1. AST 12, ALT 8, alkaline phosphatase 45. CURRENT MEDICATIONS 1. Albuterol. 2. Aspirin. 3. Lipitor. 4. Vitamin B12. 5. Colace. 6. Aricept 10 mg p.o. nightly. 7. Ferrous sulfate. 8. Folic acid. 9. Lasix. 10. Insulin. 11. Keppra. MENTAL STATUS EXAMINATION: Patient is an elderly female, who is currently lying on her bed. She is alert, awake, oriented to situation. Her mood is depressed and dysphoric with blunted affect. She denies any suicidal or homicidal ideation at present. She denies any abnormal perception at present. No delusions are elicited. Her thought process is goal directed. Insight and judgment are limited. DIAGNOSES 1. B[place] I: Unspecified dementia with behavioral disturbances. 2. B[place] II: Major depressive disorder, recurrent, moderate. PLAN 1. Add p.r.n. Risperdal for intermittent confusion. 2. Continue Aricept. 3. Add p.r.n. Ativan 0.5 mg q.8 h. 4. Continue to hold Zoloft for now since patient is on IV antibiotics. 1. Supportive therapy. Job#: [id number] CQ
[2017-09-03 06:04] LABS: BASOPHILS # (AUTO) 0.1 (0.0-0.1); BASOPHILS % 0.8 % (0.0-1.0); EOSINOPHILS # (AUTO) 0.3 (0.0-0.4); EOSINOPHILS % 3.7 % (0.0-6.0); HEMATOCRIT 27.5 % (34.2-44.1); HEMOGLOBIN 8.6 g/dL (12.0-16.0); LYMPHOCYTES # (AUTO) 1.4 (1.0-3.2); LYMPHOCYTES % 15.6 % (18.0-39.1); MEAN CORPUSCULAR HEMOGLOBIN 29.8 pg (28-32); MEAN CORPUSCULAR HGB CONC 31.3 g/dL (31-35); MEAN CORPUSCULAR VOLUME 95.2 fL (81-99); MONOCYTES # (AUTO) 0.7 (0.2-0.8); MONOCYTES % 7.5 % (4.4-11.3); NEUTROPHILS # (AUTO) 5.9 (2.1-6.9); NEUTROPHILS % 65.1 % (38.7-80.0); PLATELET COUNT 245 x10e3/uL (140-360); RED BLOOD COUNT 2.89 x10e6/uL (3.6-5.1); RED CELL DISTRIBUTION WIDTH 16.1 % (11.7-14.4)
[2017-09-03] MEDS: LEVOTHYROXINE SODIUM 50 MCG TAB PO SCH (06:05)
[2017-09-03 06:44] LABS: ANION GAP 13.3 mmol/L (8-16); CALCIUM 8.5 mg/dL (8.4-10.2); CREATININE, SERUM 3.09 mg/dL (0.57-1.11); POTASSIUM 4.3 mmol/L (3.5-5.1)
[2017-09-03] MEDS: SALMETEROL/FLUTICASONE 500/50 INH SCH (07:00)
[2017-09-03] MEDS: BALSAM PERU/CASTOR OIL 60 GM OINT...G. TP SCH ×2 (08:00→17:00)
[2017-09-03] MEDS: INSULIN ASPART 70/30 100 UNITS/ML VIAL SC SCH ×2 (08:00→21:00)
[2017-09-03 08:24] LABS: BLAST CELLS % MANUAL 2; EOSINOPHILS % (MANUAL) 7 % (0-7); LYMPHOCYTES % (MANUAL) 24 % (19-48); METAMYELOCYTES % (MANUAL) 2 % (0-0); MONOCYTES % (MANUAL) 4 % (3.4-9.0); MYELOCYTES % (MANUAL) 1 % (0-0); NEUTROPHILS % (MANUAL) 60 % (40-74)
[2017-09-03 08:27] LABS: ANISOCYTOSIS SLIGHT; HYPOCHROMASIA SLIGHT; PLATELET ESTIMATE ADEQUATE; PLATELET MORPHOLOGY COMMENT NORMAL; RBC MORPHOLOGY COMMENT NORMAL
[2017-09-03] MEDS: PIPER-TAZ 3.375 GM 50 ML IV SCH ×3 (08:40→17:35)
[2017-09-03] MEDS: FLUTICASONE PROPIONATE NASAL SPRAY NS SCH ×2 (09:00→17:35)
[2017-09-03] MEDS: PANTOPRAZOLE 40 MG 10ML VIAL IV SCH (09:10)
[2017-09-03] MEDS: DOCUSATE SODIUM 100 MG CAP PO SCH (09:10)
[2017-09-03] MEDS: HYDRALAZINE HCL 25 MG TAB PO SCH ×2 (09:10→17:35)
[2017-09-03] MEDS: ASPIRIN 81 MG ENTERIC COATED PO SCH (09:10)
[2017-09-03] MEDS: FUROSEMIDE INJ 10 MG/ML 4 ML VIAL IV SCH ×2 (09:10→21:18)
[2017-09-03] MEDS: METOPROLOL SUCCINATE 25 MG TAB XL PO SCH ×2 (09:11→17:34)
[2017-09-03] MEDS: LEVETIRACETAM 500 MG TAB PO SCH ×2 (09:11→21:18)
[2017-09-03] MEDS: METOLAZONE 5 MG TAB PO SCH (09:11)
[2017-09-03] MEDS: CYANOCOBALAMIN 1,000 MCG TAB PO SCH (09:11)
[2017-09-03] MEDS: FLUCONAZOLE 100 MG TAB PO SCH (09:11)
[2017-09-03] MEDS: FOLIC ACID 1 MG TAB PO SCH (09:11)
--- NOTE | 2017-09-03 10:07 | Diagnostic Imaging Report ---
PROCEDURE: CHEST SINGLE (PORTABLE) COMPARISON: 09/02/2017. INDICATIONS: SOB, CHF FINDINGS: The patient is rotated to the right. When accounting for differences in technique, no appreciable interval change in perihilar interstitial opacities and small bilateral pleural effusions. Stable cardiomediastinal contour. No new consolidation. No acute osseous abnormality. CONCLUSION: Stable interstitial pulmonary edema and small bilateral pleural effusions relative to 09/02/2017. Dictated by: Rodrigo Alonso M.D. on 09/03/2017 at 10:08 Electronically approved by: Rodrigo Alonso M.D. on 09/03/2017 at 10:08
[2017-09-03] MEDS ORDERED: DIPHENHYDRAMINE HCL 30 GM TUBE TOP PRN (14:15)
--- NOTE | 2017-09-03 16:06 | Progress Note ---
DATE: September 03, 2017 PSYCHIATRIC PROGRESS NOTE Patient evaluated and events noted. Patient was found to be in the room. She is alert, awake, and oriented to situation. She is but doing better. She is not combative or agitated. She does not need any p.r.n. p.o. or IM medications. She denies any depression. She denies any hallucinations. Her daughter is in the room. Collaborated from the daughter, who reported the patient is doing fairly okay. She is improving. She is taking Zoloft at home for anxiety. She has a history of dementia. The patient is on Keppra. Risperdal p.r.n. has been discontinued. Ativan p.r.n. has also been discontinued. Will continue to monitor her. She is currently not on Aricept at this time. It has been placed on hold. No suicide affect seen. Dictated by: CHIVO Christie Job#: [id number]
[2017-09-03] MEDS: ATORVASTATIN 10 MG TAB PO SCH (21:18)
[2017-09-04] VITALS (8 sets, daily range): BP systolic 118–151; BP diastolic 60–80
[2017-09-04] MEDS: PIPER-TAZ 3.375 GM 50 ML IV SCH ×3 (00:11→16:53)
[2017-09-04] MEDS ORDERED: QUETIAPINE FUMARATE 25 MG TAB PO SCH (00:37)
[2017-09-04] MEDS: LEVOTHYROXINE SODIUM 50 MCG TAB PO SCH (05:33)
[2017-09-04 06:26] LABS: BASOPHILS # (AUTO) 0.1 (0.0-0.1); BASOPHILS % 0.9 % (0.0-1.0); EOSINOPHILS # (AUTO) 0.2 (0.0-0.4); EOSINOPHILS % 2.1 % (0.0-6.0); HEMOGLOBIN 8.6 g/dL (12.0-16.0); LYMPHOCYTES # (AUTO) 0.9 (1.0-3.2); LYMPHOCYTES % 11.5 % (18.0-39.1); MEAN CORPUSCULAR HEMOGLOBIN 29.9 pg (28-32); MEAN CORPUSCULAR HGB CONC 31.9 g/dL (31-35); MEAN CORPUSCULAR VOLUME 93.8 fL (81-99); MONOCYTES # (AUTO) 0.5 (0.2-0.8); MONOCYTES % 5.7 % (4.4-11.3); NEUTROPHILS # (AUTO) 5.9 (2.1-6.9); PLATELET COUNT 210 x10e3/uL (140-360); RED BLOOD COUNT 2.88 x10e6/uL (3.6-5.1)
[2017-09-04 06:52] LABS: CALCIUM 8.5 mg/dL (8.4-10.2); CREATININE, SERUM 2.96 mg/dL (0.57-1.11)
[2017-09-04] MEDS: SALMETEROL/FLUTICASONE 500/50 INH SCH ×2 (08:00→20:33)
[2017-09-04] MEDS: FOLIC ACID 1 MG TAB PO SCH (08:38)
[2017-09-04] MEDS: FLUTICASONE PROPIONATE NASAL SPRAY NS SCH ×2 (08:38→16:54)
[2017-09-04] MEDS: DOCUSATE SODIUM 100 MG CAP PO SCH (08:38)
[2017-09-04] MEDS: CYANOCOBALAMIN 1,000 MCG TAB PO SCH (08:38)
[2017-09-04] MEDS: HYDRALAZINE HCL 25 MG TAB PO SCH ×2 (08:38→16:54)
[2017-09-04] MEDS: PANTOPRAZOLE 40 MG 10ML VIAL IV SCH (08:38)
[2017-09-04] MEDS: FUROSEMIDE INJ 10 MG/ML 4 ML VIAL IV SCH ×2 (08:38→20:25)
[2017-09-04] MEDS: LEVETIRACETAM 500 MG TAB PO SCH ×2 (08:38→20:25)
[2017-09-04] MEDS: BALSAM PERU/CASTOR OIL 60 GM OINT...G. TP SCH ×2 (08:38→16:17)
[2017-09-04] MEDS: METOPROLOL SUCCINATE 25 MG TAB XL PO SCH ×2 (08:38→16:54)
[2017-09-04] MEDS: ASPIRIN 81 MG ENTERIC COATED PO SCH (08:38)
[2017-09-04] MEDS: INSULIN ASPART 70/30 100 UNITS/ML VIAL SC SCH ×2 (08:39→20:26)
[2017-09-04 08:40] LABS: ANISOCYTOSIS SLIG; BAND NEUTROPHILS % (MANUAL) 1 %; EOSINOPHILS % (MANUAL) 2 % (0-7); LYMPHOCYTES % (MANUAL) 13 % (19-48); METAMYELOCYTES % (MANUAL) 4 % (0-0); NEUTROPHILS % (MANUAL) 80 % (40-74); PLATELET ESTIMATE ADEQUATE; PLATELET MORPHOLOGY COMMENT NORMAL; POIKILOCYTOSIS SLIGHT; RBC MORPHOLOGY COMMENT NORMAL
[2017-09-04] MEDS: QUETIAPINE FUMARATE 25 MG TAB PO PRN ×2 (09:12→18:15)
[2017-09-04] MEDS: METOLAZONE 5 MG TAB PO SCH (09:12)
[2017-09-04] MEDS: NITROGLYCERIN 0.4 MG SUBL SL PRN (18:29)
[2017-09-04] MEDS: ACETAMINOPHEN 325 MG TAB PO PRN (20:09)
[2017-09-04] MEDS: ATORVASTATIN 10 MG TAB PO SCH (20:26)
[2017-09-04] MEDS: ALBUTEROL/IPRATROPIUM 3 ML NEB NEB PRN ×2 (20:40→23:40)
[2017-09-05] MEDS: QUETIAPINE FUMARATE 25 MG TAB PO PRN ×2 (00:20→21:26)
[2017-09-05] MEDS: PIPER-TAZ 3.375 GM 50 ML IV SCH ×3 (00:20→16:47)
[2017-09-05] MEDS: LEVOTHYROXINE SODIUM 50 MCG TAB PO SCH (06:00)
[2017-09-05 06:05] LABS: BASOPHILS # (AUTO) 0.1 (0.0-0.1); BASOPHILS % 0.7 % (0.0-1.0); EOSINOPHILS # (AUTO) 0.3 (0.0-0.4); EOSINOPHILS % 3.8 % (0.0-6.0); HEMATOCRIT 26.7 % (34.2-44.1); HEMOGLOBIN 8.5 g/dL (12.0-16.0); LYMPHOCYTES # (AUTO) 0.9 (1.0-3.2); LYMPHOCYTES % 12.6 % (18.0-39.1); MEAN CORPUSCULAR HGB CONC 31.8 g/dL (31-35); MEAN CORPUSCULAR VOLUME 94.3 fL (81-99); MONOCYTES # (AUTO) 0.5 (0.2-0.8); MONOCYTES % 7.1 % (4.4-11.3); NEUTROPHILS # (AUTO) 4.9 (2.1-6.9); NEUTROPHILS % 71.2 % (38.7-80.0); PLATELET COUNT 148 x10e3/uL (140-360); RED BLOOD COUNT 2.83 x10e6/uL (3.6-5.1); RED CELL DISTRIBUTION WIDTH 15.9 % (11.7-14.4)
[2017-09-05 06:19] LABS: ANION GAP 12.9 mmol/L (8-16); CALCIUM 8.3 mg/dL (8.4-10.2); CREATININE, SERUM 2.89 mg/dL (0.57-1.11); POTASSIUM 3.9 mmol/L (3.5-5.1)
[2017-09-05 07:30] VITALS: BP 164/84
[2017-09-05] MEDS: INSULIN ASPART 70/30 100 UNITS/ML VIAL SC SCH ×2 (07:30→22:11)
[2017-09-05] MEDS: SALMETEROL/FLUTICASONE 500/50 INH SCH ×2 (08:20→19:00)
[2017-09-05] MEDS: FLUTICASONE PROPIONATE NASAL SPRAY NS SCH ×2 (08:24→17:03)
[2017-09-05] MEDS: PANTOPRAZOLE 40 MG 10ML VIAL IV SCH (08:24)
[2017-09-05] MEDS: FUROSEMIDE INJ 10 MG/ML 4 ML VIAL IV SCH ×3 (08:24→23:55)
[2017-09-05] MEDS: ASPIRIN 81 MG ENTERIC COATED PO SCH (08:26)
[2017-09-05] MEDS: DOCUSATE SODIUM 100 MG CAP PO SCH (08:26)
[2017-09-05] MEDS: LEVETIRACETAM 500 MG TAB PO SCH ×2 (08:26→21:43)
[2017-09-05] MEDS: FOLIC ACID 1 MG TAB PO SCH (08:26)
[2017-09-05] MEDS: METOPROLOL SUCCINATE 25 MG TAB XL PO SCH ×2 (08:28→17:09)
[2017-09-05] MEDS: METOLAZONE 5 MG TAB PO SCH (08:28)
[2017-09-05] MEDS: BALSAM PERU/CASTOR OIL 60 GM OINT...G. TP SCH ×2 (08:28→17:03)
[2017-09-05] MEDS: CYANOCOBALAMIN 1,000 MCG TAB PO SCH (08:28)
[2017-09-05] MEDS: HYDRALAZINE HCL 25 MG TAB PO SCH ×2 (08:28→17:08)
[2017-09-05] MEDS ORDERED: LORAZEPAM INJ 2 MG/ML VIAL IV ONE (10:45)
[2017-09-05 11:50] VITALS: BP 155/79
--- NOTE | 2017-09-05 12:03 | Diagnostic Imaging Report ---
History:Dilated pupil Comparison studies:None Technique: Axial images were obtained from the skull base to the vertex. Coronal and sagittal images reconstructed from the axial data. Intravenous contrast: None Findings: Scalp/skull: No abnormalities. Extra-axial spaces: No masses. No fluid collections. Brain sulci: Mildly prominent. Ventricles: Mild compensatory dilatation. No hydrocephalus. Parenchyma: Small hypodensities in the supratentorial white matter are small vessel ischemic changes. No masses, hemorrhage, acute or chronic cortical vascular insults. Sellar/suprasellar region: No abnormalities. Craniocervical junction: Patent foramen magnum. No Chiari one malformation. Incidental findings: Atherosclerotic calcifications in the carotid siphons . Right cataract surgery changes. Partial opacification of the bilateral mastoid air cells. Partial opacification of the left sphenoid sinus, mucosal thickening of the right maxillary, sphenoid and anterior ethmoid sinuses. Impression: No acute abnormalities. Chronic findings: 1. Mild generalized volume loss. 2. Mild supratentorial white matter small vessel ischemic changes. 3. Non specific inflammatory changes of the paranasal sinuses. Signed by: DR Javier Kirk M.D. on 09/05/2017 12:00 PM
[2017-09-05] MEDS: ALBUTEROL/IPRATROPIUM 3 ML NEB NEB PRN (13:50)
[2017-09-05 17:00] VITALS: BP 173/78
[2017-09-05 20:00] VITALS: BP 168/77
[2017-09-05 20:24] VITALS: BP 168/77
[2017-09-05] MEDS: ATORVASTATIN 10 MG TAB PO SCH (21:43)
[2017-09-05] MEDS: SERTRALINE HCL 50 MG TAB PO SCH (21:44)
[2017-09-05] MEDS ORDERED: MAGNESIUM HYDROXIDE 30 ML UDC PO ONE (22:15)
[2017-09-05 23:45] VITALS: BP 164/80
[2017-09-06] MEDS: PIPER-TAZ 3.375 GM 50 ML IV SCH ×3 (00:45→16:00)
[2017-09-06 04:00] VITALS: BP 148/58
[2017-09-06] MEDS: LEVOTHYROXINE SODIUM 50 MCG TAB PO SCH (05:51)
[2017-09-06 06:38] LABS: ALBUMIN 2.1 g/dL (3.5-5.0); ALBUMIN/GLOBULIN RATIO 0.6 (0.8-2.0); ANION GAP 12.8 mmol/L (8-16); CALCIUM 8.5 mg/dL (8.4-10.2); CREATININE, SERUM 2.63 mg/dL (0.57-1.11); POTASSIUM 3.8 mmol/L (3.5-5.1)
[2017-09-06] MEDS: SALMETEROL/FLUTICASONE 500/50 INH SCH ×2 (07:00→19:00)
[2017-09-06] MEDS: ALBUTEROL/IPRATROPIUM 3 ML NEB NEB PRN (07:27)
[2017-09-06] MEDS ORDERED: DEXTROSE 50% SYRINGE 50 ML IV ONE ×2 (07:29→07:33)
[2017-09-06] MEDS: INSULIN ASPART 70/30 100 UNITS/ML VIAL SC SCH ×2 (07:30→20:58)
[2017-09-06 08:00] VITALS: BP 159/63
[2017-09-06] MEDS: FUROSEMIDE INJ 10 MG/ML 4 ML VIAL IV SCH ×2 (08:00→15:00)
[2017-09-06] MEDS: PANTOPRAZOLE 40 MG 10ML VIAL IV SCH (09:17)
[2017-09-06] MEDS: DOCUSATE SODIUM 100 MG CAP PO SCH (09:18)
[2017-09-06] MEDS: FOLIC ACID 1 MG TAB PO SCH (09:18)
[2017-09-06] MEDS: BALSAM PERU/CASTOR OIL 60 GM OINT...G. TP SCH ×2 (09:18→17:13)
[2017-09-06] MEDS: METOPROLOL SUCCINATE 25 MG TAB XL PO SCH ×2 (09:18→18:17)
[2017-09-06] MEDS: HYDRALAZINE HCL 25 MG TAB PO SCH ×2 (09:18→18:16)
[2017-09-06] MEDS: LEVETIRACETAM 500 MG TAB PO SCH ×2 (09:18→20:33)
[2017-09-06] MEDS: METOLAZONE 5 MG TAB PO SCH (09:18)
[2017-09-06] MEDS: CYANOCOBALAMIN 1,000 MCG TAB PO SCH (09:18)
[2017-09-06] MEDS: ASPIRIN 81 MG ENTERIC COATED PO SCH (09:18)
[2017-09-06] MEDS: FLUTICASONE PROPIONATE NASAL SPRAY NS SCH ×2 (09:18→17:13)
[2017-09-06] MEDS: QUETIAPINE FUMARATE 25 MG TAB PO PRN ×2 (09:59→20:57)
[2017-09-06] MEDS: ACETAMINOPHEN 325 MG TAB PO PRN (09:59)
[2017-09-06 11:41] VITALS: BP 163/74
[2017-09-06 16:07] LABS: INR 1.08; PROTHROMBIN TIME 13.2 seconds (11.9-14.5)
[2017-09-06] MEDS ORDERED: MIDAZOLAM HCL 2 MG/2 ML VIAL ONE (18:30)
--- NOTE | 2017-09-06 19:29 | Diagnostic Imaging Report ---
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 Alonso Pre-operative diagnosis: Poor intravenous access Post-operative diagnosis: Poor intravenous access Conscious Sedation: None Additional Medications: Lidocaine 1% for local anesthesia Fluoroscopy time: 0.4 minutes Frontal Air Kerma: 4.7 mGy Contrast used: None Estimated blood loss: Less than 5 cc Specimens: None Implants: 7 Upper Sorbian 16 cm triple-lumen central venous catheter Condition at completion of procedure: Stable Disposition: Returned to floor DISCUSSION: Informed consent was obtained from the next of kin and documented in the medical record. Patient was placed in the supine position on the fluoroscopic table. Preliminary sonographic evaluation of the right cervical region confirmed patency of the internal jugular vein, evidenced by compressibility. The right neck was then prepped and draped in standard sterile fashion. 1% lidocaine was infiltrated into the skin and subcutaneous tissues for local anesthesia. Then under continuous sonographic guidance, an 18-gauge singlewall needle was used to access the right internal jugular vein. A permanent sonographic image was stored in the medical record. A 0.0 3 5-in. wire was advanced centrally under fluoroscopic guidance. The needle was removed and the tract dilated. Then a 7 Upper Sorbian, 16 cm triple-lumen central venous catheter was advanced over the wire to full depth. The wire was removed and the catheter tip was positioned at the low superior vena cava. Each lumen showed adequate bidirectional flow and was flushed with sterile saline. The catheter was secured to the skin with monofilament nylon suture and a sterile dressing was applied. The patient tolerated the procedure well without immediate complication. FINDINGS: Patent right internal jugular vein. IMPRESSION: Successful placement of a 7 Upper Sorbian, 16 cm triple-lumen central venous catheter by a right internal jugular approach under sonographic and fluoroscopic guidance. Signed by: Dr. Rodrigo Alonso M.D. on 09/06/2017 7:25 PM
--- NOTE | 2017-09-06 19:29 | Diagnostic Imaging Report ---
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 Alonso Pre-operative diagnosis: Poor intravenous access Post-operative diagnosis: Poor intravenous access Conscious Sedation: None Additional Medications: Lidocaine 1% for local anesthesia Fluoroscopy time: 0.4 minutes Frontal Air Kerma: 4.7 mGy Contrast used: None Estimated blood loss: Less than 5 cc Specimens: None Implants: 7 Lithuanian 16 cm triple-lumen central venous catheter Condition at completion of procedure: Stable Disposition: Returned to floor DISCUSSION: Informed consent was obtained from the next of kin and documented in the medical record. Patient was placed in the supine position on the fluoroscopic table. Preliminary sonographic evaluation of the right cervical region confirmed patency of the internal jugular vein, evidenced by compressibility. The right neck was then prepped and draped in standard sterile fashion. 1% lidocaine was infiltrated into the skin and subcutaneous tissues for local anesthesia. Then under continuous sonographic guidance, an 18-gauge singlewall needle was used to access the right internal jugular vein. A permanent sonographic image was stored in the medical record. A 0.0 3 5-in. wire was advanced centrally under fluoroscopic guidance. The needle was removed and the tract dilated. Then a 7 Lithuanian, 16 cm triple-lumen central venous catheter was advanced over the wire to full depth. The wire was removed and the catheter tip was positioned at the low superior vena cava. Each lumen showed adequate bidirectional flow and was flushed with sterile saline. The catheter was secured to the skin with monofilament nylon suture and a sterile dressing was applied. The patient tolerated the procedure well without immediate complication. FINDINGS: Patent right internal jugular vein. IMPRESSION: Successful placement of a 7 Lithuanian, 16 cm triple-lumen central venous catheter by a right internal jugular approach under sonographic and fluoroscopic guidance. Signed by: Dr. Rodrigo Alonso M.D. on 09/06/2017 7:25 PM
[2017-09-06] MEDS: NITROGLYCERIN 0.4 MG SUBL SL PRN (19:41)
[2017-09-06] MEDS: ATORVASTATIN 10 MG TAB PO SCH (20:34)
[2017-09-06 20:45] VITALS: BP 146/78
[2017-09-06 20:55] VITALS: BP 155/78
[2017-09-07] VITALS (9 sets, daily range): BP systolic 102–180; BP diastolic 61–94
[2017-09-07] MEDS: PIPER-TAZ 3.375 GM 50 ML IV SCH ×4 (00:46→23:30)
[2017-09-07] MEDS: FUROSEMIDE INJ 10 MG/ML 4 ML VIAL IV SCH ×4 (00:46→23:20)
[2017-09-07] MEDS: ACETAMINOPHEN 325 MG TAB PO PRN (01:21)
[2017-09-07] MEDS: MAGNESIUM HYDROXIDE 30 ML UDC PO PRN (02:11)
[2017-09-07] MEDS: QUETIAPINE FUMARATE 25 MG TAB PO PRN ×2 (04:43→15:39)
[2017-09-07 06:14] LABS: BASOPHILS % 0.5 % (0.0-1.0); EOSINOPHILS # (AUTO) 0.2 (0.0-0.4); HEMATOCRIT 23.6 % (34.2-44.1); LYMPHOCYTES # (AUTO) 0.8 (1.0-3.2); LYMPHOCYTES % 13.6 % (18.0-39.1); MEAN CORPUSCULAR HEMOGLOBIN 30.1 pg (28-32); MEAN CORPUSCULAR HGB CONC 31.4 g/dL (31-35); MEAN CORPUSCULAR VOLUME 95.9 fL (81-99); MONOCYTES # (AUTO) 0.5 (0.2-0.8); MONOCYTES % 7.9 % (4.4-11.3); NEUTROPHILS # (AUTO) 4.1 (2.1-6.9); NEUTROPHILS % 69.6 % (38.7-80.0); PLATELET COUNT 126 x10e3/uL (140-360); RED BLOOD COUNT 2.46 x10e6/uL (3.6-5.1); RED CELL DISTRIBUTION WIDTH 16.2 % (11.7-14.4)
[2017-09-07 06:34] LABS: ANION GAP 13.9 mmol/L (8-16); CALCIUM 8.5 mg/dL (8.4-10.2); CREATININE, SERUM 2.48 mg/dL (0.57-1.11); POTASSIUM 3.9 mmol/L (3.5-5.1)
[2017-09-07] MEDS: LEVOTHYROXINE SODIUM 50 MCG TAB PO SCH (06:38)
[2017-09-07 06:57] LABS: HEMOGLOBIN 7.4 g/dL (12.0-16.0)
[2017-09-07] MEDS: SALMETEROL/FLUTICASONE 500/50 INH SCH ×2 (07:00→19:30)
[2017-09-07] MEDS: INSULIN ASPART 70/30 100 UNITS/ML VIAL SC SCH ×2 (07:30→20:38)
[2017-09-07 07:36] LABS: HEMATOCRIT 24.3 % (34.2-44.1)
[2017-09-07 07:56] LABS: HEMOGLOBIN 7.6 g/dL (12.0-16.0)
[2017-09-07] MEDS: PANTOPRAZOLE 40 MG 10ML VIAL IV SCH (08:02)
[2017-09-07] MEDS: FLUTICASONE PROPIONATE NASAL SPRAY NS SCH ×2 (08:03→17:35)
[2017-09-07] MEDS: ASPIRIN 81 MG ENTERIC COATED PO SCH (08:09)
[2017-09-07] MEDS: HYDRALAZINE HCL 25 MG TAB PO SCH ×2 (08:09→17:35)
[2017-09-07] MEDS: BALSAM PERU/CASTOR OIL 60 GM OINT...G. TP SCH ×3 (08:09→22:30)
[2017-09-07] MEDS: SERTRALINE HCL 50 MG TAB PO SCH ×2 (08:09→09:00)
[2017-09-07] MEDS: FOLIC ACID 1 MG TAB PO SCH (08:09)
[2017-09-07] MEDS: METOPROLOL SUCCINATE 25 MG TAB XL PO SCH ×2 (08:09→17:35)
[2017-09-07] MEDS: LEVETIRACETAM 500 MG TAB PO SCH ×2 (08:09→20:37)
[2017-09-07] MEDS: CYANOCOBALAMIN 1,000 MCG TAB PO SCH (08:09)
[2017-09-07] MEDS: METOLAZONE 5 MG TAB PO SCH (08:09)
[2017-09-07] MEDS: DOCUSATE SODIUM 100 MG CAP PO SCH (08:09)
[2017-09-07 09:08] LABS: % IRON SATURATION 38 % (15-50); IRON 61 ug/dL (50-170); TOTAL IRON BINDING CAPACITY 162 ug/dL (261-478); TRANSFERRIN 116 mg/dL (180-382)
[2017-09-07] MEDS ORDERED: EPOETIN ALFA 10000 UNIT/ML VIAL SC NR (10:00)
[2017-09-07] MEDS: SUCRALFATE 1 GM/10 ML SUSP NG SCH ×3 (10:16→20:37)
[2017-09-07] MEDS: GABAPENTIN 100 MG CAP PO SCH (10:17)
[2017-09-07] MEDS ORDERED: HALOPERIDOL LACTATE 5 MG/ML VIAL IM PRN (15:30)
--- NOTE | 2017-09-07 16:04 | Progress Note ---
DATE: September 07, 2017 The patient is evaluated and events noted. Medications and vital signs were reviewed The patient is in the bed in the room. On receiving BiPAP her daughter is in the room with her. The patient is awake and alert. She states that she is having depression and intermittent passive wish. She denies any suicidal ideation at this time. She denies any hallucinations. She denies any problems with medications. I discussed with the patient's daughter who is in the room. Daughter states that the patient has been very agitated pulling out IV lines multiple times. Seroquel has been added for her. The patient has been engaging in self talk. She is talking to her family members at times. She resumed medications and no serious side effects seen. The patient is getting multiple Seroquel p.r.n. every day, multiple times a day. ASSESSMENT: Unspecified dementia with behavioral disturbances; major depressive disorder, recurrent, moderate. PLAN: 1. Continue with Seroquel p.r.n. 2. Add Seroquel 12.5 mg p.o. nightly. 3. Continue with Zoloft 50 mg p.o. daily. 4. Continue with Neurontin. 5. Keppra as per medical. 6. Haldol 1 mg ___ q.6 h. p.r.n. for agitation. 7. Monitor for agitation. Dictated by: CHIVO Christie Job#: [id number]
--- NOTE | 2017-09-07 18:24 | Diagnostic Imaging Report ---
Tagged-RBC GI Bleed Study Clinical information: 72-year-old female with low hemoglobin; concern for GI bleed. Discussion: The patient's own red blood cells were labeled with 24 mCi of technetium-99m pertechnetate using the in vitro method (UltraTag). Dynamic images of the abdomen were obtained through 60 minutes. Distribution of tracer activity appears physiologic throughout the abdomen. No abnormal accumulation of tracer is seen within the gastrointestinal lumen. Impression: No scan evidence of active gastrointestinal bleeding at this time. Signed by: Dr. Alma Barnhart M.D. on 09/07/2017 6:21 PM
[2017-09-07] MEDS: QUETIAPINE FUMARATE 25 MG TAB PO SCH (20:37)
[2017-09-07] MEDS: ATORVASTATIN 10 MG TAB PO SCH (20:37)
[2017-09-08] VITALS (7 sets, daily range): BP systolic 109–201; BP diastolic 59–96
[2017-09-08] MEDS: ACETAMINOPHEN 325 MG TAB PO PRN (06:00)
[2017-09-08] MEDS: FUROSEMIDE INJ 10 MG/ML 4 ML VIAL IV SCH ×2 (06:10→15:41)
[2017-09-08] MEDS: LEVOTHYROXINE SODIUM 50 MCG TAB PO SCH (06:10)
[2017-09-08 06:44] LABS: BASOPHILS # (AUTO) 0.1 (0.0-0.1); BASOPHILS % 0.6 % (0.0-1.0); EOSINOPHILS # (AUTO) 0.3 (0.0-0.4); EOSINOPHILS % 3.9 % (0.0-6.0); HEMATOCRIT 25.6 % (34.2-44.1); LYMPHOCYTES % 11.7 % (18.0-39.1); MEAN CORPUSCULAR HEMOGLOBIN 30.5 pg (28-32); MEAN CORPUSCULAR VOLUME 95.2 fL (81-99); MONOCYTES # (AUTO) 0.6 (0.2-0.8); MONOCYTES % 7.7 % (4.4-11.3); NEUTROPHILS % 71.7 % (38.7-80.0); PLATELET COUNT 138 x10e3/uL (140-360); RED BLOOD COUNT 2.69 x10e6/uL (3.6-5.1); RED CELL DISTRIBUTION WIDTH 16.5 % (11.7-14.4)
[2017-09-08 06:54] LABS: HEMOGLOBIN 8.2 g/dL (12.0-16.0)
[2017-09-08] MEDS: SALMETEROL/FLUTICASONE 500/50 INH SCH ×2 (07:00→19:35)
[2017-09-08 07:13] LABS: ALBUMIN 2.2 g/dL (3.5-5.0); ALBUMIN/GLOBULIN RATIO 0.6 (0.8-2.0); ANION GAP 12.7 mmol/L (8-16); CALCIUM 8.7 mg/dL (8.4-10.2); CREATININE, SERUM 2.38 mg/dL (0.57-1.11); POTASSIUM 3.7 mmol/L (3.5-5.1)
[2017-09-08] MEDS: INSULIN ASPART 70/30 100 UNITS/ML VIAL SC SCH ×2 (07:30→21:10)
[2017-09-08] MEDS: SUCRALFATE 1 GM/10 ML SUSP NG SCH ×4 (07:30→20:22)
[2017-09-08] MEDS: HYDRALAZINE HCL 25 MG TAB PO SCH ×2 (09:00→16:41)
[2017-09-08] MEDS ORDERED: SODIUM CHLORIDE 0.9% 250ML 250 ML ONE (09:13)
[2017-09-08] MEDS: PIPER-TAZ 3.375 GM 50 ML IV SCH ×2 (09:19→16:42)
[2017-09-08] MEDS: PANTOPRAZOLE 40 MG 10ML VIAL IV SCH (09:19)
[2017-09-08] MEDS: FLUTICASONE PROPIONATE NASAL SPRAY NS SCH ×2 (10:33→16:42)
[2017-09-08] MEDS: DOCUSATE SODIUM 100 MG CAP PO SCH (10:34)
[2017-09-08] MEDS: FOLIC ACID 1 MG TAB PO SCH (10:34)
[2017-09-08] MEDS: METOPROLOL SUCCINATE 25 MG TAB XL PO SCH ×2 (10:34→16:41)
[2017-09-08] MEDS: CYANOCOBALAMIN 1,000 MCG TAB PO SCH (10:34)
[2017-09-08] MEDS: GABAPENTIN 100 MG CAP PO SCH (10:34)
[2017-09-08] MEDS: METOLAZONE 5 MG TAB PO SCH (10:34)
[2017-09-08] MEDS: LEVETIRACETAM 500 MG TAB PO SCH ×2 (10:34→20:22)
[2017-09-08] MEDS: ASPIRIN 81 MG ENTERIC COATED PO SCH (10:34)
[2017-09-08] MEDS: SERTRALINE HCL 50 MG TAB PO SCH (10:35)
[2017-09-08] MEDS: BALSAM PERU/CASTOR OIL 60 GM OINT...G. TP SCH ×2 (10:35→16:41)
[2017-09-08] MEDS: ONDANSETRON HCL 4 MG ORAL DISINTEGRATING TAB PO PRN ×2 (16:30→16:52)
[2017-09-08] MEDS: CHOLESTYRAMINE 4 GM PACKET PO SCH ×2 (17:09→20:22)
[2017-09-08] MEDS: QUETIAPINE FUMARATE 25 MG TAB PO SCH (20:22)
[2017-09-08] MEDS: ATORVASTATIN 10 MG TAB PO SCH (20:22)
[2017-09-08] MEDS: NITROGLYCERIN 0.4 MG SUBL SL PRN (20:23)
[2017-09-08] MEDS ORDERED: MORPHINE SULFATE 2 MG/ML SYR IV PRN (22:15)
[2017-09-09] VITALS (69 sets, daily range): BP systolic 83–159; BP diastolic 38–80
[2017-09-09] MEDS: PIPER-TAZ 3.375 GM 50 ML IV SCH ×2 (00:29→08:15)
[2017-09-09] MEDS: FUROSEMIDE INJ 10 MG/ML 4 ML VIAL IV SCH ×4 (00:29→23:16)
[2017-09-09] MEDS: ALBUTEROL/IPRATROPIUM 3 ML NEB NEB SCH ×4 (02:10→22:40)
[2017-09-09 03:47] LABS: BASOPHILS % 0.2 % (0.0-1.0); EOSINOPHILS % 0.2 % (0.0-6.0); HEMATOCRIT 24.2 % (34.2-44.1); HEMOGLOBIN 7.5 g/dL (12.0-16.0); LYMPHOCYTES # (AUTO) 0.3 (1.0-3.2); LYMPHOCYTES % 6.6 % (18.0-39.1); MEAN CORPUSCULAR HEMOGLOBIN 29.5 pg (28-32); MEAN CORPUSCULAR VOLUME 95.3 fL (81-99); MONOCYTES # (AUTO) 0.1 (0.2-0.8); MONOCYTES % 2.8 % (4.4-11.3); NEUTROPHILS # (AUTO) 4.3 (2.1-6.9); NEUTROPHILS % 85.8 % (38.7-80.0); PLATELET COUNT 76 x10e3/uL (140-360); RED BLOOD COUNT 2.54 x10e6/uL (3.6-5.1)
[2017-09-09 04:08] LABS: ALBUMIN 1.9 g/dL (3.5-5.0); ALBUMIN/GLOBULIN RATIO 0.6 (0.8-2.0); ANION GAP 11.5 mmol/L (8-16); CALCIUM 8.4 mg/dL (8.4-10.2); CREATININE, SERUM 2.39 mg/dL (0.57-1.11); POTASSIUM 3.5 mmol/L (3.5-5.1)
[2017-09-09 04:13] LABS: BAND NEUTROPHILS % (MANUAL) 2 %; LYMPHOCYTES % (MANUAL) 11 % (19-48); METAMYELOCYTES % (MANUAL) 2 % (0-0); MONOCYTES % (MANUAL) 1 % (3.4-9.0); MYELOCYTES % (MANUAL) 2 % (0-0); NEUTROPHILS % (MANUAL) 81 % (40-74)
[2017-09-09 04:14] LABS: ANISOCYTOSIS SLIGHT; PLATELET ESTIMATE MODERATELY DECREASED; PLATELET MORPHOLOGY COMMENT NORMAL; RBC MORPHOLOGY COMMENT ABNORMAL
[2017-09-09 04:17] LABS: MAGNESIUM 1.7 MG/DL (1.3-2.1); PHOSPHORUS 5.9 MG/DL (2.3-4.7)
--- NOTE | 2017-09-09 04:28 | Diagnostic Imaging Report ---
EXAM: CHEST SINGLE (PORTABLE), AP 1 view INDICATION: Possible sepsis, pneumonia, shortness of breath COMPARISON: AP view of the chest September 03, 2017 FINDINGS: LINES/TUBES: Interval placement of right internal jugular vein central line with tip at expected location atriocaval junction. LUNGS: Limited view of the lungs secondary to level of penetration. Grossly no interval change. PLEURA: Layering bilateral pleural effusions. HEART AND MEDIASTINUM: Stable BONES AND SOFT TISSUES: No acute findings. IMPRESSION: Interval placement of right internal jugular vein central line with tip at expected location atriocaval junction. No pneumothorax. Signed by: Dr. Rhiannon Will M.D. on 09/09/2017 4:25 AM
[2017-09-09] MEDS ORDERED: MIDAZOLAM HCL 2 MG/2 ML VIAL ONE ×2 (04:49→06:02)
--- NOTE | 2017-09-09 05:02 | Diagnostic Imaging Report ---
EXAM: CHEST SINGLE (PORTABLE), AP 1 view INDICATION: Respiratory failure COMPARISON: AP view of the chest September 09, 2017 FINDINGS: LINES/TUBES: Interval placement of endotracheal tube that terminates at the level of the marta. Stable position of right internal jugular vein central line. LUNGS: Stable bilateral airspace opacities predominantly on the right. PLEURA: Small bilateral pleural effusions. HEART AND MEDIASTINUM: Stable appearance. BONES AND SOFT TISSUES: No acute findings. IMPRESSION: Interval placement of endotracheal tube that terminates at the marta. Recommend retraction. Signed by: Dr. Rhiannon Will M.D. on 09/09/2017 4:59 AM
[2017-09-09 05:38] LABS: ABG PH 7.24 (7.31-7.41)
[2017-09-09 05:39] LABS: ABG PCO2 99 mmHg (41-51)
[2017-09-09 05:40] LABS: ABG PO2 183 mmHg (80-105)
[2017-09-09 05:41] LABS: ABG HCO3 43 mmol/L (23-28)
[2017-09-09] MEDS: LEVOTHYROXINE SODIUM 50 MCG TAB PO SCH (05:43)
[2017-09-09] MEDS ORDERED: MIDAZOLAM HCL 2 MG/2 ML VIAL IV STA (05:54)
[2017-09-09] MEDS ORDERED: PROPOFOL IV EMULSION 10 MG/ML 50 ML VIAL IV PRN (07:00)
[2017-09-09] MEDS: SALMETEROL/FLUTICASONE 500/50 INH SCH ×2 (07:00→19:00)
[2017-09-09] MEDS: SUCRALFATE 1 GM/10 ML SUSP NG SCH ×4 (07:30→20:26)
[2017-09-09] MEDS ORDERED: DIPHENHYDRAMINE HCL INJ 50 MG/ML VIAL IV ONE ×2 (07:30→15:00)
[2017-09-09] MEDS: INSULIN ASPART 70/30 100 UNITS/ML VIAL SC SCH ×2 (07:30→20:19)
[2017-09-09] MEDS ORDERED: VANCOMYCIN 1GM/NS 250 ML 250 ML IV ONE ×2 (07:45→08:00)
[2017-09-09] MEDS: PANTOPRAZOLE 40 MG 10ML VIAL IV SCH (08:15)
[2017-09-09] MEDS: FLUTICASONE PROPIONATE NASAL SPRAY NS SCH ×2 (08:18→17:00)
[2017-09-09] MEDS: HYDRALAZINE HCL 25 MG TAB PO SCH ×2 (08:48→17:00)
[2017-09-09] MEDS: METOPROLOL SUCCINATE 25 MG TAB XL PO SCH ×2 (08:48→17:00)
[2017-09-09] MEDS: BALSAM PERU/CASTOR OIL 60 GM OINT...G. TP SCH ×2 (08:48→18:24)
[2017-09-09] MEDS: CYANOCOBALAMIN 1,000 MCG TAB PO SCH (08:49)
[2017-09-09] MEDS: DOCUSATE SODIUM 100 MG CAP PO SCH (08:49)
[2017-09-09] MEDS: CHOLESTYRAMINE 4 GM PACKET PO SCH ×4 (08:49→20:13)
[2017-09-09] MEDS: METOLAZONE 5 MG TAB PO SCH (08:49)
[2017-09-09] MEDS: GABAPENTIN 100 MG CAP PO SCH (08:49)
[2017-09-09] MEDS: LEVETIRACETAM 500 MG TAB PO SCH (08:49)
[2017-09-09] MEDS: FOLIC ACID 1 MG TAB PO SCH (08:49)
[2017-09-09] MEDS: SERTRALINE HCL 50 MG TAB PO SCH (08:49)
[2017-09-09] MEDS: ASPIRIN 81 MG ENTERIC COATED PO SCH (08:49)
[2017-09-09] MEDS ORDERED: PANTOPRAZOLE 40 MG 10ML VIAL IV SCH (09:00)
[2017-09-09] MEDS ORDERED: SODIUM CHLORIDE 0.9% 250ML 250 ML IV ONE ×2 (10:00→15:00)
[2017-09-09] MEDS ORDERED: PROPOFOL IV EMULSION 10MG/ML 100 ML IV PRN (10:30)
[2017-09-09] MEDS: SEVELAMER CARBONATE 800 MG TAB PO SCH ×2 (11:14→17:00)
--- NOTE | 2017-09-09 13:34 | Diagnostic Imaging Report ---
PROCEDURE:US CHEST (INCL MEDIASTINUM) COMPARISON:Chest radiograph 09/09/2017 INDICATIONS:Effusions FINDINGS: Small to moderate anechoic appearing pleural effusions, right greater than left, with atelectasis. CONCLUSION: Small to moderate pleural effusions, right greater than left. Dictated by: Tyler Torres M.D. on 09/09/2017 at 13:35 Electronically approved by: Tyler Torres M.D. on 09/09/2017 at 13:35
[2017-09-09 14:17] LABS: ABG HCO3 34 mmol/L (23-28); ABG PCO2 33 mmHg (41-51); ABG PO2 90 mmHg (80-105)
--- NOTE | 2017-09-09 14:24 | Consultation ---
DATE OF CONSULTATION: September 09, 2017 ATTENDING PHYSICIAN: Juan Palacios MD REASON FOR CONSULTATION: Sepsis. Thank you, Dr. Palacios, for asking me to see this patient. HISTORY: The patient is a 71-year-old woman referred for sepsis. She is unable to give history. This information was obtained from the daughter and supplemented with chart review. She was admitted through the emergency department with acute renal failure, systolic congestive heart failure and pleural effusion. The patient presented to the emergency department with shortness of breath. She had been recently discharged from [facility] prior to readmission. The patient improved with management and stabilized on BiPAP. However she developed failure and was reintubated yesterday. There was no documented fever but the patient had three episodes of watery diarrhea yesterday. Also she has had right IJ central venous catheter since 09/06/2017 as well as indwelling Jenkins catheter since admission. PAST MEDICAL HISTORY: Diabetes mellitus type 2, hypertension, hyperlipidemia, congestive heart failure, asthma, chronic kidney disease, hypothyroidism, hepatitis C treated with interferon and ribavirin, ? treated latent TB infection, cerebrovascular accident, dementia. 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 cervical cancer and back surgery. ALLERGIES: NO KNOWN DRUG ALLERGIES. MEDICATIONS: The current antibiotic is Zosyn 3.375 grams IV every 8 hours. She received vancomycin 1 gram IV piggyback once earlier today. IMMUNIZATIONS: She received pneumococcal vaccination in July 2017 at [facility]. FAMILY HISTORY: Significant for tuberculosis in her father. SOCIAL HISTORY: No alcohol or tobacco use. REVIEW OF SYSTEMS: Unable to obtain. PHYSICAL EXAMINATION GENERAL: Acutely ill. VITAL SIGNS: T max 98.2, pulse 64, respiratory rate 14, blood pressure 116/50, weight 188 pounds. HEENT: Atraumatic. There is no icterus or injection of conjunctivae. There is no ear or nasal discharge. Orally intubated. NECK: Supple. No lymphadenopathy. LUNGS: Decreased breath sounds bilaterally. HEART: Normal S1 and S2. ABDOMEN: Soft. EXTREMITIES: There is plus edema of the upper limbs and trace edema of the legs. SKIN: There is healing sacral decubitus ulcer. ASSISTANT STATISTICIAN: Awake. LABORATORY: WBC 5,020, hemoglobin 7.5, platelets 76,000, neutrophils 85.8, lymphs 6.6, mono 2.8, eosinophil 0.2, basophil 0.2. BUN 53, creatinine 2.39, AST 13, ALT 10, alk phos 32, total bilirubin 0.2. Blood culture is pending. IMPRESSION 1. Probable sepsis not present on admission. 2. ? pneumonia. 3. Acute respiratory failure. 4. Chronic kidney disease stage 4. 5. Systolic congestive heart failure. 6. Anemia. 7. Hypothyroidism. 8. Thrombocytopenia. 9. Late effect of stroke. PLAN 1. Await blood culture results. Check urine culture. 2. Change Zosyn to cefepime 1 gram IV piggyback q. 24 hours due to worse thrombocytopenia. 3. Anemia workup by internal medicine. Job#: [id number] MYRA
--- NOTE | 2017-09-09 15:06 | Progress Note ---
DATE: September 09, 2017 PSYCHIATRIC PROGRESS NOTE Patient evaluated, vital signs and events noted. Patient is found to be in the ICU. She was transferred this morning and intubated. Apparently patient was agitated yesterday. She was put on a BiPAP. PRN medication was given but was ineffective. She had to be intubated due to respiratory failure. At this time, she is sedated. Family member is in the room as well as nursing staff. Patient has been receiving Seroquel. She is also on Keppra and also Neurontin. Vital signs fluctuate. Low end is 83/34, and current vital signs of 129/66, heart rate 61. ASSESSMENT: Unspecified dementia; major depressive disorder, recurrent, moderate; unspecified psychosis. PLAN 1. To continue with Seroquel schedule. 2. Continue Zoloft. 3. Keppra as per Medical. 4. Increase Haldol from 1 mg IM q.6 h. p.r.n. to 2 mg IM q.6 h. p.r.n. 5. Increase Seroquel p.r.n. to 25 mg p.o. q.6 h. p.r.n. 6. Monitor for agitation. Dictated by: CHIVO Christie Job#: [id number]
[2017-09-09 16:32] LABS: ABG HCO3 35 mmol/L (23-28); ABG PCO2 43 mmHg (41-51); ABG PO2 91 mmHg (80-105)
[2017-09-09] MEDS: LEVETIRACETAM 500MG/5ML VIAL 750 MG in SODIUM CHLORIDE 0.9% 100 ML 100 ML IV SCH (17:39)
--- NOTE | 2017-09-09 17:59 | Progress Note ---
DATE: September 09, 2017 NEUROLOGICAL PROGRESS NOTE A patient of Dr. Juan Palacios. A followup appointment at 5 o'clock in the evening in ICU 194. Events were noted. The patient has been having a respiratory problem last night and necessary to be intubated and transferred to ICU. At the present time, patient is sedated, intubated, no vasopressors. Blood pressure is 122/41, pulse is 86, afebrile. Pupils are very small, sluggish reaction. Doll's movements present. Limbs flaccid. Plantar stimulation is down bilaterally. No seizures reported. To continue with Keppra IV now 750 mg twice a day. I discussed with the daughter who was present and will monitor closely. Job#: [id number] EV
[2017-09-09 18:48] LABS: CLARITY,URINE SL CLOUDY (CLEAR); COLOR,URINE YELLOW (YELLOW); LEUKOCYTE ESTERASE ,URINE 1+ (NEGATIVE)
[2017-09-09 18:49] LABS: BILIRUBIN,URINE NEGATIVE (NEGATIVE); KETONES,URINE TRACE (NEGATIVE); NITRITE,URINE NEGATIVE (NEGATIVE); PROTEIN,URINE DIPSTICK 2+ (NEGATIVE); URINE UROBILINOGEN 0.2 mg/dL (0.2 - 1)
[2017-09-09 19:01] LABS: AMORPHOUS SEDIMENT,URINE FEW (FEW); EPITHELIAL CELLS,URINE FEW /LPF; WBC,URINE (MAN) 0-5 /HPF (0-5)
[2017-09-09] MEDS: ACETAMINOPHEN 325 MG TAB PO PRN (20:11)
[2017-09-09] MEDS: ATORVASTATIN 10 MG TAB PO SCH (20:13)
[2017-09-09] MEDS: QUETIAPINE FUMARATE 25 MG TAB PO SCH (20:13)
[2017-09-10] VITALS (69 sets, daily range): BP systolic 121–215; BP diastolic 39–78
[2017-09-10] MEDS: ALBUTEROL/IPRATROPIUM 3 ML NEB NEB SCH ×5 (00:35→19:15)
[2017-09-10 05:19] LABS: BASOPHILS # (AUTO) 0.1 (0.0-0.1); BASOPHILS % 0.6 % (0.0-1.0); EOSINOPHILS # (AUTO) 0.2 (0.0-0.4); EOSINOPHILS % 2.1 % (0.0-6.0); HEMATOCRIT 27.2 % (34.2-44.1); HEMOGLOBIN 8.8 g/dL (12.0-16.0); LYMPHOCYTES # (AUTO) 1.2 (1.0-3.2); MEAN CORPUSCULAR HEMOGLOBIN 30.1 pg (28-32); MEAN CORPUSCULAR HGB CONC 32.4 g/dL (31-35); MEAN CORPUSCULAR VOLUME 93.2 fL (81-99); MONOCYTES # (AUTO) 0.7 (0.2-0.8); NEUTROPHILS # (AUTO) 6.6 (2.1-6.9); NEUTROPHILS % 74.3 % (38.7-80.0); PLATELET COUNT 132 x10e3/uL (140-360); RED BLOOD COUNT 2.92 x10e6/uL (3.6-5.1); RED CELL DISTRIBUTION WIDTH 17.2 % (11.7-14.4)
[2017-09-10] MEDS: LEVOTHYROXINE SODIUM 50 MCG TAB PO SCH (05:29)
[2017-09-10] MEDS: LEVETIRACETAM 500MG/5ML VIAL 750 MG in SODIUM CHLORIDE 0.9% 100 ML 100 ML IV SCH ×2 (05:31→17:58)
[2017-09-10 05:40] LABS: ALBUMIN 1.9 g/dL (3.5-5.0); ALBUMIN/GLOBULIN RATIO 0.6 (0.8-2.0); ANION GAP 15.7 mmol/L (8-16); CALCIUM 8.3 mg/dL (8.4-10.2); CREATININE, SERUM 2.87 mg/dL (0.57-1.11)
[2017-09-10 05:46] LABS: POTASSIUM 2.7 mmol/L (3.5-5.1)
[2017-09-10] MEDS ORDERED: POTASSIUM CHLORIDE 10MEQ/100ML 200 ML IV ONE (06:15)
[2017-09-10] MEDS ORDERED: POTASSIUM CHLORIDE 20MEQ/100ML 200 ML IV ONE ×2 (06:30→12:45)
[2017-09-10] MEDS: SALMETEROL/FLUTICASONE 500/50 INH SCH ×2 (06:32→19:00)
[2017-09-10] MEDS: FUROSEMIDE INJ 10 MG/ML 4 ML VIAL IV SCH ×3 (06:40→23:28)
[2017-09-10] MEDS: INSULIN ASPART 70/30 100 UNITS/ML VIAL SC SCH ×2 (07:30→20:23)
[2017-09-10] MEDS: SUCRALFATE 1 GM/10 ML SUSP NG SCH ×4 (07:30→20:23)
[2017-09-10] MEDS: SEVELAMER CARBONATE 800 MG TAB PO SCH ×3 (07:36→16:00)
--- NOTE | 2017-09-10 08:06 | Diagnostic Imaging Report ---
EXAM: CHEST SINGLE (PORTABLE) 09/10/2017 at 7:01 AM INDICATION: Sepsis COMPARISON: 09/09/2017 FINDINGS: Single portable AP view of the chest. Visualized bones, soft tissues and cardiomediastinal silhouette appear unchanged. IMPRESSION: 1. Lines/tubes: Right IJ central line and nasogastric tube are in appropriate location. Endotracheal tube extends into the right mainstem bronchus and should be withdrawn approximately 2 cm. 2. There are bilateral pleural effusions and moderate pulmonary edema. Signed by: Dr. Aaron Serrato DO on 09/10/2017 8:03 AM
[2017-09-10] MEDS: FLUTICASONE PROPIONATE NASAL SPRAY NS SCH ×2 (09:00→18:00)
[2017-09-10] MEDS ORDERED: BALSAM PERU/CASTOR OIL 60 GM OINT...G. TP SCH (09:00)
[2017-09-10] MEDS: ASPIRIN 81 MG ENTERIC COATED PO SCH (09:00)
[2017-09-10] MEDS: DOCUSATE SODIUM 100 MG CAP PO SCH (09:00)
[2017-09-10] MEDS: GABAPENTIN 100 MG CAP PO SCH (09:00)
[2017-09-10] MEDS: METOPROLOL SUCCINATE 25 MG TAB XL PO SCH ×2 (09:00→16:01)
[2017-09-10] MEDS: HYDRALAZINE HCL 25 MG TAB PO SCH ×2 (09:00→16:01)
[2017-09-10] MEDS: METOLAZONE 5 MG TAB PO SCH (09:54)
[2017-09-10] MEDS: FOLIC ACID 1 MG TAB PO SCH (09:54)
[2017-09-10] MEDS: SERTRALINE HCL 50 MG TAB PO SCH (09:54)
[2017-09-10] MEDS: CYANOCOBALAMIN 1,000 MCG TAB PO SCH (09:54)
[2017-09-10] MEDS: PANTOPRAZOLE 40 MG 10ML VIAL IV SCH (09:54)
[2017-09-10] MEDS: CEFEPIME HCL 1 GM VIAL IV SCH (10:00)
[2017-09-10] MEDS: HYDRALAZINE HCL 20 MG/ML VIAL IV PRN ×3 (10:30→21:00)
[2017-09-10] MEDS: CHOLESTYRAMINE 4 GM PACKET PO SCH ×4 (10:30→20:23)
[2017-09-10 10:35] LABS: ABG HCO3 36 mmol/L (23-28); ABG PCO2 50 mmHg (41-51); ABG PH 7.46 (7.31-7.41); ABG PO2 106 mmHg (80-105)
[2017-09-10] MEDS: BALSAM PERU/CASTOR OIL 60 GM OINT...G. TP SCH ×2 (11:17→17:58)
--- NOTE | 2017-09-10 15:30 | Progress Note ---
DATE: September 10, 2017 PSYCHIATRIC PROGRESS NOTE Patient evaluated and events noted. Patient is found to be in the ICU. She has been extubated. She is alert, awake and oriented to situation. She is aware that she is in a hospital and recognizes a family member who is standing nearby. The patient is calm at this time and not agitated or combative. She is not in restraint. She states that she is doing okay. She is not interacting with internal stimuli. She has not been combative and has not received any p.r.n. p.o. or IM medication. She is getting scheduled medications and no serious side effects seen or reported. Nursing reports the patient is doing pretty well. ASSESSMENT: Unspecified dementia/major depressive disorder, recurrent, moderate. PLAN 1. Continue with Seroquel 12.5 mg p.o. nightly. 2. Continue with Seroquel 25 mg p.o. q.6 h. p.r.n. 3. Continue with Haldol p.r.n. IM. 4. Continue with Zoloft. 5. Continue with Neurontin. 6. Monitor for agitation. 7. Discussed with family members and nursing staff. Dictated by: CHIVO Christie Job#: [id number]
[2017-09-10] MEDS: ATORVASTATIN 10 MG TAB PO SCH (20:23)
[2017-09-10] MEDS: QUETIAPINE FUMARATE 25 MG TAB PO SCH (20:23)
[2017-09-11] VITALS (42 sets, daily range): BP systolic 149–208; BP diastolic 53–89
[2017-09-11] MEDS: HYDRALAZINE HCL 20 MG/ML VIAL IV PRN ×3 (01:00→19:47)
[2017-09-11] MEDS: ALBUTEROL/IPRATROPIUM 3 ML NEB NEB SCH ×6 (02:15→23:00)
[2017-09-11] MEDS: LEVETIRACETAM 500MG/5ML VIAL 750 MG in SODIUM CHLORIDE 0.9% 100 ML 100 ML IV SCH ×2 (05:13→17:28)
[2017-09-11] MEDS: LEVOTHYROXINE SODIUM 50 MCG TAB PO SCH (05:13)
[2017-09-11 06:22] LABS: ALBUMIN/GLOBULIN RATIO 0.6 (0.8-2.0); CALCIUM 8.4 mg/dL (8.4-10.2); CREATININE, SERUM 2.98 mg/dL (0.57-1.11)
[2017-09-11] MEDS: SALMETEROL/FLUTICASONE 500/50 INH SCH ×2 (07:00→19:00)
[2017-09-11] MEDS ORDERED: POTASSIUM CHLORIDE 20 MEQ TAB CR PO SCH ×2 (07:00→11:00)
[2017-09-11] MEDS: FUROSEMIDE INJ 10 MG/ML 4 ML VIAL IV SCH ×3 (07:45→22:01)
[2017-09-11] MEDS: METOPROLOL TARTRATE INJ 1 MG/ML VIAL IV PRN ×2 (07:46→23:30)
[2017-09-11] MEDS: SEVELAMER CARBONATE 800 MG TAB PO SCH ×3 (08:38→15:50)
[2017-09-11] MEDS: SUCRALFATE 1 GM/10 ML SUSP NG SCH ×4 (08:38→20:00)
[2017-09-11] MEDS: CHOLESTYRAMINE 4 GM PACKET PO SCH ×4 (08:39→20:00)
[2017-09-11] MEDS: DOCUSATE SODIUM 100 MG CAP PO SCH (08:39)
[2017-09-11] MEDS: METOLAZONE 5 MG TAB PO SCH (08:39)
[2017-09-11] MEDS: ASPIRIN 81 MG ENTERIC COATED PO SCH (08:39)
[2017-09-11] MEDS: SERTRALINE HCL 50 MG TAB PO SCH (08:39)
[2017-09-11] MEDS: METOPROLOL SUCCINATE 25 MG TAB XL PO SCH (08:39)
[2017-09-11] MEDS: CYANOCOBALAMIN 1,000 MCG TAB PO SCH (08:39)
[2017-09-11] MEDS: FLUTICASONE PROPIONATE NASAL SPRAY NS SCH ×2 (08:59→17:28)
[2017-09-11] MEDS: GABAPENTIN 100 MG CAP PO SCH (09:00)
[2017-09-11] MEDS ORDERED: HYDRALAZINE HCL 25 MG TAB PO SCH (09:00)
[2017-09-11 09:27] LABS: ABG PH 7.33 (7.31-7.41)
[2017-09-11 09:28] LABS: ABG HCO3 36 mmol/L (23-28); ABG PCO2 69 mmHg (41-51); ABG PO2 57 mmHg (80-105)
[2017-09-11] MEDS: PANTOPRAZOLE 40 MG 10ML VIAL IV SCH (09:41)
[2017-09-11] MEDS: CEFEPIME HCL 1 GM VIAL IV SCH (09:41)
[2017-09-11] MEDS: INSULIN ASPART 70/30 100 UNITS/ML VIAL SC SCH ×2 (09:41→20:01)
[2017-09-11] MEDS: BALSAM PERU/CASTOR OIL 60 GM OINT...G. TP SCH ×2 (09:42→15:50)
[2017-09-11] MEDS: FOLIC ACID 1 MG TAB PO SCH (09:42)
[2017-09-11] MEDS: HYDRALAZINE HCL 25 MG TAB PO SCH ×3 (09:42→20:00)
[2017-09-11] MEDS: AMLODIPINE BESYLATE 10 MG TAB PO SCH (09:42)
[2017-09-11] MEDS ORDERED: POTASSIUM CHLORIDE 20MEQ/100ML 200 ML IV ONE (09:45)
[2017-09-11] MEDS ORDERED: DIVALPROEX SODIUM 250 MG TAB...DR PO SCH (15:00)
--- NOTE | 2017-09-11 15:10 | Progress Note ---
DATE: September 11, 2017 PSYCHIATRIC PROGRESS NOTE Patient evaluated and events noted. Patient is found to be in the ICU. She is alert, awake and oriented to situation. She is irritable, demanding to go home. She is not combative. She is not in restraints. She has not received any p.r.n. IM medication or p.o. medication. She is receiving her medications. Some medications are being on hold, such as Aricept. ASSESSMENT: Unspecified dementia and depression. PLAN 1. Continue with Haldol p.r.n. 2. Continue with Seroquel p.r.n. 3. Continue Seroquel 12.5 mg p.o. nightly. 4. Continue with Zoloft 50 p.o. daily. 5. Keppra as per medical. 6. Add Depakote Sprinkle 125 mg p.o. 3 times a day. 7. Monitor for agitation and mood. Dictated by: CHIVO Christie Job#: [id number]
[2017-09-11] MEDS: TRIAMCINOLONE ACET 0.1% CREAM 15 GM TUBE TOP SCH (15:50)
[2017-09-11] MEDS: DIVALPROEX SODIUM 125 MG TABDR...ER PO SCH ×2 (15:50→20:00)
[2017-09-11] MEDS: METOPROLOL SUCCINATE 50 MG TAB XL PO SCH (15:50)
[2017-09-11] MEDS: NITROGLYCERIN 2% OINT 1 GM PKT TOP SCH ×2 (15:50→23:25)
[2017-09-11] MEDS ORDERED: METOPROLOL SUCCINATE 25 MG TAB XL PO SCH (17:00)
[2017-09-11] MEDS: QUETIAPINE FUMARATE 25 MG TAB PO SCH (20:00)
[2017-09-11] MEDS: ATORVASTATIN 10 MG TAB PO SCH (20:00)
[2017-09-11] MEDS: HALOPERIDOL LACTATE 5 MG/ML VIAL IM PRN (20:21)
[2017-09-11] MEDS: SODIUM CHLORIDE FLUSH 10 ML SYR INJ PRN (20:22)
[2017-09-12] VITALS (46 sets, daily range): BP systolic 118–197; BP diastolic 50–85
[2017-09-12] MEDS: ALBUTEROL/IPRATROPIUM 3 ML NEB NEB SCH ×6 (03:00→23:00)
[2017-09-12] MEDS: NITROGLYCERIN 0.4 MG SUBL SL PRN (03:28)
[2017-09-12] MEDS: HYDRALAZINE HCL 20 MG/ML VIAL IV PRN (03:35)
[2017-09-12] MEDS: LEVETIRACETAM 500MG/5ML VIAL 750 MG in SODIUM CHLORIDE 0.9% 100 ML 100 ML IV SCH ×3 (04:01→18:57)
[2017-09-12] MEDS: NITROGLYCERIN 2% OINT 1 GM PKT TOP SCH ×3 (05:32→18:13)
[2017-09-12] MEDS: LEVOTHYROXINE SODIUM 50 MCG TAB PO SCH (05:32)
[2017-09-12 05:51] LABS: BASOPHILS # (AUTO) 0.1 (0.0-0.1); BASOPHILS % 0.4 % (0.0-1.0); EOSINOPHILS # (AUTO) 0.2 (0.0-0.4); EOSINOPHILS % 1.3 % (0.0-6.0); HEMATOCRIT 31.7 % (34.2-44.1); HEMOGLOBIN 9.8 g/dL (12.0-16.0); LYMPHOCYTES # (AUTO) 0.6 (1.0-3.2); LYMPHOCYTES % 5.2 % (18.0-39.1); MEAN CORPUSCULAR HEMOGLOBIN 29.3 pg (28-32); MEAN CORPUSCULAR HGB CONC 30.9 g/dL (31-35); MEAN CORPUSCULAR VOLUME 94.9 fL (81-99); MONOCYTES # (AUTO) 0.6 (0.2-0.8); NEUTROPHILS # (AUTO) 9.7 (2.1-6.9); NEUTROPHILS % 83.4 % (38.7-80.0); PLATELET COUNT 135 x10e3/uL (140-360); RED BLOOD COUNT 3.34 x10e6/uL (3.6-5.1); RED CELL DISTRIBUTION WIDTH 17.1 % (11.7-14.4)
[2017-09-12 06:17] LABS: ALBUMIN/GLOBULIN RATIO 0.6 (0.8-2.0); ANION GAP 13.2 mmol/L (8-16); CALCIUM 8.5 mg/dL (8.4-10.2); CREATININE, SERUM 2.84 mg/dL (0.57-1.11); POTASSIUM 4.2 mmol/L (3.5-5.1)
[2017-09-12 06:36] LABS: MAGNESIUM 1.4 MG/DL (1.3-2.1); PHOSPHORUS 4.3 MG/DL (2.3-4.7)
--- NOTE | 2017-09-12 06:37 | Diagnostic Imaging Report ---
EXAM: CHEST SINGLE (PORTABLE), AP 1 view INDICATION: Pneumonia COMPARISON: AP view of the chest September 10, 2017 FINDINGS: LINES/TUBES: Interval removal of endotracheal tube and nasal/orogastric tube. Stable position of right internal jugular vein central line. LUNGS: Bilateral pulmonary edema PLEURA: Moderate bilateral pleural effusions HEART AND MEDIASTINUM: Stable appearance BONES AND SOFT TISSUES: No acute findings. IMPRESSION: Interval removal of endotracheal tube and nasal/orogastric tube, otherwise no significant interval change. Signed by: Dr. Rhiannon Will M.D. on 09/12/2017 6:34 AM
[2017-09-12] MEDS: SALMETEROL/FLUTICASONE 500/50 INH SCH ×2 (07:00→19:00)
[2017-09-12 08:50] LABS: BAND NEUTROPHILS % (MANUAL) 1 %; LYMPHOCYTES % (MANUAL) 5 % (19-48); MONOCYTES % (MANUAL) 1 % (3.4-9.0); NEUTROPHILS % (MANUAL) 93 % (40-74); PLATELET ESTIMATE SLIGHTLY DECREASED; PLATELET MORPHOLOGY COMMENT NORMAL; RBC MORPHOLOGY COMMENT NORMAL
[2017-09-12] MEDS: SEVELAMER CARBONATE 800 MG TAB PO SCH ×3 (08:50→16:42)
[2017-09-12] MEDS: FUROSEMIDE INJ 10 MG/ML 4 ML VIAL IV SCH ×3 (08:50→22:56)
[2017-09-12] MEDS: SUCRALFATE 1 GM/10 ML SUSP NG SCH ×4 (08:50→21:05)
[2017-09-12] MEDS: INSULIN ASPART 70/30 100 UNITS/ML VIAL SC SCH ×2 (08:50→21:06)
[2017-09-12] MEDS: FOLIC ACID 1 MG TAB PO SCH (09:00)
[2017-09-12] MEDS: METOLAZONE 5 MG TAB PO SCH (09:00)
[2017-09-12] MEDS: GABAPENTIN 100 MG CAP PO SCH (09:00)
[2017-09-12] MEDS: CYANOCOBALAMIN 1,000 MCG TAB PO SCH (09:00)
[2017-09-12] MEDS: DOCUSATE SODIUM 100 MG CAP PO SCH (09:00)
[2017-09-12] MEDS: BALSAM PERU/CASTOR OIL 60 GM OINT...G. TP SCH ×3 (09:00→22:35)
[2017-09-12] MEDS: ASPIRIN 81 MG ENTERIC COATED PO SCH (09:00)
[2017-09-12] MEDS: AMLODIPINE BESYLATE 10 MG TAB PO SCH (09:00)
[2017-09-12] MEDS: PANTOPRAZOLE 40 MG 10ML VIAL IV SCH (09:00)
[2017-09-12] MEDS: HYDRALAZINE HCL 25 MG TAB PO SCH ×3 (09:00→21:05)
[2017-09-12] MEDS: FLUTICASONE PROPIONATE NASAL SPRAY NS SCH ×2 (09:00→17:12)
[2017-09-12] MEDS: METOPROLOL SUCCINATE 50 MG TAB XL PO SCH ×2 (09:00→16:42)
[2017-09-12] MEDS: CEFEPIME HCL 1 GM VIAL IV SCH (09:00)
[2017-09-12] MEDS: TRIAMCINOLONE ACET 0.1% CREAM 15 GM TUBE TOP SCH ×2 (09:00→17:12)
[2017-09-12] MEDS: SERTRALINE HCL 50 MG TAB PO SCH (09:00)
[2017-09-12] MEDS: DIVALPROEX SODIUM 125 MG TABDR...ER PO SCH ×3 (09:00→21:05)
[2017-09-12] MEDS: CHOLESTYRAMINE 4 GM PACKET PO SCH ×4 (09:00→21:05)
[2017-09-12 13:36] LABS: ABG BASE EXCESS 33.9 mmol/L (-2 - 3); ABG HCO3 9 mmol/L (23-28); ABG PCO2 57 mmHg (41-51); ABG PH 7.37 (7.31-7.41); ABG PO2 72 mmHg (80-105)
[2017-09-12] MEDS: HALOPERIDOL LACTATE 5 MG/ML VIAL IM PRN (13:38)
[2017-09-12] MEDS: ONDANSETRON HCL 4 MG ORAL DISINTEGRATING TAB PO PRN (18:18)
[2017-09-12] MEDS: ATORVASTATIN 10 MG TAB PO SCH (21:05)
[2017-09-12] MEDS: QUETIAPINE FUMARATE 25 MG TAB PO SCH (21:05)
[2017-09-13] VITALS (46 sets, daily range): BP systolic 109–170; BP diastolic 43–71
[2017-09-13] MEDS: NITROGLYCERIN 2% OINT 1 GM PKT TOP SCH ×4 (00:16→17:24)
[2017-09-13] MEDS: ALBUTEROL/IPRATROPIUM 3 ML NEB NEB SCH ×6 (03:00→23:02)
[2017-09-13] MEDS: LEVETIRACETAM 500MG/5ML VIAL 750 MG in SODIUM CHLORIDE 0.9% 100 ML 100 ML IV SCH ×2 (06:09→17:23)
[2017-09-13] MEDS: LEVOTHYROXINE SODIUM 50 MCG TAB PO SCH (06:10)
[2017-09-13] MEDS: SALMETEROL/FLUTICASONE 500/50 INH SCH ×2 (06:20→19:25)
[2017-09-13 08:27] LABS: BASOPHILS # (AUTO) 0.1 (0.0-0.1); BASOPHILS % 0.4 % (0.0-1.0); EOSINOPHILS # (AUTO) 0.6 (0.0-0.4); HEMATOCRIT 30.8 % (34.2-44.1); HEMOGLOBIN 9.9 g/dL (12.0-16.0); LYMPHOCYTES # (AUTO) 1.4 (1.0-3.2); LYMPHOCYTES % 9.9 % (18.0-39.1); MEAN CORPUSCULAR HEMOGLOBIN 30.4 pg (28-32); MEAN CORPUSCULAR HGB CONC 32.1 g/dL (31-35); MEAN CORPUSCULAR VOLUME 94.5 fL (81-99); MONOCYTES # (AUTO) 0.8 (0.2-0.8); MONOCYTES % 5.7 % (4.4-11.3); NEUTROPHILS # (AUTO) 10.6 (2.1-6.9); NEUTROPHILS % 77.3 % (38.7-80.0); PLATELET COUNT 188 x10e3/uL (140-360); RED BLOOD COUNT 3.26 x10e6/uL (3.6-5.1); RED CELL DISTRIBUTION WIDTH 17.2 % (11.7-14.4)
[2017-09-13 08:38] LABS: ANION GAP 12.4 mmol/L (8-16); CALCIUM 8.4 mg/dL (8.4-10.2); CREATININE, SERUM 2.87 mg/dL (0.57-1.11); POTASSIUM 4.4 mmol/L (3.5-5.1)
[2017-09-13] MEDS: DOCUSATE SODIUM 100 MG CAP PO SCH (09:00)
[2017-09-13] MEDS: GABAPENTIN 100 MG CAP PO SCH (09:00)
[2017-09-13] MEDS: PANTOPRAZOLE 40 MG 10ML VIAL IV SCH (09:23)
[2017-09-13] MEDS: INSULIN ASPART 70/30 100 UNITS/ML VIAL SC SCH ×2 (09:23→21:41)
[2017-09-13] MEDS: ASPIRIN 81 MG ENTERIC COATED PO SCH (09:23)
[2017-09-13] MEDS: DIVALPROEX SODIUM 125 MG TABDR...ER PO SCH ×3 (09:23→21:41)
[2017-09-13] MEDS: SUCRALFATE 1 GM/10 ML SUSP NG SCH ×4 (09:23→21:40)
[2017-09-13] MEDS: SEVELAMER CARBONATE 800 MG TAB PO SCH ×3 (09:23→17:23)
[2017-09-13] MEDS: FUROSEMIDE INJ 10 MG/ML 4 ML VIAL IV SCH ×2 (09:23→17:23)
[2017-09-13] MEDS: FOLIC ACID 1 MG TAB PO SCH (09:23)
[2017-09-13] MEDS: FLUTICASONE PROPIONATE NASAL SPRAY NS SCH ×2 (09:23→17:24)
[2017-09-13] MEDS: CEFEPIME HCL 1 GM VIAL IV SCH (09:23)
[2017-09-13] MEDS: METOLAZONE 5 MG TAB PO SCH (09:24)
[2017-09-13] MEDS: CHOLESTYRAMINE 4 GM PACKET PO SCH ×4 (09:24→21:41)
[2017-09-13] MEDS: BALSAM PERU/CASTOR OIL 60 GM OINT...G. TP SCH ×2 (09:24→17:23)
[2017-09-13] MEDS: SERTRALINE HCL 50 MG TAB PO SCH (09:24)
[2017-09-13] MEDS: TRIAMCINOLONE ACET 0.1% CREAM 15 GM TUBE TOP SCH ×2 (09:24→17:23)
[2017-09-13] MEDS: METOPROLOL SUCCINATE 50 MG TAB XL PO SCH ×2 (09:28→17:23)
[2017-09-13] MEDS: HYDRALAZINE HCL 25 MG TAB PO SCH ×3 (09:28→21:41)
[2017-09-13] MEDS: AMLODIPINE BESYLATE 10 MG TAB PO SCH (09:28)
[2017-09-13] MEDS: CYANOCOBALAMIN 1,000 MCG TAB PO SCH (09:29)
[2017-09-13 11:18] LABS: EOSINOPHILS % (MANUAL) 9 % (0-7); LYMPHOCYTES % (MANUAL) 8 % (19-48); MONOCYTES % (MANUAL) 10 % (3.4-9.0); NEUTROPHILS % (MANUAL) 73 % (40-74); PLATELET ESTIMATE ADEQUATE; PLATELET MORPHOLOGY COMMENT NORMAL; RBC MORPHOLOGY COMMENT NORMAL
[2017-09-13] MEDS: QUETIAPINE FUMARATE 25 MG TAB PO PRN (16:33)
[2017-09-13] MEDS: HALOPERIDOL LACTATE 5 MG/ML VIAL IM PRN (17:25)
--- NOTE | 2017-09-13 19:43 | Diagnostic Imaging Report ---
Exam: Bilateral posterior chest ultrasound Indication: Pleural effusions Comparison: Chest x-ray September 12, 2017 and chest ultrasound September 09, 2017 Findings: Grayscale images of the posterior bilateral chest shows moderate to large bilateral pleural effusions and underlying atelectatic lung. Impression: Bilateral moderate to large simple pleural effusions. Signed by: Dr. Rhiannon Will M.D. on 09/13/2017 7:40 PM
[2017-09-13] MEDS: ATORVASTATIN 10 MG TAB PO SCH (21:41)
[2017-09-13] MEDS: QUETIAPINE FUMARATE 25 MG TAB PO SCH (21:41)
[2017-09-14] VITALS (34 sets, daily range): BP systolic 120–169; BP diastolic 45–76
[2017-09-14] MEDS: FUROSEMIDE INJ 10 MG/ML 4 ML VIAL IV SCH ×3 (00:03→15:07)
[2017-09-14] MEDS: NITROGLYCERIN 2% OINT 1 GM PKT TOP SCH ×4 (00:03→18:00)
[2017-09-14] MEDS: ALBUTEROL/IPRATROPIUM 3 ML NEB NEB SCH ×6 (03:15→23:22)
[2017-09-14] MEDS: LEVETIRACETAM 500MG/5ML VIAL 750 MG in SODIUM CHLORIDE 0.9% 100 ML 100 ML IV SCH ×2 (05:20→17:07)
[2017-09-14] MEDS: LEVOTHYROXINE SODIUM 50 MCG TAB PO SCH (05:55)
[2017-09-14 06:35] LABS: BASOPHILS # (AUTO) 0.1 (0.0-0.1); BASOPHILS % 0.6 % (0.0-1.0); EOSINOPHILS # (AUTO) 0.4 (0.0-0.4); EOSINOPHILS % 3.8 % (0.0-6.0); HEMATOCRIT 27.6 % (34.2-44.1); HEMOGLOBIN 8.7 g/dL (12.0-16.0); LYMPHOCYTES # (AUTO) 1.7 (1.0-3.2); LYMPHOCYTES % 15.6 % (18.0-39.1); MEAN CORPUSCULAR HEMOGLOBIN 29.8 pg (28-32); MEAN CORPUSCULAR HGB CONC 31.5 g/dL (31-35); MEAN CORPUSCULAR VOLUME 94.5 fL (81-99); MONOCYTES # (AUTO) 0.8 (0.2-0.8); MONOCYTES % 7.9 % (4.4-11.3); NEUTROPHILS # (AUTO) 7.5 (2.1-6.9); NEUTROPHILS % 69.9 % (38.7-80.0); PLATELET COUNT 165 x10e3/uL (140-360); RED BLOOD COUNT 2.92 x10e6/uL (3.6-5.1); RED CELL DISTRIBUTION WIDTH 17.3 % (11.7-14.4)
[2017-09-14 07:14] LABS: ALBUMIN 1.7 g/dL (3.5-5.0); ALBUMIN/GLOBULIN RATIO 0.5 (0.8-2.0); ANION GAP 11.3 mmol/L (8-16); CALCIUM 8.2 mg/dL (8.4-10.2); CREATININE, SERUM 2.94 mg/dL (0.57-1.11); POTASSIUM 4.3 mmol/L (3.5-5.1)
[2017-09-14 08:01] LABS: ANISOCYTOSIS SLIGHT; EOSINOPHILS % (MANUAL) 6 % (0-7); HYPOCHROMASIA SLIGHT; LYMPHOCYTES % (MANUAL) 12 % (19-48); MONOCYTES % (MANUAL) 7 % (3.4-9.0); NEUTROPHILS % (MANUAL) 75 % (40-74); NUCLEATED RED BLOOD CELLS 1; PLATELET ESTIMATE ADEQUATE; PLATELET MORPHOLOGY COMMENT NORMAL
[2017-09-14 08:02] LABS: RBC MORPHOLOGY COMMENT NORMAL
[2017-09-14] MEDS: ASPIRIN 81 MG ENTERIC COATED PO SCH (08:11)
[2017-09-14] MEDS: FOLIC ACID 1 MG TAB PO SCH (08:11)
[2017-09-14] MEDS: SEVELAMER CARBONATE 800 MG TAB PO SCH ×3 (08:11→17:07)
[2017-09-14] MEDS: HYDRALAZINE HCL 25 MG TAB PO SCH ×3 (08:11→20:24)
[2017-09-14] MEDS: CEFEPIME HCL 1 GM VIAL IV SCH (08:11)
[2017-09-14] MEDS: DIVALPROEX SODIUM 125 MG TABDR...ER PO SCH ×2 (08:11→15:10)
[2017-09-14] MEDS: DOCUSATE SODIUM 100 MG CAP PO SCH (08:11)
[2017-09-14] MEDS: SUCRALFATE 1 GM/10 ML SUSP NG SCH ×4 (08:11→20:24)
[2017-09-14] MEDS: GABAPENTIN 100 MG CAP PO SCH (08:11)
[2017-09-14] MEDS: PANTOPRAZOLE 40 MG 10ML VIAL IV SCH (08:11)
[2017-09-14] MEDS: CYANOCOBALAMIN 1,000 MCG TAB PO SCH (08:12)
[2017-09-14] MEDS: TRIAMCINOLONE ACET 0.1% CREAM 15 GM TUBE TOP SCH ×2 (08:12→17:07)
[2017-09-14] MEDS: AMLODIPINE BESYLATE 10 MG TAB PO SCH (08:12)
[2017-09-14] MEDS: METOPROLOL SUCCINATE 50 MG TAB XL PO SCH ×2 (08:12→17:07)
[2017-09-14] MEDS: SERTRALINE HCL 50 MG TAB PO SCH (08:12)
[2017-09-14] MEDS: METOLAZONE 5 MG TAB PO SCH (08:12)
[2017-09-14] MEDS: INSULIN ASPART 70/30 100 UNITS/ML VIAL SC SCH ×2 (08:14→20:27)
[2017-09-14] MEDS: CHOLESTYRAMINE 4 GM PACKET PO SCH ×4 (08:47→20:25)
[2017-09-14] MEDS: FLUTICASONE PROPIONATE NASAL SPRAY NS SCH ×2 (08:47→17:07)
[2017-09-14] MEDS: BALSAM PERU/CASTOR OIL 60 GM OINT...G. TP SCH ×2 (08:47→17:08)
[2017-09-14] MEDS ORDERED: ONDANSETRON HCL INJ 2 MG/ML VIAL ONE (14:35)
--- NOTE | 2017-09-14 14:47 | Diagnostic Imaging Report ---
PROCEDURE: ULTRASOUND GUIDED THORACENTESIS COMPARISON: Chest ultrasound 09/13/17, chest radiograph 09/12/2017. INDICATIONS:Right pleural effusion [employer] Refinisher: Rodrigo Alonso M.D. Complications: None immediate Blood loss: Minimal Blood products administered: None Implants/grafts: None Specimens: 1100 cc straw-colored fluid Sedation/anesthesia: None Additional medications: Lidocaine 1% for local anesthesia Condition at completion of procedure: Stable Disposition: Remain in ICU FINDINGS: Informed consent was obtained from the next of kin and documented in the medical record. The patient was placed in left lateral decubitus position and the right chest wall was prepped and draped in standard sterile fashion. A suitable percutaneous approach to a moderate right pleural effusion was identified and 1% lidocaine was infiltrated into the skin and subcutaneous tissues for local anesthesia. Then under continuous sonographic guidance, a 5 [place] needle catheter system was advanced into the right pleural space. A permanent sonographic image was stored in PACS. The catheter was advanced off the needle and connected to vacuum bottle with subsequent evacuation of 1100 cc straw-colored fluid. Post procedure sonographic evaluation confirmed near complete evacuation of the pleural effusion. The catheter was removed and a sterile, occlusive dressing was applied. The patient tolerated the procedure well without immediate complication. CONCLUSION: Uncomplicated ultrasound-guided right thoracentesis with removal of 1100 cc straw-colored fluid. Specimen was sent for laboratory analysis as requested by the referring clinical team. Dictated by: Rodrigo Alonso M.D. on 09/14/2017 at 14:48 Electronically approved by: Rodrigo Alonso M.D. on 09/14/2017 at 14:48
[2017-09-14 14:48] LABS: BODY FLUID APPEARANCE CLOUDY; BODY FLUID COLOR GREEN; BODY FLUID TYPE PLEURAL
--- NOTE | 2017-09-14 14:49 | Diagnostic Imaging Report ---
PROCEDURE: CHEST XRAY POST PROCEDURE COMPARISON: Chest radiograph 09/12/2017. INDICATIONS: STATUS POST RIGHT THORACENTESIS FINDINGS: See conclusion CONCLUSION: Interval right thoracentesis with near-complete evacuation of the previously described moderate right pleural effusion. No pneumothorax. Right internal jugular central venous catheter is stable in position. Unchanged small left pleural effusion with left lower lobe opacity, likely atelectasis. Dictated by: Rodrigo Alonso M.D. on 09/14/2017 at 14:50 Electronically approved by: Rodrigo Alonso M.D. on 09/14/2017 at 14:50
[2017-09-14 16:02] LABS: RBC,BODY FLUID 3 cells/uL; WBC,BODY FLUID 18 cells/uL
[2017-09-14 16:15] LABS: LYMPHOCYTES,BODY FLUID 52 %; MONO/MACROPHG,BODY FLUID 33 %; NEUTROPHILS,BODY FLUID 15 %
--- NOTE | 2017-09-14 16:51 | Progress Note ---
DATE: September 14, 2017 PSYCHIATRIC PROGRESS NOTE Patient evaluated and events noted. Patient was also seen by Dr. Gan today. Patient was found to be in the ICU. She is sleeping at this time. She is pleasant and calm. Her daughter is in the room, who reports the patient has been doing well. She was irritable on Thursday and received some p.r.n. medication. Otherwise, there are no major issues. I discussed with the nursing staff, who report the patient has been very pleasant today as well, and she has not received any medication today. She is receiving her medications, and no serious side effects seen. No hallucinations or suicidal ideation reported. ASSESSMENT: Unspecified dementia with behavioral disturbances; history of depression. PLAN 1. Continue with Haldol p.r.n. 2. Continue with Seroquel p.r.n. 3. Continue Seroquel 12.5 mg p.o. nightly. 4. Continue with Zoloft 50 mg p.o. daily. 5. Increase Depakote from 125 three times a day to 250 mg p.o. q.12 h. Script written for 2 weeks' supply. 6. Recommend the patient to follow with outpatient psychiatry. Dictated by: CHIVO Christie Job#: [id number]
[2017-09-14] MEDS: NYSTATIN 15 GM POWDER UD BTL TOP SCH (17:08)
[2017-09-14] MEDS: QUETIAPINE FUMARATE 25 MG TAB PO PRN (18:30)
[2017-09-14] MEDS: SALMETEROL/FLUTICASONE 500/50 INH SCH (19:18)
[2017-09-14] MEDS: DIVALPROEX SODIUM 250 MG TAB...DR PO SCH (20:24)
[2017-09-14] MEDS: LEVETIRACETAM 500 MG TAB PO SCH (20:24)
[2017-09-14] MEDS: QUETIAPINE FUMARATE 25 MG TAB PO SCH (20:25)
[2017-09-14] MEDS: ATORVASTATIN 10 MG TAB PO SCH (20:25)
[2017-09-14] MEDS ORDERED: DIVALPROEX SODIUM 125 MG TABDR...ER PO SCH (21:00)
[2017-09-15] VITALS (17 sets, daily range): BP systolic 130–169; BP diastolic 45–69
[2017-09-15] MEDS: FUROSEMIDE INJ 10 MG/ML 4 ML VIAL IV SCH ×2 (00:01→08:24)
[2017-09-15] MEDS: NITROGLYCERIN 2% OINT 1 GM PKT TOP SCH ×5 (00:01→23:31)
[2017-09-15] MEDS: ALBUTEROL/IPRATROPIUM 3 ML NEB NEB SCH ×5 (03:30→23:00)
[2017-09-15] MEDS: LEVOTHYROXINE SODIUM 50 MCG TAB PO SCH (05:57)
[2017-09-15 06:11] LABS: BASOPHILS # (AUTO) 0.1 (0.0-0.1); BASOPHILS % 0.5 % (0.0-1.0); EOSINOPHILS # (AUTO) 0.3 (0.0-0.4); EOSINOPHILS % 3.2 % (0.0-6.0); HEMATOCRIT 25.8 % (34.2-44.1); HEMOGLOBIN 8.3 g/dL (12.0-16.0); LYMPHOCYTES # (AUTO) 1.5 (1.0-3.2); LYMPHOCYTES % 16.5 % (18.0-39.1); MEAN CORPUSCULAR HEMOGLOBIN 30.2 pg (28-32); MEAN CORPUSCULAR HGB CONC 32.2 g/dL (31-35); MEAN CORPUSCULAR VOLUME 93.8 fL (81-99); MONOCYTES # (AUTO) 0.8 (0.2-0.8); MONOCYTES % 8.2 % (4.4-11.3); NEUTROPHILS # (AUTO) 6.5 (2.1-6.9); NEUTROPHILS % 70.1 % (38.7-80.0); PLATELET COUNT 145 x10e3/uL (140-360); RED BLOOD COUNT 2.75 x10e6/uL (3.6-5.1); RED CELL DISTRIBUTION WIDTH 17.6 % (11.7-14.4)
[2017-09-15] MEDS: SALMETEROL/FLUTICASONE 500/50 INH SCH ×2 (07:35→19:00)
[2017-09-15] MEDS: SEVELAMER CARBONATE 800 MG TAB PO SCH ×3 (08:24→18:00)
[2017-09-15] MEDS: PANTOPRAZOLE 40 MG 10ML VIAL IV SCH (08:24)
[2017-09-15] MEDS: CEFEPIME HCL 1 GM VIAL IV SCH (08:24)
[2017-09-15] MEDS: SUCRALFATE 1 GM/10 ML SUSP NG SCH ×4 (08:24→21:34)
[2017-09-15] MEDS: HYDRALAZINE HCL 25 MG TAB PO SCH ×3 (08:24→21:34)
[2017-09-15] MEDS: DOCUSATE SODIUM 100 MG CAP PO SCH (08:25)
[2017-09-15] MEDS: ASPIRIN 81 MG ENTERIC COATED PO SCH (08:25)
[2017-09-15] MEDS: FOLIC ACID 1 MG TAB PO SCH (08:27)
[2017-09-15] MEDS: DIVALPROEX SODIUM 250 MG TAB...DR PO SCH ×2 (08:27→21:32)
[2017-09-15] MEDS: LEVETIRACETAM 500 MG TAB PO SCH ×2 (08:28→21:32)
[2017-09-15] MEDS: AMLODIPINE BESYLATE 10 MG TAB PO SCH (08:29)
[2017-09-15] MEDS: GABAPENTIN 100 MG CAP PO SCH (08:29)
[2017-09-15] MEDS: METOPROLOL SUCCINATE 50 MG TAB XL PO SCH ×2 (08:30→18:00)
[2017-09-15] MEDS: CYANOCOBALAMIN 1,000 MCG TAB PO SCH (08:30)
[2017-09-15] MEDS: SERTRALINE HCL 50 MG TAB PO SCH (08:31)
[2017-09-15] MEDS: METOLAZONE 5 MG TAB PO SCH (08:31)
[2017-09-15] MEDS: BALSAM PERU/CASTOR OIL 60 GM OINT...G. TP SCH ×2 (08:31→17:30)
[2017-09-15] MEDS: CHOLESTYRAMINE 4 GM PACKET PO SCH ×4 (08:32→21:33)
[2017-09-15] MEDS: NYSTATIN 15 GM POWDER UD BTL TOP SCH ×2 (08:32→17:30)
[2017-09-15] MEDS: FLUTICASONE PROPIONATE NASAL SPRAY NS SCH ×2 (08:32→18:12)
[2017-09-15] MEDS: TRIAMCINOLONE ACET 0.1% CREAM 15 GM TUBE TOP SCH ×2 (08:32→17:30)
[2017-09-15] MEDS: INSULIN ASPART 70/30 100 UNITS/ML VIAL SC SCH ×2 (12:35→21:33)
--- NOTE | 2017-09-15 16:03 | Progress Note ---
DATE: September 15, 2017 PSYCHIATRIC PROGRESS NOTE Patient is in the ICU without recent events. She is calm and pleasant. She states that she has been doing good. She has not received any p.r.n. IM medications last night. The patient denied any hallucinations. She has not been combative per her daughter. She denies any side effects to the medication. ASSESSMENT: Unspecified dementia with behavioral disturbances; history of depression. PLAN 1. Continue with Haldol p.r.n. 2. Continue with Seroquel p.r.n. 3. Continue Seroquel 12.5 mg p.o. nightly. 4. Continue with Zoloft 50 mg p.o. daily. 5. Continue Depakote 250 mg p.o. q.12 h. 6. Recommend the patient to follow with outpatient psychiatry. 7. Supportive therapy and monitor for agitation. Dictated by: CHIVO Christie Job#: [id number]
[2017-09-15] MEDS: FUROSEMIDE 40 MG TAB PO SCH (18:13)
[2017-09-15] MEDS: ATORVASTATIN 10 MG TAB PO SCH (21:32)
[2017-09-15] MEDS: QUETIAPINE FUMARATE 25 MG TAB PO SCH (21:33)
[2017-09-15] MEDS: HALOPERIDOL LACTATE 5 MG/ML VIAL IM PRN (23:31)
[2017-09-16] VITALS (9 sets, daily range): BP systolic 101–188; BP diastolic 34–78
[2017-09-16] MEDS: ALBUTEROL/IPRATROPIUM 3 ML NEB NEB SCH ×6 (02:48→23:02)
[2017-09-16] MEDS: NITROGLYCERIN 2% OINT 1 GM PKT TOP SCH ×3 (06:37→17:58)
[2017-09-16] MEDS: LEVOTHYROXINE SODIUM 50 MCG TAB PO SCH (06:37)
[2017-09-16] MEDS: FUROSEMIDE 40 MG TAB PO SCH ×2 (06:37→17:50)
[2017-09-16] MEDS: SALMETEROL/FLUTICASONE 500/50 INH SCH ×2 (07:00→19:00)
[2017-09-16 07:04] LABS: ALBUMIN 1.8 g/dL (3.5-5.0); ALBUMIN/GLOBULIN RATIO 0.6 (0.8-2.0); ANION GAP 13.3 mmol/L (8-16); CALCIUM 8.3 mg/dL (8.4-10.2); CREATININE, SERUM 3.08 mg/dL (0.57-1.11); POTASSIUM 4.3 mmol/L (3.5-5.1)
[2017-09-16] MEDS: SUCRALFATE 1 GM/10 ML SUSP NG SCH ×4 (07:30→20:45)
[2017-09-16] MEDS: INSULIN ASPART 70/30 100 UNITS/ML VIAL SC SCH ×2 (07:30→20:50)
[2017-09-16] MEDS: SEVELAMER CARBONATE 800 MG TAB PO SCH ×3 (08:00→17:05)
[2017-09-16] MEDS: FLUTICASONE PROPIONATE NASAL SPRAY NS SCH ×2 (09:00→17:00)
[2017-09-16] MEDS: NYSTATIN 15 GM POWDER UD BTL TOP SCH ×2 (10:15→17:48)
[2017-09-16] MEDS: BALSAM PERU/CASTOR OIL 60 GM OINT...G. TP SCH ×2 (10:15→17:48)
[2017-09-16] MEDS: TRIAMCINOLONE ACET 0.1% CREAM 15 GM TUBE TOP SCH ×2 (10:15→17:48)
--- NOTE | 2017-09-16 11:40 | Diagnostic Imaging Report ---
PROCEDURE: ULTRASOUND GUIDED THORACENTESIS COMPARISON: Thoracentesis 09/14/2017. INDICATIONS:LT THORACENTESIS FINDINGS: The procedure was performed at the bedside in the hospital room of the patient. After informed consent was obtained, the patient was placed in the decubitus position. Preliminary focused ultrasound of the left posterior chest identified a safe route into the left pleural effusion. The overlying skin was prepped and draped in usual sterile fashion. Lidocaine 1% was used for local anesthesia. Under ultrasound guidance, a centesis needle was advanced into the pleural fluid and 750 cc were aspirated. The patient tolerated the procedure well and there were no immediate post-procedural complications. A post-thoracentesis chest radiograph will be obtained. CONCLUSION: Uncomplicated ultrasound-guided left thoracentesis with removal of 750 cc. Dictated by: Jules Salinas M.D. on 09/16/2017 at 11:41 Electronically approved by: Jules Salinas M.D. on 09/16/2017 at 11:41
[2017-09-16] MEDS: CEFEPIME HCL 1 GM VIAL IV SCH (11:42)
[2017-09-16] MEDS: ASPIRIN 81 MG ENTERIC COATED PO SCH (11:43)
[2017-09-16] MEDS: LEVETIRACETAM 500 MG TAB PO SCH ×2 (11:44→20:47)
[2017-09-16] MEDS: FOLIC ACID 1 MG TAB PO SCH (11:44)
[2017-09-16] MEDS: DOCUSATE SODIUM 100 MG CAP PO SCH (11:44)
[2017-09-16] MEDS: CYANOCOBALAMIN 1,000 MCG TAB PO SCH (11:45)
[2017-09-16] MEDS: GABAPENTIN 100 MG CAP PO SCH (11:45)
[2017-09-16] MEDS: DIVALPROEX SODIUM 250 MG TAB...DR PO SCH ×2 (11:46→20:47)
[2017-09-16] MEDS: METOLAZONE 5 MG TAB PO SCH (11:47)
[2017-09-16] MEDS: CHOLESTYRAMINE 4 GM PACKET PO SCH ×4 (11:48→20:47)
[2017-09-16] MEDS: PANTOPRAZOLE 40 MG 10ML VIAL IV SCH (11:55)
[2017-09-16] MEDS: SERTRALINE HCL 50 MG TAB PO SCH (11:55)
[2017-09-16 12:19] LABS: BODY FLUID APPEARANCE CLEAR; BODY FLUID COLOR YELLOW; BODY FLUID TYPE PLEURAL
[2017-09-16 12:20] LABS: RBC,BODY FLUID 3 cells/uL; WBC,BODY FLUID 21 cells/uL
[2017-09-16] MEDS: HYDRALAZINE HCL 25 MG TAB PO SCH ×3 (12:30→20:47)
[2017-09-16] MEDS: AMLODIPINE BESYLATE 10 MG TAB PO SCH (12:30)
[2017-09-16] MEDS: METOPROLOL SUCCINATE 50 MG TAB XL PO SCH ×2 (12:58→17:56)
[2017-09-16 13:00] LABS: LYMPHOCYTES,BODY FLUID 24 %; MONO/MACROPHG,BODY FLUID 4 %; OTHER CELLS,BODY FLUID 64 %
[2017-09-16 13:04] LABS: NEUTROPHILS,BODY FLUID 8 %
--- NOTE | 2017-09-16 16:44 | Progress Note ---
DATE: September 16, 2017 PSYCHIATRIC PROGRESS NOTE Patient evaluated and events noted. Labs and notes reviewed. Patient is found to be resting in her room with daughter sitting nearby. She is sleeping at this time. Daughters report that patient has been very irritable, demanding. She received some p.r.n. Haldol last night. She is restless and agitated as per nursing staff. She is not combative as per her 2 daughters. She is receiving her medication; no serious side effects seen. ASSESSMENT: Unspecified dementia with behavioral disturbances; history of depression. PLAN 1. Continue with Haldol p.r.n. IM. 2. Continue with Seroquel p.r.n. p.o. 3. Increase Seroquel 12.5 mg p.o. nightly to 25 mg p.o. nightly. 4. Continue Zoloft 50 mg p.o. daily. 5. Continue Depakote 250 mg p.o. q. 12 hours. 6. Discuss with family member. 7. Recommend follow with outpatient psychiatry. 8. Monitor for agitation. Dictated by CHIVO Christie Job#: [id number]
[2017-09-16] MEDS: QUETIAPINE FUMARATE 25 MG TAB PO PRN (17:47)
[2017-09-16] MEDS: ATORVASTATIN 10 MG TAB PO SCH (20:47)
[2017-09-16] MEDS: QUETIAPINE FUMARATE 25 MG TAB PO SCH (20:48)
[2017-09-17] VITALS (8 sets, daily range): BP systolic 116–157; BP diastolic 40–98
[2017-09-17] MEDS: NITROGLYCERIN 2% OINT 1 GM PKT TOP SCH ×4 (00:16→17:26)
[2017-09-17] MEDS: ALBUTEROL/IPRATROPIUM 3 ML NEB NEB SCH ×6 (03:30→23:00)
[2017-09-17] MEDS: LEVOTHYROXINE SODIUM 50 MCG TAB PO SCH (06:04)
[2017-09-17] MEDS: FUROSEMIDE 40 MG TAB PO SCH ×2 (06:04→17:15)
[2017-09-17] MEDS: SALMETEROL/FLUTICASONE 500/50 INH SCH ×2 (07:00→19:00)
[2017-09-17] MEDS: INSULIN ASPART 70/30 100 UNITS/ML VIAL SC SCH ×2 (07:30→23:23)
[2017-09-17] MEDS: SEVELAMER CARBONATE 800 MG TAB PO SCH ×3 (08:18→17:11)
[2017-09-17] MEDS: SUCRALFATE 1 GM/10 ML SUSP NG SCH ×4 (08:32→23:20)
[2017-09-17] MEDS: FLUTICASONE PROPIONATE NASAL SPRAY NS SCH ×2 (08:55→17:10)
[2017-09-17] MEDS: NYSTATIN 15 GM POWDER UD BTL TOP SCH ×2 (08:55→17:11)
[2017-09-17] MEDS: BALSAM PERU/CASTOR OIL 60 GM OINT...G. TP SCH ×2 (08:55→17:11)
[2017-09-17] MEDS: TRIAMCINOLONE ACET 0.1% CREAM 15 GM TUBE TOP SCH ×2 (08:56→17:11)
[2017-09-17] MEDS: METOPROLOL SUCCINATE 50 MG TAB XL PO SCH ×2 (08:58→17:26)
[2017-09-17] MEDS: CHOLESTYRAMINE 4 GM PACKET PO SCH ×4 (08:59→23:24)
[2017-09-17] MEDS: AMLODIPINE BESYLATE 10 MG TAB PO SCH (09:11)
[2017-09-17] MEDS: ASPIRIN 81 MG ENTERIC COATED PO SCH (09:11)
[2017-09-17] MEDS: DOCUSATE SODIUM 100 MG CAP PO SCH (09:11)
[2017-09-17] MEDS: FOLIC ACID 1 MG TAB PO SCH (09:11)
[2017-09-17] MEDS: DIVALPROEX SODIUM 250 MG TAB...DR PO SCH ×2 (09:11→23:22)
[2017-09-17] MEDS: HYDRALAZINE HCL 25 MG TAB PO SCH ×3 (09:12→23:22)
[2017-09-17] MEDS: LEVETIRACETAM 500 MG TAB PO SCH ×2 (09:12→23:22)
[2017-09-17] MEDS: CYANOCOBALAMIN 1,000 MCG TAB PO SCH (09:12)
[2017-09-17] MEDS: GABAPENTIN 100 MG CAP PO SCH (09:12)
[2017-09-17] MEDS: METOLAZONE 5 MG TAB PO SCH (09:12)
[2017-09-17] MEDS: PANTOPRAZOLE 40 MG 10ML VIAL IV SCH (09:16)
[2017-09-17] MEDS: SODIUM CHLORIDE FLUSH 10 ML SYR INJ PRN (09:16)
[2017-09-17] MEDS: SERTRALINE HCL 50 MG TAB PO SCH (09:16)
--- NOTE | 2017-09-17 16:16 | Progress Note ---
DATE: September 17, 2017 PSYCHIATRIC PROGRESS NOTE Patient evaluated and events noted. Patient is lying in the bed. She alert, awake, and oriented to situation. She states she is feeling well. No events last night. She is calm and not agitated. She is not having any depression. She is not having any hallucinations. No suicidal ideation reported. She did not receive any p.r.n. IM medication yesterday. Discussed with daughter who is in the room. Daughter states the patient is doing well. She has order to be discharged but is waiting for a BiPAP machine and then will go home. Scripts were written for adjustment of medications. ASSESSMENT: Unspecified dementia with behavioral disturbances; history of depression. PLAN 1. Continue with Haldol p.r.n. IM. 2. Continue with Seroquel p.r.n. p.o. 3. Continue Seroquel 25 mg p.o. nightly. 4. Continue Zoloft 50 mg p.o. daily. 5. Continue Depakote 250 mg p.o. q.12 h. 6. Recommend followup with outpatient psychiatry. 7. Monitor for agitation. Dictated by CHIVO Christie Job#: [id number]
[2017-09-17] MEDS: MAGNESIUM HYDROXIDE 30 ML UDC PO PRN (17:21)
[2017-09-17] MEDS: QUETIAPINE FUMARATE 25 MG TAB PO PRN (18:21)
--- NOTE | 2017-09-17 21:05 | Discharge Summary ---
She is a 72-year-old female patient who had presented with the complaint of shortness of breath on August 20, a month ago. Patient was admitted with a diagnosis of decompensated mild diastolic and systolic heart failure, chronic renal failure, chronic kidney disease stage 4, diabetes with renal failure, coronary artery disease, liver cirrhosis that was severe, pleural effusion, general anasarca and cervical cancer. Patient had a very prolonged course of hospitalization upon admission. Patient was admitted with above diagnosis and the patient was treated with IV diuretic and patient had a CVA. Patient had a VQ scan done which was low probability for the PE. Patient had an echo done which showed normal LV function and diastolic dysfunction. Lexiscan was ordered. Neurologic consultation was also ordered because of the altered mental status and dementia and patient had a seizure. Patient had Lexiscan scan done which was negative for ischemia. Patient had worsening renal failure so nephrology was consulted. GI was consulted for anemia, Dr. Almodovar, and cardiology was already on the case. Patient somehow was not improving and patient was having dyspnea. Patient had multiple comorbidities which was making her not getting better. Patient had an EGD done, was found distal esophagitis, gastritis and gastroparesis. Patient also found to have cirrhosis of liver. Patient had altered mental status and the patient became encephalopathic and delirious. So psych evaluation was also done and medications were adjusted. And then patient was tried to get her off the BiPAP mask ventilation but that was unsuccessful and patient had respiratory distress and the patient had to have a rapid response. Patient was intubated and sent to the intensive care unit and patient has a pleural effusion. The patient was successfully extubated after diuresis. Patient had recurrent pleural effusion so patient right and left pleurocentesis was done. Patient remained to have renal failure. Patient was also treated with IV antibiotic, IV Zosyn. ID consultation was requested, Dr. Mckeon. Patient was given also physical therapy, occupational therapy. LTAC evaluation was earlier requested which was declined. Now finally upon stabilization and prolonged, very long, prolonged course of a month of hospitalization, patient will be discharged home and patient will need outpatient sleep study. Patient will need some diuretic but patient has a pleural effusion that is multifactorial with liver cirrhosis, low protein, portal hypertension and also with diastolic CHF and COPD, cor pulmonale and diabetes. So in detail discussion was done with patient's daughter who is the caregiver and will arrange to have patient go home with oxygen and BiPAP and patient was arranged to have a sleep study. Patient was advised to have a protein diet to improve her overall anasarca and recurrent pleural effusion. Upon stabilization, patient will be discharged home and will be followed up as outpatient. Patient's family was strongly advised for mobilization. Patient will have a close followup as outpatient with me as well as home health care to prevent any recurrent hospitalization. DISCHARGE MEDICATION: Patient was advised to continue on her medicine Keppra. She is taking 500 in the morning and 750 at night, was started on Seroquel 50 mg twice a day, metolazone 20 mg daily, Lasix 20 mg daily, iron, folic acid, Protonix. Instead of Protonix, patient was on omeprazole tabs. Will continue sertraline 50 mg daily, Lipitor, thyroid and gabapentin 300 mg at night and donepezil that she will continue and hydralazine and Norvasc. ZIA FAM MD Job#: [id number] MYRA
[2017-09-17] MEDS: ATORVASTATIN 10 MG TAB PO SCH (23:22)
[2017-09-17] MEDS: QUETIAPINE FUMARATE 25 MG TAB PO SCH (23:22)
[2017-09-18] VITALS (7 sets, daily range): BP systolic 142–173; BP diastolic 54–71
[2017-09-18] MEDS: NITROGLYCERIN 2% OINT 1 GM PKT TOP SCH ×4 (01:28→18:26)
[2017-09-18] MEDS: ALBUTEROL/IPRATROPIUM 3 ML NEB NEB SCH ×6 (01:41→23:00)
[2017-09-18] MEDS: FUROSEMIDE 40 MG TAB PO SCH ×2 (05:12→18:21)
[2017-09-18] MEDS: LEVOTHYROXINE SODIUM 50 MCG TAB PO SCH (05:12)
[2017-09-18] MEDS: QUETIAPINE FUMARATE 25 MG TAB PO PRN (05:15)
[2017-09-18] MEDS: SALMETEROL/FLUTICASONE 500/50 INH SCH ×2 (07:00→19:00)
[2017-09-18 07:05] LABS: BASOPHILS % 0.3 % (0.0-1.0); EOSINOPHILS # (AUTO) 0.1 (0.0-0.4); HEMATOCRIT 24.4 % (34.2-44.1); HEMOGLOBIN 7.8 g/dL (12.0-16.0); LYMPHOCYTES # (AUTO) 1.1 (1.0-3.2); LYMPHOCYTES % 17.9 % (18.0-39.1); MEAN CORPUSCULAR HEMOGLOBIN 30.2 pg (28-32); MEAN CORPUSCULAR VOLUME 94.6 fL (81-99); MONOCYTES # (AUTO) 0.6 (0.2-0.8); MONOCYTES % 10.7 % (4.4-11.3); NEUTROPHILS # (AUTO) 4.1 (2.1-6.9); NEUTROPHILS % 67.8 % (38.7-80.0); PLATELET COUNT 103 x10e3/uL (140-360); RED BLOOD COUNT 2.58 x10e6/uL (3.6-5.1); RED CELL DISTRIBUTION WIDTH 17.4 % (11.7-14.4)
[2017-09-18] MEDS: INSULIN ASPART 70/30 100 UNITS/ML VIAL SC SCH ×2 (07:30→22:02)
[2017-09-18] MEDS: SUCRALFATE 1 GM/10 ML SUSP NG SCH ×4 (07:34→22:00)
[2017-09-18] MEDS: SEVELAMER CARBONATE 800 MG TAB PO SCH ×3 (07:35→16:33)
[2017-09-18] MEDS: PANTOPRAZOLE 40 MG 10ML VIAL IV SCH (07:35)
[2017-09-18] MEDS: FLUTICASONE PROPIONATE NASAL SPRAY NS SCH ×2 (08:09→16:33)
[2017-09-18] MEDS: ASPIRIN 81 MG ENTERIC COATED PO SCH (08:09)
[2017-09-18] MEDS: DIVALPROEX SODIUM 250 MG TAB...DR PO SCH ×2 (08:09→22:00)
[2017-09-18] MEDS: LEVETIRACETAM 500 MG TAB PO SCH ×2 (08:09→22:00)
[2017-09-18] MEDS: HYDRALAZINE HCL 25 MG TAB PO SCH ×3 (08:09→22:00)
[2017-09-18] MEDS: FOLIC ACID 1 MG TAB PO SCH (08:09)
[2017-09-18] MEDS: AMLODIPINE BESYLATE 10 MG TAB PO SCH (08:10)
[2017-09-18] MEDS: CHOLESTYRAMINE 4 GM PACKET PO SCH ×4 (08:10→22:03)
[2017-09-18] MEDS: GABAPENTIN 100 MG CAP PO SCH (08:10)
[2017-09-18] MEDS: CYANOCOBALAMIN 1,000 MCG TAB PO SCH (08:11)
[2017-09-18] MEDS: DOCUSATE SODIUM 100 MG CAP PO SCH (08:17)
[2017-09-18] MEDS: METOPROLOL SUCCINATE 50 MG TAB XL PO SCH ×2 (08:18→18:21)
[2017-09-18] MEDS: TRIAMCINOLONE ACET 0.1% CREAM 15 GM TUBE TOP SCH ×2 (08:18→16:33)
[2017-09-18] MEDS: NYSTATIN 15 GM POWDER UD BTL TOP SCH ×2 (08:18→16:34)
[2017-09-18] MEDS: SERTRALINE HCL 50 MG TAB PO SCH (08:18)
[2017-09-18] MEDS: BALSAM PERU/CASTOR OIL 60 GM OINT...G. TP SCH ×2 (08:18→16:34)
[2017-09-18] MEDS: METOLAZONE 5 MG TAB PO SCH (08:33)
[2017-09-18] MEDS ORDERED: EPOETIN ALFA 10000 UNIT/ML VIAL SC ONE (09:45)
--- NOTE | 2017-09-18 16:43 | Progress Note ---
DATE: September 18, 2017 PSYCHIATRIC PROGRESS NOTE Patient evaluated and events noted. Patient is found to be lying in the bed. She is alert, awake, and oriented to situation. Her daughter is in the room. The patient is calm and pleasant. She did get a p.r.n. Seroquel last night. No IM injection given for the last 3 days. The patient denies depression. She is anxious to go home but waiting for a BiPAP machine before she can be discharged. She denies any depression. She denies any suicidal ideation. She denies any hallucinations. She denies any side effects of the medications. ASSESSMENT: Unspecified dementia with behavioral disturbances; history of depression. PLAN 1. Continue with Haldol p.r.n. IM. 2. Continue with Seroquel p.r.n. p.o. 3. Continue Seroquel 25 mg p.o. nightly. 4. Continue Zoloft 50 daily. 5. Continue Depakote. 6. Monitor for agitation. Dictated by CHIVO Christie Job#: [id number]
[2017-09-18] MEDS: ATORVASTATIN 10 MG TAB PO SCH (22:00)
[2017-09-18] MEDS: QUETIAPINE FUMARATE 25 MG TAB PO SCH (22:01)
[2017-09-19] VITALS: BP 143/64
[2017-09-19] MEDS: NITROGLYCERIN 2% OINT 1 GM PKT TOP SCH ×4 (00:22→17:07)
[2017-09-19] MEDS: ALBUTEROL/IPRATROPIUM 3 ML NEB NEB SCH ×6 (03:00→22:50)
[2017-09-19] MEDS: LEVOTHYROXINE SODIUM 50 MCG TAB PO SCH (06:01)
[2017-09-19] MEDS: FUROSEMIDE 40 MG TAB PO SCH ×2 (06:01→17:07)
[2017-09-19] MEDS: SALMETEROL/FLUTICASONE 500/50 INH SCH ×2 (07:05→19:00)
[2017-09-19] MEDS: INSULIN ASPART 70/30 100 UNITS/ML VIAL SC SCH ×2 (07:30→20:36)
[2017-09-19] MEDS: SUCRALFATE 1 GM/10 ML SUSP NG SCH ×4 (07:30→20:41)
[2017-09-19 08:00] VITALS: BP 146/64
[2017-09-19] MEDS: SEVELAMER CARBONATE 800 MG TAB PO SCH ×3 (08:00→17:00)
[2017-09-19 08:59] VITALS: BP 165/72
[2017-09-19] MEDS: LEVETIRACETAM 500 MG TAB PO SCH ×2 (09:00→20:40)
[2017-09-19] MEDS: HYDRALAZINE HCL 25 MG TAB PO SCH ×3 (09:00→20:40)
[2017-09-19] MEDS: IRON-VITAMIN-MINERAL CAPSULE PO SCH ×2 (09:00→17:00)
[2017-09-19] MEDS: CHOLESTYRAMINE 4 GM PACKET PO SCH ×4 (09:00→20:37)
[2017-09-19] MEDS: ASPIRIN 81 MG ENTERIC COATED PO SCH (09:00)
[2017-09-19] MEDS: NYSTATIN 15 GM POWDER UD BTL TOP SCH ×2 (09:00→17:00)
[2017-09-19] MEDS: SERTRALINE HCL 50 MG TAB PO SCH (09:00)
[2017-09-19] MEDS: METOLAZONE 5 MG TAB PO SCH (09:00)
[2017-09-19] MEDS: CYANOCOBALAMIN 1,000 MCG TAB PO SCH (09:00)
[2017-09-19] MEDS: DOCUSATE SODIUM 100 MG CAP PO SCH (09:00)
[2017-09-19] MEDS: BALSAM PERU/CASTOR OIL 60 GM OINT...G. TP SCH ×2 (09:00→17:00)
[2017-09-19] MEDS: AMLODIPINE BESYLATE 10 MG TAB PO SCH (09:00)
[2017-09-19] MEDS: FLUTICASONE PROPIONATE NASAL SPRAY NS SCH ×2 (09:00→17:00)
[2017-09-19] MEDS: TRIAMCINOLONE ACET 0.1% CREAM 15 GM TUBE TOP SCH ×2 (09:00→17:00)
[2017-09-19] MEDS: PANTOPRAZOLE 40 MG 10ML VIAL IV SCH (09:00)
[2017-09-19] MEDS: DIVALPROEX SODIUM 250 MG TAB...DR PO SCH ×2 (09:00→20:40)
[2017-09-19] MEDS: FOLIC ACID 1 MG TAB PO SCH (09:00)
[2017-09-19] MEDS: METOPROLOL SUCCINATE 50 MG TAB XL PO SCH ×2 (09:00→17:00)
[2017-09-19] MEDS: GABAPENTIN 100 MG CAP PO SCH (09:00)
[2017-09-19 09:45] LABS: BASOPHILS % 0.5 % (0.0-1.0); EOSINOPHILS # (AUTO) 0.1 (0.0-0.4); EOSINOPHILS % 1.7 % (0.0-6.0); HEMATOCRIT 24.5 % (34.2-44.1); HEMOGLOBIN 7.9 g/dL (12.0-16.0); LYMPHOCYTES % 17.6 % (18.0-39.1); MEAN CORPUSCULAR HEMOGLOBIN 30.7 pg (28-32); MEAN CORPUSCULAR HGB CONC 32.2 g/dL (31-35); MEAN CORPUSCULAR VOLUME 95.3 fL (81-99); MONOCYTES # (AUTO) 0.7 (0.2-0.8); MONOCYTES % 12.4 % (4.4-11.3); NEUTROPHILS # (AUTO) 3.9 (2.1-6.9); NEUTROPHILS % 66.6 % (38.7-80.0); PLATELET COUNT 98 x10e3/uL (140-360); RED BLOOD COUNT 2.57 x10e6/uL (3.6-5.1); RED CELL DISTRIBUTION WIDTH 17.4 % (11.7-14.4)
[2017-09-19] MEDS: ACETAMINOPHEN 325 MG TAB PO PRN (10:33)
[2017-09-19 13:00] VITALS: BP 185/76
[2017-09-19 16:06] VITALS: BP 127/59
[2017-09-19] MEDS: QUETIAPINE FUMARATE 25 MG TAB PO PRN (18:20)
[2017-09-19 20:00] VITALS: BP 138/63
[2017-09-19] MEDS: ATORVASTATIN 10 MG TAB PO SCH (20:40)
[2017-09-20] VITALS (8 sets, daily range): BP systolic 129–173; BP diastolic 60–72
[2017-09-20] MEDS: NITROGLYCERIN 2% OINT 1 GM PKT TOP SCH ×4 (00:20→17:12)
[2017-09-20] MEDS: ALBUTEROL/IPRATROPIUM 3 ML NEB NEB SCH ×6 (04:15→23:00)
[2017-09-20 05:34] LABS: BASOPHILS % 0.5 % (0.0-1.0); EOSINOPHILS # (AUTO) 0.1 (0.0-0.4); EOSINOPHILS % 1.7 % (0.0-6.0); HEMATOCRIT 24.3 % (34.2-44.1); HEMOGLOBIN 7.8 g/dL (12.0-16.0); LYMPHOCYTES # (AUTO) 1.3 (1.0-3.2); LYMPHOCYTES % 21.8 % (18.0-39.1); MEAN CORPUSCULAR HEMOGLOBIN 30.1 pg (28-32); MEAN CORPUSCULAR HGB CONC 32.1 g/dL (31-35); MEAN CORPUSCULAR VOLUME 93.8 fL (81-99); MONOCYTES # (AUTO) 0.8 (0.2-0.8); NEUTROPHILS # (AUTO) 3.6 (2.1-6.9); NEUTROPHILS % 61.5 % (38.7-80.0); PLATELET COUNT 124 x10e3/uL (140-360); RED BLOOD COUNT 2.59 x10e6/uL (3.6-5.1); RED CELL DISTRIBUTION WIDTH 17.5 % (11.7-14.4)
[2017-09-20] MEDS: FUROSEMIDE 40 MG TAB PO SCH ×2 (05:48→17:12)
[2017-09-20] MEDS: LEVOTHYROXINE SODIUM 50 MCG TAB PO SCH (05:48)
[2017-09-20 05:57] LABS: ALBUMIN 1.7 g/dL (3.5-5.0); ALBUMIN/GLOBULIN RATIO 0.5 (0.8-2.0); ALKALINE PHOSPHATASE 36 IU/L (40-150); BLOOD UREA NITROGEN 62 mg/dL (7-26); BUN/CREATININE RATIO 21 (6-25); CALCIUM 8.2 mg/dL (8.4-10.2); CARBON DIOXIDE 33 mmol/L (22-29); CHLORIDE 94 mmol/L (98-107); CREATININE, SERUM 2.92 mg/dL (0.57-1.11); EST GLOMERULAR FILTRATION RATE 16 ML/MIN (60-); SODIUM 135 mmol/L (136-145)
[2017-09-20 06:12] LABS: ALANINE AMINOTRANSFERASE < 6 IU/L (0-55); GLUCOSE 56 mg/dL (74-118)
--- NOTE | 2017-09-20 06:24 | Diagnostic Imaging Report ---
CHEST SINGLE (PORTABLE), 09/20/2017 7:00 AM Technique: CHEST SINGLE (PORTABLE) Comparison: 09/12/2017 Clinical history: Follow-up Findings: See Impression Impression: 1. Lines/Tubes: Stable right IJ CVC at the cavoatrial junction. 2. Stable cardiomediastinal silhouette. 3. Improved aeration from prior with persistent layering effusions with associated atelectasis/edema. Signed by: Dr Kasia Baig MD on 09/20/2017 6:21 AM
[2017-09-20] MEDS: SALMETEROL/FLUTICASONE 500/50 INH SCH (07:00)
[2017-09-20] MEDS: INSULIN ASPART 70/30 100 UNITS/ML VIAL SC SCH ×2 (07:30→21:30)
[2017-09-20] MEDS: SUCRALFATE 1 GM/10 ML SUSP NG SCH ×4 (08:06→21:42)
[2017-09-20] MEDS: PANTOPRAZOLE 40 MG 10ML VIAL IV SCH (08:46)
[2017-09-20] MEDS: FLUTICASONE PROPIONATE NASAL SPRAY NS SCH ×2 (08:46→17:12)
[2017-09-20] MEDS: SEVELAMER CARBONATE 800 MG TAB PO SCH ×3 (08:46→17:12)
[2017-09-20] MEDS: HYDRALAZINE HCL 25 MG TAB PO SCH ×3 (08:46→21:42)
[2017-09-20] MEDS: CHOLESTYRAMINE 4 GM PACKET PO SCH ×4 (08:47→21:43)
[2017-09-20] MEDS: SERTRALINE HCL 50 MG TAB PO SCH (08:47)
[2017-09-20] MEDS: NYSTATIN 15 GM POWDER UD BTL TOP SCH ×2 (08:47→17:02)
[2017-09-20] MEDS: CYANOCOBALAMIN 1,000 MCG TAB PO SCH (08:47)
[2017-09-20] MEDS: DIVALPROEX SODIUM 250 MG TAB...DR PO SCH ×2 (08:47→21:47)
[2017-09-20] MEDS: DOCUSATE SODIUM 100 MG CAP PO SCH (08:47)
[2017-09-20] MEDS: ASPIRIN 81 MG ENTERIC COATED PO SCH (08:47)
[2017-09-20] MEDS: METOPROLOL SUCCINATE 50 MG TAB XL PO SCH ×2 (08:47→17:12)
[2017-09-20] MEDS: METOLAZONE 5 MG TAB PO SCH (08:47)
[2017-09-20] MEDS: GABAPENTIN 100 MG CAP PO SCH (08:47)
[2017-09-20] MEDS: LEVETIRACETAM 500 MG TAB PO SCH ×2 (08:47→21:43)
[2017-09-20] MEDS: IRON-VITAMIN-MINERAL CAPSULE PO SCH ×2 (08:47→17:12)
[2017-09-20] MEDS: FOLIC ACID 1 MG TAB PO SCH (08:47)
[2017-09-20] MEDS: BALSAM PERU/CASTOR OIL 60 GM OINT...G. TP SCH ×2 (08:47→17:02)
[2017-09-20] MEDS: AMLODIPINE BESYLATE 10 MG TAB PO SCH (08:47)
[2017-09-20] MEDS: TRIAMCINOLONE ACET 0.1% CREAM 15 GM TUBE TOP SCH ×2 (08:48→17:02)
[2017-09-20] MEDS ORDERED: QUETIAPINE FUMARATE 25 MG TAB PO SCH (17:00)
[2017-09-20] MEDS: ATORVASTATIN 10 MG TAB PO SCH (21:43)
[2017-09-21] VITALS: BP 144/78
[2017-09-21] MEDS: NITROGLYCERIN 2% OINT 1 GM PKT TOP SCH ×4 (00:12→18:20)
[2017-09-21] MEDS: ALBUTEROL/IPRATROPIUM 3 ML NEB NEB SCH ×6 (03:00→23:00)
[2017-09-21 04:00] VITALS: BP 131/62
[2017-09-21] MEDS: LEVOTHYROXINE SODIUM 50 MCG TAB PO SCH (05:10)
[2017-09-21] MEDS: FUROSEMIDE 40 MG TAB PO SCH ×2 (05:11→18:20)
[2017-09-21] MEDS: INSULIN ASPART 70/30 100 UNITS/ML VIAL SC SCH ×2 (07:30→21:00)
[2017-09-21 08:13] VITALS: BP 172/74
[2017-09-21] MEDS: CHOLESTYRAMINE 4 GM PACKET PO SCH ×4 (09:00→21:14)
[2017-09-21 10:55] VITALS: BP 172/74
[2017-09-21] MEDS: IRON-VITAMIN-MINERAL CAPSULE PO SCH ×2 (10:55→18:20)
[2017-09-21] MEDS: SERTRALINE HCL 50 MG TAB PO SCH (10:55)
[2017-09-21] MEDS: NYSTATIN 15 GM POWDER UD BTL TOP SCH ×2 (10:55→18:20)
[2017-09-21] MEDS: PANTOPRAZOLE 40 MG 10ML VIAL IV SCH (10:55)
[2017-09-21] MEDS: SEVELAMER CARBONATE 800 MG TAB PO SCH ×3 (10:55→18:20)
[2017-09-21] MEDS: DOCUSATE SODIUM 100 MG CAP PO SCH (10:55)
[2017-09-21] MEDS: BALSAM PERU/CASTOR OIL 60 GM OINT...G. TP SCH ×2 (10:55→18:20)
[2017-09-21] MEDS: AMLODIPINE BESYLATE 10 MG TAB PO SCH (10:55)
[2017-09-21] MEDS: GABAPENTIN 100 MG CAP PO SCH (10:55)
[2017-09-21] MEDS: DIVALPROEX SODIUM 250 MG TAB...DR PO SCH ×2 (10:55→21:14)
[2017-09-21] MEDS: SUCRALFATE 1 GM/10 ML SUSP NG SCH ×4 (10:55→21:13)
[2017-09-21] MEDS: FOLIC ACID 1 MG TAB PO SCH (10:55)
[2017-09-21] MEDS: METOPROLOL SUCCINATE 50 MG TAB XL PO SCH ×2 (10:55→18:20)
[2017-09-21] MEDS: LEVETIRACETAM 500 MG TAB PO SCH ×2 (10:55→21:14)
[2017-09-21] MEDS: TRIAMCINOLONE ACET 0.1% CREAM 15 GM TUBE TOP SCH ×2 (10:55→18:20)
[2017-09-21] MEDS: HYDRALAZINE HCL 25 MG TAB PO SCH ×3 (10:56→21:14)
[2017-09-21] MEDS: FLUTICASONE PROPIONATE NASAL SPRAY NS SCH ×2 (10:56→18:20)
[2017-09-21] MEDS ORDERED: EPOETIN ALFA 10000 UNIT/ML VIAL SC ONE (11:15)
[2017-09-21] MEDS: METOLAZONE 5 MG TAB PO SCH (12:40)
--- NOTE | 2017-09-21 15:07 | Progress Note ---
DATE: September 21, 2017 PSYCHIATRIC PROGRESS NOTE Patient evaluated and events noted. Patient is found to be lying on her bed. Her daughter is in the room. The patient is alert, awake, and oriented to situation. She is doing well. She denies any depression. She denies any hallucination. She has not received any p.r.n. IM medication overnight. She is waiting for BiPAP to be sent to her house so she can be discharged home. She denies any problem with medication. Discussed with daughter. Daughter states the patient is doing well. I addressed any concerns. ASSESSMENT: Unspecified dementia with behavioral disturbances; history of depression. PLAN 1. Continue with Haldol p.r.n. IM. 2. Continue with Seroquel p.r.n. p.o. 3. Continue Seroquel 25 mg p.o. nightly. 4. Continue Zoloft 50 daily. 5. Continue Depakote. 6. Monitor for agitation. Dictated by CHIVO Christie Job#: [id number]
[2017-09-21 16:46] VITALS: BP 158/75
[2017-09-21] MEDS: QUETIAPINE FUMARATE 25 MG TAB PO PRN (18:30)
[2017-09-21 20:00] VITALS: BP 152/70
[2017-09-21] MEDS ORDERED: QUETIAPINE FUMARATE 25 MG TAB PO SCH (21:00)
[2017-09-21] MEDS: ATORVASTATIN 10 MG TAB PO SCH (21:14)
[2017-09-22] VITALS: BP 150/66
[2017-09-22] MEDS: NITROGLYCERIN 2% OINT 1 GM PKT TOP SCH ×2 (01:16→06:39)
[2017-09-22] MEDS: ALBUTEROL/IPRATROPIUM 3 ML NEB NEB SCH ×2 (03:00→07:00)
[2017-09-22 04:00] VITALS: BP 172/73
[2017-09-22] MEDS: LEVOTHYROXINE SODIUM 50 MCG TAB PO SCH (06:37)
[2017-09-22] MEDS: FUROSEMIDE 40 MG TAB PO SCH (06:37)
[2017-09-22] MEDS: INSULIN ASPART 70/30 100 UNITS/ML VIAL SC SCH (07:30)
[2017-09-22] MEDS: CHOLESTYRAMINE 4 GM PACKET PO SCH (09:00)
[2017-09-22] MEDS: SEVELAMER CARBONATE 800 MG TAB PO SCH (09:45)
[2017-09-22] MEDS: SUCRALFATE 1 GM/10 ML SUSP NG SCH (09:45)
[2017-09-22] MEDS: PANTOPRAZOLE 40 MG 10ML VIAL IV SCH (09:45)
[2017-09-22] MEDS: LEVETIRACETAM 500 MG TAB PO SCH (09:46)
[2017-09-22] MEDS: METOPROLOL SUCCINATE 50 MG TAB XL PO SCH (09:46)
[2017-09-22] MEDS: FOLIC ACID 1 MG TAB PO SCH (09:46)
[2017-09-22] MEDS: SERTRALINE HCL 50 MG TAB PO SCH (09:46)
[2017-09-22] MEDS: DIVALPROEX SODIUM 250 MG TAB...DR PO SCH (09:46)
[2017-09-22] MEDS: IRON-VITAMIN-MINERAL CAPSULE PO SCH (09:46)
[2017-09-22] MEDS: AMLODIPINE BESYLATE 10 MG TAB PO SCH (09:46)
[2017-09-22] MEDS: METOLAZONE 5 MG TAB PO SCH (09:46)
[2017-09-22] MEDS: HYDRALAZINE HCL 25 MG TAB PO SCH (09:46)
[2017-09-22] MEDS: DOCUSATE SODIUM 100 MG CAP PO SCH (09:46)
[2017-09-22] MEDS: GABAPENTIN 100 MG CAP PO SCH (09:46)
[2017-09-22] MEDS: BALSAM PERU/CASTOR OIL 60 GM OINT...G. TP SCH (09:47)
[2017-09-22] MEDS: NYSTATIN 15 GM POWDER UD BTL TOP SCH (09:47)
[2017-09-22] MEDS: TRIAMCINOLONE ACET 0.1% CREAM 15 GM TUBE TOP SCH (09:47)
--- NOTE | 2017-09-22 10:37 | Progress Note ---
DATE: September 22, 2017 PSYCHIATRIC PROGRESS NOTE Patient evaluated and events noted. Vital signs reviewed. Patient is lying on the bed having physical therapy. Daughter is in the room. The patient appears to be pleasant, cooperative and relaxed. She states she is doing well. Daughter states the patient is anxious to go home. She is still waiting for the BiPAP machine to be available at home before she can be discharged. She is not having any agitation. She has not received any p.r.n. IM medication. She is getting her scheduled medication. No serious side effects are reported. ASSESSMENT: Unspecified dementia with behavioral disturbances; history of depression. PLAN 1. Continue Haldol p.r.n. IM. 2. Continue Seroquel p.r.n. p.o. 3. Continue Seroquel 25 mg p.o. nightly. 4. Continue Zoloft 50 mg p.o. daily. 5. Continue Depakote. 6. Monitor for agitation and mood. 7. Supportive therapy. Dictated by CHIVO Christie Job#: [id number]
[2017-09-22 12:00] VITALS: BP 167/70
[2017-09-23] MEDS ORDERED: PANTOPRAZOLE SOD 40 MG TABEC PO SCH (07:30)
--- NOTE | 2017-09-23 14:26 | Discharge Summary ---
ADDENDUM TO PREVIOUSLY DICTATED DISCHARGE SUMMARY This 72-year-old female patient was finally discharged on September 22, 2017. You can refer to the previously dictated discharge summary. The patient was waiting for arrangements for the outpatient BiPAP machine at home. The patient was waiting for almost a week for that arrangement and approval from the insurance and unnecessary bureaucracy. Finally, the patient's BiPAP was arranged. The patient is being discharged home with BiPAP. ZIA FAM MD Job#: [id number]
== END 2017-09-22 14:16 | disposition home health service (06) | DRG 291 ==
LOC: ER 10:10 → EDBEDREQ 15:29 → ERHOLD 15:32 → MED/SURG3 19:46 → IMCU 09-01 17:55 → MED/SURG 09-07 22:02 → MED/SURG2 09-08 06:41 → ICU 09-09 13:35 → IMCU 09-15 15:52 → MED/SURG 09-18 20:40
PROVIDERS: ADMIT Internal Medicine; ATTEND Internal Medicine
PROC: 0DB68ZX Excision of Stomach, Via Natural or Artificial Opening Endoscopic, Diagnostic (ICD-10-PCS; 2017-08-26)
PROC: 02HV33Z Insertion of Infusion Device into Superior Vena Cava, Percutaneous Approach (ICD-10-PCS; 2017-09-06)
PROC: 5A1945Z Respiratory Ventilation, 24-96 Consecutive Hours (ICD-10-PCS; principal; 2017-09-08)
PROC: 0BH17EZ Insertion of Endotracheal Airway into Trachea, Via Natural or Artificial Opening (ICD-10-PCS; 2017-09-08)
PROC: 30233N1 Transfusion of Nonautologous Red Blood Cells into Peripheral Vein, Percutaneous Approach (ICD-10-PCS; 2017-09-09)
PROC: 0W993ZZ Drainage of Right Pleural Cavity, Percutaneous Approach (ICD-10-PCS; 2017-09-14)
PROC: 0W9B3ZZ Drainage of Left Pleural Cavity, Percutaneous Approach (ICD-10-PCS; 2017-09-16)
DX: I13.0 Hypertensive heart and chronic kidney disease with heart failure and stage 1 through stage 4 chronic kidney disease, or unspecified chronic kidney disease (principal); I50.43 Acute on chronic combined systolic (congestive) and diastolic (congestive) heart failure; J96.22 Acute and chronic respiratory failure with hypercapnia; N17.0 Acute kidney failure with tubular necrosis; I67.83 Posterior reversible encephalopathy syndrome; A41.9 Sepsis, unspecified organism; J18.9 Pneumonia, unspecified organism; N18.4 Chronic kidney disease, stage 4 (severe); E46 Unspecified protein-calorie malnutrition; D69.6 Thrombocytopenia, unspecified; N17.9 Acute kidney failure, unspecified; I69.354 Hemiplegia and hemiparesis following cerebral infarction affecting left non-dominant side; G40.209 Localization-related (focal) (partial) symptomatic epilepsy and epileptic syndromes with complex partial seizures, not intractable, without status epilepticus; F03.91 Unspecified dementia, unspecified severity, with behavioral disturbance; F33.1 Major depressive disorder, recurrent, moderate; E87.1 Hypo-osmolality and hyponatremia; E11.51 Type 2 diabetes mellitus with diabetic peripheral angiopathy without gangrene; I25.10 Atherosclerotic heart disease of native coronary artery without angina pectoris; Z85.41 Personal history of malignant neoplasm of cervix uteri; Z85.89 Personal history of malignant neoplasm of other organs and systems; E11.42 Type 2 diabetes mellitus with diabetic polyneuropathy; E11.319 Type 2 diabetes mellitus with unspecified diabetic retinopathy without macular edema; K74.60 Unspecified cirrhosis of liver; B19.20 Unspecified viral hepatitis C without hepatic coma; J32.9 Chronic sinusitis, unspecified; D64.9 Anemia, unspecified; E03.9 Hypothyroidism, unspecified; K20.9 Esophagitis, unspecified; K29.70 Gastritis, unspecified, without bleeding; K31.84 Gastroparesis; K59.00 Constipation, unspecified; Z99.3 Dependence on wheelchair; E66.9 Obesity, unspecified; Z68.33 Body mass index [BMI] 33.0-33.9, adult; R07.89 Other chest pain; F31.9 Bipolar disorder, unspecified; G47.33 Obstructive sleep apnea (adult) (pediatric)
CPT/HCPCS: 32555; 36415; 36556; 36600; 43239; 51700; 70450; 70551; 71045; 74176; 74470; 76604; 76770; 76937; 77001; 78278; 78452; 78582; 80048; 80053; 81001; 81015; 82140; 82150; 82550; 82553; 82570; 82607; 82728; 82805; 82948; 83036; 83540; 83605; 83615; 83690; 83735; 83880; 84100; 84132; 84156; 84157; 84300; 84443; 84466; 84484; 85014; 85018; 85025; 85045; 85610; 85730; 86850; 86900; 86922; 87040; 87070; 87071; 87081; 87086; 87186; 87205; 87493; 88305; 88312; 89051; 93005; 93017; 93306; 94002; 94003; 94640; 94660; 96367; 96372; 96375; 96376; 97139; 99284; A9502; A9512; A9540; A9558; C1751; J0295; J0360; J0692; J1200; J1630; J1815; J1940; J2060; J2250; J2270; J2405; J2543; J3370; J3480; J7030; J7050; J7799; P9016; Q4081

== ENCOUNTER → 2017-09-30 | Outpatient (CLI) | payer MEDICARE ==
[~2017-09-30] MED LIST changes: +AMLODIPINE BESY10 MG PO; +ARICEPT5 MG PO; +ASPIRIN325 MG PO; +FEROSUL325 MG PO; +FOLIC ACID1 MG PO; +KEPPRA500 MG PO; +LEVETIRACETAM500 MG PO; +LEVOTHYROXINE50 MCG PO; +MIRTAZAPINE15 MG PO; +STOOL SOFTENER100 MG PO; +ULTRAM50 MG PO; +VITAMIN B-121000 MCG PO; +ZOFRAN ODT4 MG PO
--- NOTE | 2017-10-09 19:29 | Polysomnography ---
DATE OF STUDY: POLYSOMNOGRAM REPORT A patient of Dr. Juan Palacios. This represents a split night study. Patient has a history of COPD and respiratory failure. She has been on BiPAP at home at a level of 12/8 because of her chronic respiratory failure in attempt to prevent readmission. Patient is 5 feet 4 inches, 184 pounds. [place] sleepiness score is elevated at 32. Neck size was 16. Patient was studied using standard EEG lead montage in addition to EEG, electrooculogram, submentalis EMG, anterior tibialis EMG, nasal and oral thermistors, rib cage and abdominal strain gauge monitor, pulse oximeter, hall monitor. The study was abnormal. During first 162 minutes, the patient went through all stages of sleep including REM sleep. Sleep efficiency, however, was reduced to 83%. She was kept on 2 liters prior to this study, but during this study oxygen was not provided. There were 10 obstructive apneas, 39 hypopneas, 6 respiratory event-related arousals. Longest apnea was 15 seconds. Respiratory disturbance index was 24.6, consistent with moderately severe obstructive sleep apnea. Lowest saturation recorded was 78%. Patient was then fitted with a Bot nasal CPAP. She was given a ResMed AirFit F10 full face mask. She was titrated from a pressure of 4 cm to 10, then to BiPAP to a final pressure of 19/12 with a backup rate of 12 due to hypoventilation. Sleep efficiency gregory to 99%. All stages of sleep were recorded. It is recommended that the patient be given a home trial of nasal BiPAP at a level of 19/12 with a backup rate of 12, heated humidification and a small ResMed AirFit F10 full face mask. Other therapeutic options might include tracheostomy. Certainly weight reduction should be part of the patient's therapeutic program. Thank you for this kind referral. Job#: [id number]
== END ==
LOC: SLEEP 09:38
PROVIDERS: ATTEND Internal Medicine
DX: G47.33 Obstructive sleep apnea (adult) (pediatric) (principal)
CPT/HCPCS: 95811

== ENCOUNTER → 2018-04-02 | Outpatient (CLI) | payer MEDICARE ==
--- NOTE | 2018-04-11 15:40 | Polysomnography ---
DATE OF STUDY: CPAP TITRATION REPORT Patient of Dr. Juan Palacios. Patient is 5 feet 4 inches. Neck size 15.5. Ro[place]'s sleepiness score is 16. Body mass index 26.1. Patient has had a history of obstructive sleep apnea and currently uses a BiPAP at home, which was felt to be ineffective and she was referred for titration. She was monitored using standard EEG lead montage including electrooculogram, submentalis EMG, anterior tibialis EMG, nasal and oral thermistors, rib cage and abdominal strain gauge monitor, pulse oximetry. Multiple PVCs were noted during this study. There were 29 hypopneas, longest in duration 48 seconds. The apnea hypopnea index was 5.8, respiratory disturbance index was 8.7 during the entire study. Patient required a wedge pillow to elevate her head for comfort. BiPAP titration was started at level of 8/4, it was titrated to a level of 19/15. This level apneas and hypopneas were essentially eliminated. It is recommended that sleep efficiency was reduced at 66%. It was recommended that the patient continue on BiPAP at a level of 19/15. Heated humidifier should be added to improve patient comfort and compliance. She was fitted with a ResMed AirFit F10 size small mask which provided a good fit. Job#: [id number]
== END ==
LOC: SLEEP 19:28
PROVIDERS: ATTEND Internal Medicine Pulmonary Disease
DX: G47.33 Obstructive sleep apnea (adult) (pediatric) (principal)
CPT/HCPCS: 95811